=== PATIENT | male | born 1965 | race African-American/Black ===

== ENCOUNTER 2020-09-06 14:32 | Inpatient (IN) | payer MEDICARE, MEDICAID ==
[~2020-09-06] VITALS: Ht 172.7 cm; Wt 100.0 kg
--- NOTE | 2020-09-06 16:26 | Diagnostic Imaging Report ---
PROCEDURE: CT pelvis without contrast. TECHNIQUE: Multiple contiguous axial images were obtained through the pelvis without the use of intravenous contrast. Sagittal and coronal reformations were performed. Auto Exposure Controls were utilized during the CT exam to meet ALARA standards for radiation dose reduction. INDICATION: Sacral wound. Patient is nonverbal. CORRELATION STUDY: None FINDINGS: Soft tissue distortion and gas at the tip of the sacrum and coccyx. There is erosion of portions of the coccyx consistent with osteomyelitis. Diffuse soft tissue thickening is present. Definitive drainable abscess collection is not demonstrated. Mild stranding towards the level of the rectum. The remaining osseous structures are otherwise intact. Overhanging osteophytes at the right acetabulum. Femoral head acetabular relationships are maintained and the bony trabecular pattern is preserved. There is presence of a small right and to lesser degree left hip joint effusion. Urinary bladder is largely decompressed around a Degroot catheter. Small amount of gas is noted non-dependently. Visualized colon demonstrates moderate stool retention. IMPRESSION: Sacral decubitus ulcer with erosion of the coccyx compatible with underlying osteomyelitis. Dictated by: Dictated on workstation # [id number]
[2020-09-06 16:29] LABS: BILIRUBIN,URINE NEGATIVE (NEGATIVE); CLARITY,URINE CLOUDY; COLOR,URINE YELLOW; GLUCOSE, URINE (UA) NEGATIVE (NEGATIVE); KETONES,URINE NEGATIVE (NEGATIVE); LEUKOCYTE ESTERASE ,URINE 2+ (NEGATIVE); NITRITE,URINE NEGATIVE (NEGATIVE); PROTEIN,URINE TRACE (NEGATIVE)
[2020-09-06 16:38] LABS: BACTERIA,URINE NEGATIVE /HPF; RBC,URINE 0-2 /HPF; YEAST,URINE LARGE /HPF
--- NOTE | 2020-09-06 16:40 | Diagnostic Imaging Report ---
EXAM: Bilateral feet radiographs. EXAM DATE: 09/06/2020. COMPARISON: None. HISTORY: Bilateral feet wounds. TECHNIQUE: Two views of both feet. FINDINGS: There is no acute fracture, dislocation, or destructive osseous process. There are mild degenerative changes of the midfoot. Joint spaces are otherwise preserved. The soft tissues are normal. Small posterior calcaneal enthesophytes bilaterally. IMPRESSION: No acute osseous abnormality of the feet. No suspicious erosion to suggest osteomyelitis. Dictated by: Dictated on workstation # [id number]
--- NOTE | 2020-09-06 16:48 | ED General ---
General Chief Complaint: Skin/Wound Problems Stated Complaint: WOUND Nursing Triage Note: Pt brought to ER via [facility] from [facility] after telehealth with provider stating patient needed to go to ER for admission 6-8 weeks of antibiotics for a wound on his sacrum. Nursing Sepsis Screen: No Definite Risk Source of Information: Family, Assisted Records, Old Records Exam Limitations: No Limitations History of Present Illness Date Seen by Provider: Sep 06, 2020 Time Seen by Provider: 14:36 Initial Comments This 55-year-old gentleman presents to the emergency room via EMS from the [facility] after a telehealth visit with a wound care provider. He has a deep sacral wound with concern for possible osteomyelitis. 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 He is nonverbal. He does respond some to stimuli but does not meaningfully communicate. He has a tracheostomy and PEG tube. He also has necrotic decubitus ulcers on his heels. He had a stay at [place] before being admitted to the [facility]. The wound care provider felt he needed assessment in the emergency room with possible admission for IV antibiotics and surgery. Allergies and Home Medications Allergies Coded Allergies: No Known Drug Allergies (Unverified , 09/06/20) Home Medications Acetaminophen 325 Mg Tablet, 650 MG PEG TID, (Reported) Last Action: Continued Acetylcysteine 600 Mg Capsule, 1,200 MG PEG BID, (Reported) Last Action: Converted Amlodipine Besylate 10 Mg Tablet, 10 MG PEG DAILY, (Reported) HOLD IF SBP LESS THAN 100 Last Action: Continued Banana Flakes/Tos 1 Each Powd.pack, 1 EACH PEG TID, (Reported) Last Action: Converted Caffeine 200 Mg Tablet, 200 MG PEG BID, (Reported) Last Action: Converted Cholecalciferol (Vitamin D3) 1,250 Mcg Capsule, 1,250 MCG PEG FRI, (Reported) Last Action: Converted Cyanocobalamin (Vitamin B-12) 1,000 Mcg Tablet, 1,000 MCG PEG DAILY, (Reported) Last Action: Continued Dimethicone 118 Ml Cream.ml., 1 APPLIC TP BID, (Reported) APPLY TO BILATERAL GROIN Last Action: Converted Famotidine 20 Mg Tablet, 20 MG PEG BID, (Reported) Last Action: Continued Folic Acid 1 Mg Tablet, 4 MG PEG DAILY, (Reported) TAKES 1 (4MG) TABS Last Action: Continued Hydrocodone/Acetaminophen 1 Each Tablet, 2 TAB PEG DAILY, (Reported) GIVE 30MIN PRIOR TO DRESSING PAIN Last Action: Continued Insulin Lispro 100 Unit/1 Ml Insuln.pen, UNIT SQ QIDACHS, (Reported) 70-140=0 UNITS CALLS PHYSICIAN IF BS LESS THEN 70 141-180=2 UNITS 181-220=4 UNITS 221-260=6 UNITS 261-300=8 UNITS 301-340=10 UNITS 341-280=12 UNITS 281- 400=14 UNIT- CALL PHYSICAN IS BS GREATER THAN 400 Last Action: Held Ipratropium/Albuterol Sulfate 3 Ml Ampul.neb, 3 ML IH Q6H, (Reported) Last Action: Continued Lactobacillus Acidophilus 1 Each Capsule, 1 EACH PEG BID, (Reported) Last Action: Converted Lactose-Reduced Food/Fiber 1,000 Ml Liquid, 60 ML PEG BID, (Reported) 60ML/HR TWO TIMES A DAY START AT 0600. STOP FEEDING AT 2200 Last Action: Converted Metoprolol Tartrate 50 Mg Tablet, 50 MG PEG BID, (Reported) HOLD FOR SBP LESS THAN 100 Last Action: Continued Niacinamide 500 Mg Tablet, 1,500 MG PEG DAILY, (Reported) TAKES 3 (500MG) TABS Last Action: Converted [place]-3 Fatty Acids 1,000 Mg Capsule, 3,000 MG PEG DAILY, (Reported) TAKES 3 (1000MG) CAPS Last Action: Converted Thiamine HCl 100 Mg Tablet, 200 MG PEG BID, (Reported) TAKES 2 (100MG) TABS Last Action: Continued Ubidecarenone 200 Mg Capsule, 200 MG PEG DAILY, (Reported) Last Action: Converted Whey Protein Isolate 1 Each Powd.pack, 1 EACH PEG Q4H, (Reported) Last Action: Converted [Demeclocycline] 300 TAB, 300 MG PEG BID, (Reported) Last Action: Held Patient Home Medication List Home Medication List Reviewed: Yes Review of Systems Review of Systems Constitutional: no symptoms reported EENTM: see HPI Respiratory: see HPI Cardiovascular: no symptoms reported Gastrointestinal: see HPI Genitourinary: no symptoms reported Musculoskeletal: see HPI Skin: see HPI Psychiatric/Neurological: See HPI Hematologic/Lymphatic: No Symptoms Reported Immunological/Allergic: no symptoms reported Past Uxaoije-Ladalb-Zdvrdq Hx Past Med/Social Hx: Reviewed Nursing Past Med/Soc Hx Patient Social History Alcohol Use: Denies Use 2nd Hand Smoke Exposure: No Recent Infectious Disease Expo: No Recent Hopitalizations: Yes Immunizations Up To Date Tetanus Booster (TDap): Less than 5yrs PED Vaccines UTD: Yes Seasonal Allergies Seasonal Allergies: No Past Medical History Surgeries: Yes (PEG tube) Abdominal, Tracheostomy Respiratory: Yes (Chronic respiratory failure) Currently Using CPAP: No Currently Using BIPAP: No Cardiac: Yes Congenital Heart Disease, Hypertension Neurological: Yes (Dysphagia, aphasia) Seizure Disorder, Stroke Genitourinary: Yes UTI-Chronic Gastrointestinal: No Musculoskeletal: Yes Spasms, Contracture Endocrine: Yes Diabetes, Non-Insulin dep HEENT: Yes Chronic Eye Infection Cancer: No Psychosocial: No Integumentary: Yes Recent Skin Changes Blood Disorders: No Physical Exam Vital Signs Vital Signs - First Documented 09/06/20 09/06/20 16:00 16:05 Temp 36.3 Pulse 96 Resp 16 B/P (MAP) 113/86 (95) Pulse Ox 100 O2 Delivery Trach Collar O2 Flow Rate 2.00 Capillary Refill : Less Than 3 Seconds Height, Weight, BMI Height: '" Weight: lbs. oz. kg; 33.00 BMI Method: General Appearance: No Apparent Distress, WD/WN, Other (Minimally responsive) HEENT: Other (Mucous membranes moist. Purulent drainage from the right eye with a filmy appearance to the eye surface and slight injection of erythema.) Neck: Other (Tracheostomy in place) Respiratory: Lungs Clear, Normal Breath Sounds, No Accessory Muscle Use Cardiovascular: Regular Rate, Rhythm, No Edema, No Murmur Gastrointestinal: Normal Bowel Sounds, Non Tender, Soft, Other (Feeding tube in place) Extremity: Normal Inspection, No Pedal Edema Neurologic/Psychiatric: Other (Nearly complete quadriplegia. Responds primarily to pressure and other stimuli such as tracheostomy suctioning but tends not to respond to other stimuli) Skin: Warm/Dry, Other (Necrotic decubitus ulcers on both heels. Very deep sacral wound.) Focused Exam Lactate Level 09/06/20 17:42: Lactic Acid Level 1.64 Lactic Acid Level Laboratory Tests Test 09/06/20 17:42 Lactic Acid Level 1.64 MMOL/L (0.50-2.00) Progress/Results/Core Measures Suspected Sepsis Recent Fever Within 48 Hours: No Infection Criteria Present: None New/Unexplained Altered Menta: No Sepsis Screen: No Definite Risk SIRS Temperature: Pulse: 96 Respiratory Rate: 16 Blood Pressure 113 /86 Mean: 95 09/06/20 17:42: Lactic Acid Level 1.64 Laboratory Tests 09/06/20 16:55: INR Comment 1.1 Results/Orders Lab Results Laboratory Tests Test 09/06/20 16:22 09/06/20 16:55 09/06/20 17:42 Range/Units Urine Color YELLOW Urine Clarity CLOUDY Urine pH 5.0 5-9 Urine Specific [place] 1.020 1.016-1.022 Urine Protein TRACE H NEGATIVE Urine Glucose (UA) NEGATIVE NEGATIVE Urine Ketones NEGATIVE NEGATIVE Urine Nitrite NEGATIVE NEGATIVE Urine Bilirubin NEGATIVE NEGATIVE Urine Urobilinogen 0.2 < = 1.0 MG/DL Urine Leukocyte Esterase 2+ H NEGATIVE Urine RBC (Auto) 1+ H NEGATIVE Urine RBC 0-2 /HPF Urine WBC 10-25 H /HPF Urine Squamous Epithelial Cells NONE /HPF Urine Crystals NONE /LPF Urine Bacteria NEGATIVE /HPF Urine Casts NONE /LPF Urine Mucus NEGATIVE /LPF Urine Yeast LARGE H /HPF Urine Culture Indicated YES White Blood Count 15.8 H 4.3-11.0 10^3/uL Red Blood Count 3.91 L 4.30-5.52 10^6/uL Hemoglobin 11.9 L 13.3-17.7 g/dL Hematocrit 35 L 40-54 % Mean Corpuscular Volume 89 80-99 fL Mean Corpuscular Hemoglobin 30 25-34 pg Mean Corpuscular Hemoglobin Concent 34 32-36 g/dL Red Cell Distribution Width 13.5 10.0-14.5 % Platelet Count 431 H 130-400 10^3/uL Mean Platelet Volume 9.6 9.0-12.2 fL Immature Granulocyte % (Auto) 1 % Neutrophils (%) (Auto) 69 42-75 % Lymphocytes (%) (Auto) 18 12-44 % Monocytes (%) (Auto) 8 0-12 % Eosinophils (%) (Auto) 5 0-10 % Basophils (%) (Auto) 0 0-10 % Neutrophils # (Auto) 10.9 H 1.8-7.8 10^3/uL Lymphocytes # (Auto) 2.8 1.0-4.0 10^3/uL Monocytes # (Auto) 1.2 H 0.0-1.0 10^3/uL Eosinophils # (Auto) 0.7 H 0.0-0.3 10^3/uL Basophils # (Auto) 0.1 0.0-0.1 10^3/uL Immature Granulocyte # (Auto) 0.1 0.0-0.1 10^3/uL Neutrophils % (Manual) 70 % Lymphocytes % (Manual) 17 % Monocytes % (Manual) 5 % Eosinophils % (Manual) 7 % Basophils % (Manual) 1 % Band Neutrophils 0 % Blood Morphology Comment NORMAL Prothrombin Time 14.4 12.2-14.7 SEC INR Comment 1.1 0.8-1.4 Activated Partial Thromboplast Time 34 24-35 SEC Sodium Level 126 L 135-145 MMOL/L Potassium Level 4.9 3.6-5.0 MMOL/L Chloride Level 94 L 98-107 MMOL/L Carbon Dioxide Level 16 L 21-32 MMOL/L Anion Gap 16 H 5-14 MMOL/L Blood Urea Nitrogen 31 H 7-18 MG/DL Creatinine 0.77 0.60-1.30 MG/DL Estimat Glomerular Filtration Rate > 60 BUN/Creatinine Ratio 40 Glucose Level 152 H 70-105 MG/DL Calcium Level 10.9 H 8.5-10.1 MG/DL Corrected Calcium 11.3 H 8.5-10.1 MG/DL Total Bilirubin 0.6 0.1-1.0 MG/DL Aspartate Amino Transf (AST/SGOT) 26 5-34 U/L Alanine Aminotransferase (ALT/SGPT) 77 H 0-55 U/L Alkaline Phosphatase 186 H 40-136 U/L C-Reactive Protein High Sensitivity 13.20 H 0.00-0.50 MG/DL Total Protein 8.4 H 6.4-8.2 GM/DL Albumin 3.5 3.2-4.5 GM/DL Lactic Acid Level 1.64 0.50-2.00 MMOL/L Micro Results Microbiology 09/06/20 Blood Culture - Preliminary, Resulted No growth 09/06/20 Urine Culture - Final, Complete YEAST Klebsiella pneumoniae My Orders Orders - LEROY LOCK MD Cbc With Automated Diff (09/06/20 15:50) Comprehensive Metabolic Panel (09/06/20 15:50) Hs C Reactive Protein (09/06/20 15:50) Ua Culture If Indicated (09/06/20 15:50) Foot, Bilateral, 2 Views (09/06/20 15:50) Ct Pelvis Wo (09/06/20 15:50) Urine Culture (09/06/20 16:22) Manual Differential (09/06/20 16:55) Iv/Invasive Line Insertion .IV start (09/06/20 17:44) Ed Iv/Invasive Line Start (09/06/20 18:18) Piperacillin Sodium/Tazobactam (Zosyn Vi (09/06/20 18:30) Blood Culture (09/06/20 18:18) Sputum Culture (09/06/20 18:18) Protime With Inr (09/06/20 18:18) Partial Thromboplastin Time (09/06/20 18:18) Chest 1 View, Ap/Pa Only (09/06/20 18:18) Ed Iv/Invasive Line Start (09/06/20 18:18) Vital Signs Adult Sepsis Patie Q15M (09/06/20 18:18) Remove Rings In Anticipation O (09/06/20 18:18) Lactic Acid Analyzer (09/06/20 18:18) Erythromycin Ophth Oint (Erythromycin Op (09/06/20 22:00) Ed Iv/Invasive Line Start (09/06/20 18:36) Ns Iv 1000 Ml (Sodium Chloride 0.9%) (09/06/20 18:45) Vital Signs/I&O 09/06/20 09/06/20 16:00 16:05 Temp 36.3 Pulse 96 Resp 16 B/P (MAP) 113/86 (95) Pulse Ox 100 O2 Delivery Trach Collar Room Air O2 Flow Rate 2.00 Capillary Refill : Less Than 3 Seconds Blood Pressure Mean: 95 Progress Note : Time: 18:39 Progress Note Given patient's overall debility and the extensiveness of his decubitus wounds, I engaged in a very long and detailed conversation with his family present (brother and sister) regarding options. We discussed 3 levels of care including comfort care, antibiotic therapy without pursuit of surgical treatment, and aggressive care with pursuit of surgical treatment. I discussed this case multiple times with Dr. Moran as well. Patient's overall status makes his long- term prognosis poor. Family elected to initiate the evaluation process with imaging studies. CT of the pelvis revealed osteomyelitis of the coccyx. X-rays of the feet demonstrated no osteomyelitis. Septic work-up was then pursued. Antibiotic therapy is being initiated with Zosyn and vancomycin. IV hydration is being initiated with normal saline. Vascular access is quite difficult and he will likely need a more definitive line placed by Dr. Moran. I did clearly state to the patient's family that antibiotic therapy would not likely be curative and was only a temporizing measure. I additionally discussed the situation with the patient's mother by phone who is his medical power of [place] attorney. Her name is Truong Chester. She agrees with the children that antibiotic therapy without pursuit of surgery is most appropriate at this time. We also had a lengthy discussion about CODE STATUS. I described the risks and benefits of cardiac and pulmonary resuscitation. They would like to keep Cory a full CODE STATUS at this time. Patient did require some suction therapy from respiratory therapist. He is stable at this time. He will be admitted to the cardiac stepdown unit to Dr. Guzmán. Patient also appears to have a conjunctivitis of the right eye. Erythromycin ointment is being applied for initial therapy. Diagnostic Imaging Diagonstic Imaging: CT Plain Films/CT/US/NM/MRI: pelvis Comments CT pelvis viewed by me and report reviewed. See report below: NAME: CORY CHESTER MED REC#: [id number] PT STATUS: REG ER : 1965 PHYSICIAN: LEROY LOCK MD ADMIT DATE: 09/06/20/ER Draft Date of Exam:09/06/20 CT PELVIS WO PROCEDURE: CT pelvis without contrast. TECHNIQUE: Multiple contiguous axial images were obtained through the pelvis without the use of intravenous contrast. Sagittal and coronal reformations were performed. Auto Exposure Controls were utilized during the CT exam to meet ALARA standards for radiation dose reduction. INDICATION: Sacral wound. Patient is nonverbal. CORRELATION STUDY: None FINDINGS: Soft tissue distortion and gas at the tip of the sacrum and coccyx. There is erosion of portions of the coccyx consistent with osteomyelitis. Diffuse soft tissue thickening is present. Definitive drainable abscess collection is not demonstrated. Mild stranding towards the level of the rectum. The remaining osseous structures are otherwise intact. Overhanging osteophytes at the right acetabulum. Femoral head acetabular relationships are maintained and the bony trabecular pattern is preserved. There is presence of a small right and to lesser degree left hip joint effusion. Urinary bladder is largely decompressed around a Degroot catheter. Small amount of gas is noted non-dependently. Visualized colon demonstrates moderate stool retention. IMPRESSION: Sacral decubitus ulcer with erosion of the coccyx compatible with underlying osteomyelitis. Dictated on workstation # [id number] Dict: 09/06/20 1620 Trans: 09/06/20 1625 [facility] [id number] Interpreted by: AJAY SWENSON DO Diagonstic Imaging: Xray Comments X-rays of the bilateral feet viewed by me and report reviewed. See report below: NAME: CORY CHESTER [facility] REC#: [id number] PT STATUS: REG ER : 1965 PHYSICIAN: LEROY LOCK MD ADMIT DATE: 09/06/20/ER Draft Date of Exam:09/06/20 FOOT, BILATERAL, 2 VIEWS EXAM: Bilateral feet radiographs. EXAM DATE: 09/06/2020. COMPARISON: None. HISTORY: Bilateral feet wounds. TECHNIQUE: Two views of both feet. FINDINGS: There is no acute fracture, dislocation, or destructive osseous process. There are mild degenerative changes of the midfoot. Joint spaces are otherwise preserved. The soft tissues are normal. Small posterior calcaneal enthesophytes bilaterally. IMPRESSION: No acute osseous abnormality of the feet. No suspicious erosion to suggest osteomyelitis. Dictated on workstation # [id number] Dict: 09/06/20 1635 Trans: 09/06/20 1639 [facility] [id number] Interpreted by: DONNA HERNANDEZ DO Departure Communication (Admissions) Time/Spoke to Admitting Phy: 18:15 Dr. Guzmán Time/Spoke to Consulting Phy: 17:25 Dr. Moran Impression Primary Impression: Sepsis Qualified Codes: A41.9 - Sepsis, unspecified organism Additional Impressions: Osteomyelitis of coccyx Yeast UTI Conjunctivitis, right eye Qualified Codes: H10.31 - Unspecified acute conjunctivitis, right eye Hyponatremia Paralytic syndrome, post-stroke Decubitus ulcer, heel Qualified Codes: L89.609 - Pressure ulcer of unspecified heel, unspecified stage Disposition: ADMITTED INPATIENT Condition: Stable Admissions Decision to Admit Reason: Admit from ER (General) Decision to Admit/Date: Sep 06, 2020 Time/Decision to Admit Time: 18:05 Departure-Patient Inst. Referrals: ROSIE OAKLEY MD (PCP/Family) Primary Care Physician LEROY LOCK MD Sep 06, 2020 16:48
[2020-09-06 17:07] LABS: BASOPHILS # (AUTO) 0.1 10^3/uL (0.0-0.1); BASOPHILS % (AUTO) 0 % (0-10); EOSINOPHILS # (AUTO) 0.7 10^3/uL (0.0-0.3); EOSINOPHILS % (AUTO) 5 % (0-10); HEMATOCRIT 35 % (40-54); HEMOGLOBIN 11.9 g/dL (13.3-17.7); LYMPHOCYTES # (AUTO) 2.8 10^3/uL (1.0-4.0); LYMPHOCYTES % (AUTO) 18 % (12-44); MEAN CORPUSCULAR HEMOGLOBIN 30 pg (25-34); MEAN CORPUSCULAR HGB CONC 34 g/dL (32-36); MEAN CORPUSCULAR VOLUME 89 fL (80-99); MEAN PLATELET VOLUME 9.6 fL (9.0-12.2); MONOCYTES # (AUTO) 1.2 10^3/uL (0.0-1.0); MONOCYTES % (AUTO) 8 % (0-12); NEUTROPHILS # (AUTO) 10.9 10^3/uL (1.8-7.8); NEUTROPHILS % (AUTO) 69 % (42-75); PLATELET COUNT 431 10^3/uL (130-400); WHITE BLOOD COUNT 15.8 10^3/uL (4.3-11.0)
[2020-09-06 17:16] LABS: ALBUMIN 3.5 GM/DL (3.2-4.5); CHLORIDE 94 MMOL/L (98-107); POTASSIUM 4.9 MMOL/L (3.6-5.0); SODIUM 126 MMOL/L (135-145)
[2020-09-06 17:18] LABS: CALCIUM 10.9 MG/DL (8.5-10.1)
[2020-09-06 17:19] LABS: GLUCOSE 152 MG/DL (70-105); TOTAL PROTEIN 8.4 GM/DL (6.4-8.2)
[2020-09-06 17:20] LABS: CARBON DIOXIDE 16 MMOL/L (21-32)
[2020-09-06 17:21] LABS: BILIRUBIN,TOTAL 0.6 MG/DL (0.1-1.0)
[2020-09-06 17:22] LABS: ALKALINE PHOSPHATASE 186 U/L (40-136)
[2020-09-06 17:23] LABS: CREATININE SERUM 0.77 MG/DL (0.60-1.30); GFR ESTIMATED > 60
[2020-09-06 17:24] LABS: BUN/CREATININE RATIO 40
[2020-09-06 17:25] LABS: ALANINE AMINOTRANSFERASE 77 U/L (0-55)
[2020-09-06 17:42] LABS: BAND NEUTROPHILS 0 %; BASOPHILS % (MANUAL) 1 %; EOSINOPHILS % (MANUAL) 7 %; LYMPHOCYTES % (MANUAL) 17 %; MONOCYTES % (MANUAL) 5 %; NEUTROPHILS % (MANUAL) 70 %; RBC MORPH NORMAL
[2020-09-06] MEDS ORDERED: PIPERACILLIN SODIUM/TAZOBACTAM 4.5 GM in NS (IVPB) 100 ML IV ONE (18:30)
[2020-09-06 18:35] LABS: INR 1.1 (0.8-1.4); PROTHROMBIN TIME PATIENT 14.4 SEC (12.2-14.7)
[2020-09-06] MEDS ORDERED: NS IV 1000 ML 1,000 ML IV SCH (18:45)
--- NOTE | 2020-09-06 19:15 | Diagnostic Imaging Report ---
EXAMINATION: Chest 1 view. HISTORY: Sepsis. COMPARISON: None available. FINDINGS: Heart size and pulmonary vasculature are normal. There are low lung volumes, bilaterally. There are right basilar airspace opacities. No significant pleural fluid or pneumothorax is seen. The lung bases are not as well visualized secondary to patient positioning and low lung volumes. A tracheostomy is present. The osseous structures are intact. IMPRESSION: Low lung volumes with right basilar atelectasis or consolidation. Dictated by: Dictated on workstation # [id number]
--- NOTE | 2020-09-06 20:25 | CONSULTATION REPORT ---
DATE OF SERVICE: ATTENDING PRIMARY CARE PHYSICIAN: Dr. Timothy Acosta. ADMITTING PHYSICIAN: Dr. Guzmán. HISTORY OF PRESENT ILLNESS: The patient is a 55-year-old male who is a resident of [facility]. He suffered a massive cerebrovascular accident in June of this year, resulting in significant neurologic deficits in all four extremities and is nonverbal and only responds to painful stimuli. He also does have a tracheostomy and percutaneous gastrostomy tube. He was brought in due to sacral decubitus ulcers as well as ulcerations of bilateral heels. The patient is nonverbal; however, the family is present and reports that the patient is full code and wanted to proceed with further workup. It was explained to the family that if workup did identify osteomyelitis of the sacrum that the proper treatment would encompass resection of the bone as well as clearance of infection and possible flap closure. Due to the anatomy of the sacrum as well as the nerve endings, this would most likely be done by ortho spinal surgery as wekll as plastic surgery. The family is understanding of this; however, is adamant about admission and IV antibiotics even though we don't have those services offered at this institution. PAST MEDICAL HISTORY: CVA with dysphagia, aphasia, no functional mobility of all four extremities. Non-insulin dependent diabetes, chronic urinary tract infection, seizure disorder, COPD. ALLERGIES: No known drug allergies. MEDICATIONS: See medication reconciliation. SOCIAL HISTORY: Negative alcohol. Negative smoke. FAMILY HISTORY: Noncontributory. VITAL SIGNS: Temperature 36.3, blood pressure 113/86, pulse 96, respirations 16, pulse ox 100% on trach collar at O2 flow rate of 2 liters per minute. REVIEW OF SYSTEMS: The patient is an obese male who is nonverbal and does not move any extremities. He also has a gastrostomy tube for alimentation as well as a tracheostomy for supplemental oxygenation. He was found to have a sacral decubitus ulcer as well as bilateral heel ulcers. A CT scan was performed, which did show some lytic changes of the sacrum consistent with osteomyelitis. No known fever or chills as well as no known recent inadvertent weight loss. All other review of systems negative. PHYSICAL EXAMINATION: CHEST: Few scattered rales bilaterally. HEART: Regular, no murmurs. EXTREMITIES: +1/3 bilateral lower extremity edema, negative Homans sign. HEENT: No scleral icterus. NECK: No cervical lymphadenopathy. ABDOMEN: Soft, nontender, nondistended. SKIN: There is a full thickness stage IV decubitus ulcer overlying the sacrum as well as bilateral heel ulcers. LABORATORY DATA: WBC 15.8, hemoglobin 11.9, hematocrit 35, platelets 431. BUN 31, creatinine 0.77. ASSESSMENT AND PLAN: A 55-year-old male with significantly debilitating cerebrovascular accident with no functional capacity and dependent on tracheostomy as well as gastrostomy tube. The family wanted to pursue further workup and evaluation. It was explained that if they wanted to pursue surgery that we do not have the resources here and that he would need to be transferred likely to plastic surgery, spinal orthopedics or both. For now, the patient is going to be admitted and will be started on IV antibiotics as well as wound care with wet to dry dressings on a b.i.d. basis. Job ID: [id number] DocumentID: [id number] Dictated Date: 09/06/2020 20:00:05 Tobacco Cutter Date: 09/06/2020 20:24:34 Dictated By: CARMINE WHITE MD MTDD
[2020-09-06 20:26] VITALS: BP 95/65
[2020-09-06] MEDS ORDERED: VANCOMYCIN 2000 MG/NS 500 ML IVPB IV NR ×2 (20:30)
[2020-09-06] MEDS ORDERED: PIPERACILLIN/TAZO 4.5 GM/NS 100 ML IV NR ×2 (20:30)
[2020-09-06] MEDS ORDERED: FLUCONAZOLE 200 MG/100 ML 100 ML IV NR (20:30)
[2020-09-06] MEDS ORDERED: ONDANSETRON 4 MG/2 ML (SDV) Z0FRAN IV PRN (20:45)
[2020-09-06] MEDS ORDERED: VANCOMYCIN 1000 MG/VIAL ONE (21:47)
[2020-09-06] MEDS ORDERED: NS (IVPB) 100 ML ONE (21:47)
[2020-09-06] MEDS ORDERED: PIPERACILLIN/TAZO 4.5 GM VIAL (ZOSYN) IV ONE (21:47)
[2020-09-06] MEDS ORDERED: NS IV 500 ML 500 ML ONE (21:48)
[2020-09-06] MEDS ORDERED: ERYTHROMYCIN OPHTH OINT 1 GM (SINGLE USE) TUBE OP SCH (22:00)
[2020-09-06] MEDS: NS IV 1000 ML 1,000 ML IV SCH (22:06)
[2020-09-06] MEDS: fentaNYL INJ 100 MCG/2 ML AMP IV SCH (22:06)
[2020-09-06] MEDS ORDERED: RT-ALBUTEROL/IPRATROPIUM 3 ML (DUONEB) VIAL INH PRN (23:30)
[2020-09-06] MEDS: ERYTHROMYCIN OPHTH OINT 1 GM (SINGLE USE) TUBE OD SCH (23:50)
[2020-09-07] VITALS (7 sets, daily range): BP systolic 107–136; BP diastolic 71–94
[2020-09-07] MEDS: inSUlin ASPART (NovoLOG) 1 UNIT/0.01 ML (CHARGE PER UNIT) SC SCH ×5 (00:15→20:42)
[2020-09-07 01:55] LABS: BASOPHILS # (AUTO) 0.1 10^3/uL (0.0-0.1); BASOPHILS % (AUTO) 0 % (0-10); EOSINOPHILS # (AUTO) 0.5 10^3/uL (0.0-0.3); EOSINOPHILS % (AUTO) 3 % (0-10); HEMATOCRIT 30 % (40-54); HEMOGLOBIN 10.3 g/dL (13.3-17.7); LYMPHOCYTES # (AUTO) 1.9 10^3/uL (1.0-4.0); LYMPHOCYTES % (AUTO) 15 % (12-44); MEAN CORPUSCULAR HEMOGLOBIN 30 pg (25-34); MEAN CORPUSCULAR HGB CONC 34 g/dL (32-36); MEAN CORPUSCULAR VOLUME 88 fL (80-99); MEAN PLATELET VOLUME 9.7 fL (9.0-12.2); MONOCYTES % (AUTO) 7 % (0-12); NEUTROPHILS # (AUTO) 9.7 10^3/uL (1.8-7.8); NEUTROPHILS % (AUTO) 74 % (42-75); PLATELET COUNT 381 10^3/uL (130-400); WHITE BLOOD COUNT 13.2 10^3/uL (4.3-11.0)
[2020-09-07 02:11] LABS: CHLORIDE 101 MMOL/L (98-107); POTASSIUM 4.7 MMOL/L (3.6-5.0); SODIUM 130 MMOL/L (135-145)
[2020-09-07 02:12] LABS: CALCIUM 9.7 MG/DL (8.5-10.1)
[2020-09-07 02:13] LABS: GLUCOSE 161 MG/DL (70-105)
[2020-09-07 02:14] LABS: TOTAL PROTEIN 6.9 GM/DL (6.4-8.2)
[2020-09-07 02:15] LABS: CARBON DIOXIDE 15 MMOL/L (21-32)
[2020-09-07 02:16] LABS: BILIRUBIN,TOTAL 0.7 MG/DL (0.1-1.0)
[2020-09-07 02:17] LABS: ALKALINE PHOSPHATASE 149 U/L (40-136); CREATININE SERUM 0.75 MG/DL (0.60-1.30); GFR ESTIMATED > 60
[2020-09-07 02:18] LABS: BUN/CREATININE RATIO 33
[2020-09-07 02:20] LABS: ALANINE AMINOTRANSFERASE 57 U/L (0-55)
[2020-09-07] MEDS: RT-ALBUTEROL/IPRATROPIUM 3 ML (DUONEB) VIAL INH SCH ×6 (02:36→22:08)
[2020-09-07] MEDS ORDERED: PIPERACILLIN/TAZO 4.5 GM VIAL (ZOSYN) IV ONE (03:11)
[2020-09-07] MEDS: NS IV 1000 ML 1,000 ML IV SCH ×4 (04:00→18:15)
[2020-09-07] MEDS: PIPERACILLIN/TAZO 4.5 GM/NS 100 ML IV SCH ×6 (04:00→18:52)
[2020-09-07] MEDS: ERYTHROMYCIN OPHTH OINT 1 GM (SINGLE USE) TUBE OD SCH ×4 (05:14→21:00)
--- NOTE | 2020-09-07 08:16 | Diagnostic Imaging Report ---
INDICATION: Sepsis. Comparison made with prior examination from 09/06/2020. FINDINGS: The heart size is normal. There is some patchy bibasilar subsegmental atelectasis and/or pneumonitis. There is no pleural effusion or pneumothorax. The mediastinum is unremarkable. Tracheostomy tube remains in place. IMPRESSION: Patchy bibasilar subsegmental atelectasis and/or pneumonitis. Dictated by: Dictated on workstation # [id number]
[2020-09-07] MEDS: VANCOMYCIN 1500 MG/NS 500 ML IVPB IV SCH ×4 (08:45→20:59)
[2020-09-07] MEDS: fentaNYL INJ 100 MCG/2 ML AMP IV SCH ×2 (09:59→21:00)
--- NOTE | 2020-09-07 11:31 | History & Physical-Hospitalist ---
History of Present Illness HPI/Chief Complaint This 55-year-old gentleman presents to the emergency room via EMS from the [facility] after a telehealth visit with a wound care provider. He has a deep sacral wound with concern for possible osteomyelitis. 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 He is nonverbal. He does respond some to stimuli but does not meaningfully communicate. He has a tracheostomy and PEG tube. He also has necrotic decubitus ulcers on his heels. He had a stay at [facility] before being admitted to the [facility]. The wound care provider felt he needed assessment in the emergency room with possible admission for IV antibiotics and surgery. Upon my arrival family were not present and the patient noted to be in a persistent vegetative state does not orient to voice or follow commands. Does not appear to be in acute distress. Date Seen 09/07/20 Time Seen by a Provider: 07:45 Attending Physician Rex Naidu MD PCP Timothy Pate MD Referring Physician Date of Admission Sep 06, 2020 at 18:43 Home Medications & Allergies Home Medications Reviewed patient Home Medication Reconciliation performed by pharmacy medication reconciliations target aircraft technician and/or nursing. Patients Allergies have been reviewed. Allergies Allergies Coded Allergies No Known Drug Allergies (Unverified09/06/20) Immunizations Up To Date Hepatitis A: Yes Hepatitis B: Yes Review of Systems Constitutional: see HPI Physical Exam Physical Exam Vital Signs Vital Signs - First Documented 09/06/20 09/06/20 09/06/20 16:00 16:05 21:00 Temp 36.3 Pulse 96 Resp 16 B/P (MAP) 113/86 (95) Pulse Ox 100 O2 Delivery Trach Collar O2 Flow Rate 2.00 FiO2 4 Capillary Refill : Less Than 3 Seconds Height, Weight, BMI Height: '" Weight: lbs. oz. kg; 33.00 BMI Method: General Appearance: No Apparent Distress, Obese HEENT: Other (Pupils are equal and round) Respiratory: No Accessory Muscle Use, No Respiratory Distress, Other (Coarse breath sounds throughout) Cardiovascular: Regular Rate, Rhythm, No Edema, No Gallop, No JVD, No Murmur Gastrointestinal: Normal Bowel Sounds, No Organomegaly, No Pulsatile Mass, Non Tender, Soft, Other (Unremarkable PEG tube site no evidence for erythema or induration) Neurologic/Psychiatric: Other (Persistent vegetative state nonresponsive unable to follow commands does not orient to voice.) Results Results/Procedures Labs Laboratory Tests 09/06/20 16:55 09/07/20 01:34 Patient resulted labs reviewed. Assessment/Plan Admission Diagnosis 1. Osteomyelitis with secondary sepsis Not severe patient is extremely poor candidate for surgery and would expect wound recurrence even if they were able to close the defect with plastic surgery after the extensive sacral debridement that would be necessary. This was communicated to the patient's family by the emergency room physician and the surgeon last night however they still requested admission with IV antibiotics which we will continue and they are still insistent on full CODE STATUS. I have not yet had the opportunity to discuss the unfortunate circumstances for which antibiotic cure alone is highly unlikely. 2. Persistent vegetative state following a massive CVA in June of this year. Admission Status: Inpatient Order (span 2 midnights) Reason for Inpatient Admission: See Admission diagnosis REX NAIDU MD Sep 07, 2020 11:31
--- NOTE | 2020-09-07 11:58 | Progress Note ---
Subjective Date Seen by a Provider: Sep 07, 2020 Time Seen by a Provider: 11:00 Subjective/Events-last exam pt non-verbal. wound dressed dry Focused Exam Lactate Level 09/06/20 17:42: Lactic Acid Level 1.64 Objective Exam Vital Signs Date Time Temp Pulse Resp B/P (MAP) Pulse Ox O2 Delivery O2 Flow Rate FiO2 09/07/20 11:42 36.6 102 25 135/89 (104) 100 Trach Collar 4.00 09/07/20 10:50 100 Trach Collar 6.00 21 09/07/20 08:00 100 Trach Collar 21 09/07/20 07:26 36.2 98 24 130/76 (94) 100 Trach Collar 4.00 09/07/20 07:00 102 09/07/20 06:36 100 Trach Collar 6.00 21 09/07/20 04:01 36.0 101 23 108/73 (85) 100 Room Air 09/07/20 02:37 100 21 09/07/20 00:50 37.2 116 29 107/71 (83) 99 Room Air 09/07/20 00:37 124 09/06/20 23:12 37.0 96 95 4 09/06/20 21:00 95 Trach Collar 4 09/06/20 20:26 36.9 110 26 95/65 (75) 95 Trach Collar 4.00 09/06/20 19:52 96 20 118/68 99 Trach Collar 4.00 09/06/20 16:05 36.3 96 16 113/86 (95) Room Air 09/06/20 16:00 100 Trach Collar 2.00 I & O 09/07/20 07:00 Intake Total 0 ml Output Total 1125 ml Balance -1125 ml Capillary Refill : Less Than 3 Seconds General Appearance: No Apparent Distress Neck: Non Tender Respiratory: Decreased Breath Sounds Cardiovascular: Regular Rate, Rhythm Gastrointestinal: normal bowel sounds, non tender, soft Extremity: Other (no spontaeous movements) Skin: Normal Color Lymphatic: No Adenopathy Results Lab Laboratory Tests 09/06/20 16:22: Urine Color YELLOW, Urine Clarity CLOUDY, Urine pH 5.0, Urine Specific [place] 1.020, Urine Protein TRACEH, Urine Glucose (UA) NEGATIVE, Urine Ketones NEGATIVE, Urine Nitrite NEGATIVE, Urine Bilirubin NEGATIVE, Urine Urobilinogen 0.2, Urine Leukocyte Esterase 2+H, Urine RBC (Auto) 1+H, Urine RBC 0-2, Urine WBC 10-25H, Urine Squamous Epithelial Cells NONE, Urine Crystals NONE, Urine Bacteria NEGATIVE, Urine Casts NONE, Urine Mucus NEGATIVE, Urine Yeast LARGEH, Urine Culture Indicated YES 09/06/20 16:55: White Blood Count 15.8H, Red Blood Count 3.91L, Hemoglobin 11.9L, Hematocrit 35L , Mean Corpuscular Volume 89, Mean Corpuscular Hemoglobin 30, Mean Corpuscular Hemoglobin Concent 34, Red Cell Distribution Width 13.5, Platelet Count 431H, Mean Platelet Volume 9.6, Immature Granulocyte % (Auto) 1, Neutrophils (%) (Auto) 69, Lymphocytes (%) (Auto) 18, Monocytes (%) (Auto) 8, Eosinophils (%) (Auto) 5, Basophils (%) (Auto) 0, Neutrophils # (Auto) 10.9H, Lymphocytes # (Auto) 2.8, Monocytes # (Auto) 1.2H, Eosinophils # (Auto) 0.7H, Basophils # (Auto) 0.1, Immature Granulocyte # (Auto) 0.1, Neutrophils % (Manual) 70, Lymphocytes % (Manual) 17, Monocytes % (Manual) 5, Eosinophils % (Manual) 7, Basophils % (Manual) 1, Band Neutrophils 0, Blood Morphology Comment NORMAL, Prothrombin Time 14.4, INR Comment 1.1, Activated Partial Thromboplast Time 34, Sodium Level 126L, Potassium Level 4.9, Chloride Level 94L, Carbon Dioxide Level 16L, Anion Gap 16H, Blood Urea Nitrogen 31H, Creatinine 0.77, Estimat Glomerular Filtration Rate > 60, BUN/Creatinine Ratio 40, Glucose Level 152H, Calcium Level 10.9H, Corrected Calcium 11.3H, Total Bilirubin 0.6, Aspartate Amino Transf (AST/SGOT) 26, Alanine Aminotransferase (ALT/SGPT) 77H, Alkaline Phosphatase 186H, C-Reactive Protein High Sensitivity 13.20H, Total Protein 8.4H, Albumin 3.5 09/06/20 17:42: Lactic Acid Level 1.64 09/07/20 01:34: White Blood Count 13.2H, Red Blood Count 3.44L, Hemoglobin 10.3L, Hematocrit 30L , Mean Corpuscular Volume 88, Mean Corpuscular Hemoglobin 30, Mean Corpuscular Hemoglobin Concent 34, Red Cell Distribution Width 13.4, Platelet Count 381, Mean Platelet Volume 9.7, Immature Granulocyte % (Auto) 1, Neutrophils (%) (Auto) 74, Lymphocytes (%) (Auto) 15, Monocytes (%) (Auto) 7, Eosinophils (%) (Auto) 3, Basophils (%) (Auto) 0, Neutrophils # (Auto) 9.7H, Lymphocytes # (Auto) 1.9, Monocytes # (Auto) 1.0, Eosinophils # (Auto) 0.5H, Basophils # (Auto) 0.1, Immature Granulocyte # (Auto) 0.1, Sodium Level 130L, Potassium Level 4.7, Chloride Level 101, Carbon Dioxide Level 15L, Anion Gap 14, Blood Urea Nitrogen 25H, Creatinine 0.75, Estimat Glomerular Filtration Rate > 60, BUN/Creatinine Ratio 33, Glucose Level 161H, Calcium Level 9.7, Corrected Calcium 10.5H, Total Bilirubin 0.7, Aspartate Amino Transf (AST/SGOT) 19, Ala nine Aminotransferase (ALT/SGPT) 57H, Alkaline Phosphatase 149H, Total Protein 6.9, Albumin 3.0L 09/07/20 11:41: Glucometer 164H Microbiology 09/06/20 Blood Culture - Preliminary, Resulted 09/06/20 Urine Culture - Preliminary, Resulted YEAST Gram Negative Rell Assessment/Plan Assessment/Plan Assess & Plan/Chief Complaint sacral decubitus with osteomyelitis. wet to dry BID. IV abx. if family wants to pursue surgery would recommend tertiary center with plastic/ortho spine surgery. CARMINE WHITE MD Sep 07, 2020 11:58
[2020-09-07] MEDS ORDERED: AMLO-251 PEG (13:51)
[2020-09-07] MEDS ORDERED: BANA1PAC PEG (13:51)
[2020-09-07] MEDS ORDERED: ACET650O4 PEG (13:51)
[2020-09-07] MEDS ORDERED: ACET325T49 PEG (13:51)
[2020-09-07] MEDS ORDERED: ACET200V4 PEG (13:51)
[2020-09-07] MEDS ORDERED: [UNRECOGNIZED DRUG - CODE] PEG (14:11)
[2020-09-07] MEDS ORDERED: PROT1PAC2 PEG (14:11)
[2020-09-07] MEDS ORDERED: DEMECLOCYCLINE HCL PEG (14:12)
[2020-09-07] MEDS ORDERED: FOLI1TAB33 PEG (14:12)
[2020-09-07] MEDS ORDERED: FAMO20TA3 PEG (14:12)
[2020-09-07] MEDS ORDERED: CHOL500049 PEG (14:12)
[2020-09-07] MEDS ORDERED: OMEG1000 PEG (14:12)
[2020-09-07] MEDS ORDERED: DIME118C3 TP (14:12)
[2020-09-07] MEDS ORDERED: [UNRECOGNIZED DRUG - CODE] PEG (14:12)
[2020-09-07] MEDS ORDERED: ACHD5005 PEG (14:19)
[2020-09-07] MEDS ORDERED: IPRA3AMP31 IH (14:26)
[2020-09-07] MEDS ORDERED: [UNRECOGNIZED DRUG - CODE] PEG (14:26)
[2020-09-07] MEDS ORDERED: LACT1CAP8 PEG (14:51)
[2020-09-07] MEDS ORDERED: METO-451 PEG (14:51)
[2020-09-07] MEDS: FLUCONAZOLE 100 MG/50 ML 50 ML IV SCH (20:59)
[2020-09-08] VITALS (7 sets, daily range): BP systolic 130–141; BP diastolic 81–99
[2020-09-08] MEDS: NS IV 1000 ML 1,000 ML IV SCH ×4 (00:46→20:42)
[2020-09-08] MEDS: RT-ALBUTEROL/IPRATROPIUM 3 ML (DUONEB) VIAL INH SCH ×6 (02:12→22:18)
[2020-09-08] MEDS: PIPERACILLIN/TAZO 4.5 GM/NS 100 ML IV SCH ×6 (02:24→17:50)
[2020-09-08] MEDS: inSUlin ASPART (NovoLOG) 1 UNIT/0.01 ML (CHARGE PER UNIT) SC SCH ×4 (05:36→21:18)
[2020-09-08] MEDS: ERYTHROMYCIN OPHTH OINT 1 GM (SINGLE USE) TUBE OD SCH ×3 (05:36→20:42)
[2020-09-08] MEDS ORDERED: TROUGH ORDER-PHARMACY XX NR (07:00)
[2020-09-08] MEDS: fentaNYL INJ 100 MCG/2 ML AMP IV SCH ×2 (09:15→20:41)
[2020-09-08] MEDS: VANCOMYCIN 1250 MG/NS 250 ML IVPB IV SCH ×4 (09:33→20:41)
--- NOTE | 2020-09-08 09:55 | Progress Note - Hospitalist ---
Subjective HPI/CC On Admission Date Seen by Provider: Sep 08, 2020 Time Seen by Provider: 07:30 This 55-year-old gentleman [facility] a telehealth visit with a wound care provider. He has a deep sacral wound with concern for possible osteomyelitis. 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 He is nonverbal. He does respond some to stimuli but does not meaningfully communicate. He has a tracheostomy and PEG tube. He also has necrotic decubitus ulcers on his heels. He had a stay at [place] [facility] [facility] The wound care provider felt he needed assessment in the emergency room with possible admission for IV antibiotics and surgery. Upon my arrival family were not present and the patient noted to be in a persistent vegetative state does not orient to voice or follow commands. Does not appear to be in acute distress. Subjective/Events-last exam Status unchanged nonresponsive appears to be in no acute distress no reports of hypoxemia family have not been in to discuss care issues going forward. Focused Exam Lactate Level 09/06/20 17:42: Lactic Acid Level 1.64 Objective Exam Vital Signs Vital Signs Date Time Temp Pulse Resp B/P (MAP) Pulse Ox O2 Delivery O2 Flow Rate FiO2 09/08/20 07:28 36.8 105 26 134/90 (105) 97 Trach Collar 21.00 09/08/20 07:01 21 Capillary Refill : Less Than 3 Seconds General Appearance: No Apparent Distress Respiratory: No Accessory Muscle Use, No Respiratory Distress, Other (Coarse breath sounds bilaterally with good air movement no wheezing decreased breath sounds both bases unchanged.) Cardiovascular: Regular Rate, Rhythm, No Gallop, No JVD, No Murmur Gastrointestinal: Normal Bowel Sounds, No Organomegaly, No Pulsatile Mass, Soft Results/Procedures Lab Patient resulted labs reviewed. Assessment/Plan Assessment and Plan Assess & Plan/Chief Complaint 1. Osteomyelitis with secondary sepsis Not severe patient is extremely poor candidate for surgery and would expect wound recurrence even if they were able to close the defect with plastic surgery after the extensive sacral debridement that would be necessary. This was communicated to the patient's family by the emergency room physician and the surgeon last night however they still requested admission with IV antibiotics which we will continue and they are still insistent on full CODE STATUS. I have not yet had the opportunity to discuss Mr. Lewis's unfortunate circumstances for which antibiotic cure alone is highly unlikely. Sepsis has resolved and the patient has likely received maximum hospital benefit would consider discharge on Augmentin for indefinite use unless previous wound cultures have suggested the possibility of a better option. 2. Persistent vegetative state following a massive CVA in June of this year. POLA NAIDU MD Sep 08, 2020 09:55
--- NOTE | 2020-09-08 10:44 | Progress Note ---
Subjective Date Seen by a Provider: Sep 08, 2020 Time Seen by a Provider: 10:00 Subjective/Events-last exam patient stable. no change in clinical status, VSS, afebrile. Focused Exam Lactate Level 09/06/20 17:42: Lactic Acid Level 1.64 Objective Exam Vital Signs Date Time Temp Pulse Resp B/P (MAP) Pulse Ox O2 Delivery O2 Flow Rate FiO2 09/08/20 10:37 100 Trach Collar 6.00 21 09/08/20 07:28 36.8 105 26 134/90 (105) 97 Trach Collar 21.00 09/08/20 07:01 100 Trach Collar 6.00 21 09/08/20 07:00 101 09/08/20 04:30 36.4 102 20 136/91 (106) 97 Trach Collar 21.00 09/08/20 02:12 100 Trach Collar 6.00 21 09/08/20 01:00 102 09/08/20 00:00 99 17 130/99 (109) 100 Trach Collar 21.00 09/07/20 23:11 36.5 Trach Collar 21.00 09/07/20 23:00 100 22 125/90 (102) 100 Trach Collar 21.00 09/07/20 22:08 100 Trach Collar 6.00 21 09/07/20 21:38 99 Trach Collar 21 09/07/20 20:24 36.3 97 25 123/80 (94) 100 Trach Collar 09/07/20 19:00 100 09/07/20 18:16 99 Trach Collar 6.00 21 09/07/20 16:25 36.8 98 26 136/94 (108) 99 Trach Collar 4.00 09/07/20 14:24 100 Trach Collar 6.00 21 09/07/20 12:36 102 09/07/20 11:42 36.6 102 25 135/89 (104) 100 Trach Collar 4.00 09/07/20 10:50 100 Trach Collar 6.00 21 I & O 09/08/20 07:00 Intake Total 3670 ml Output Total 1850 ml Balance 1820 ml Capillary Refill : Less Than 3 Seconds General Appearance: No Apparent Distress HEENT: PERRL/EOMI Neck: Full Range of Motion Respiratory: Chest Non Tender Cardiovascular: Regular Rate, Rhythm Gastrointestinal: normal bowel sounds Extremity: Normal Capillary Refill Skin: Normal Color Lymphatic: No Adenopathy Results Lab Laboratory Tests 09/07/20 11:41: Glucometer 164H 09/07/20 16:28: Glucometer 128H 09/07/20 20:39: Glucometer 121H 09/08/20 05:35: Glucometer 154H 09/08/20 07:25: Vancomycin Level Trough 21.5H Microbiology 09/06/20 Blood Culture - Preliminary, Resulted No growth 09/06/20 Urine Culture - Preliminary, Resulted YEAST Probable Klebsiella/Enterobact Assessment/Plan Assessment/Plan Assess & Plan/Chief Complaint sacral decubitus with osteomyelitis. wet to dry BID. IV abx. if family wants to pursue surgery would recommend tertiary center with plastic/ortho spine surgery however prognosis poor due to immobility CARMINE WHITE MD Sep 08, 2020 10:44
[2020-09-08] MEDS: FLUCONAZOLE 100 MG/50 ML 50 ML IV SCH (20:41)
[2020-09-09] MEDS: PIPERACILLIN/TAZO 4.5 GM/NS 100 ML IV SCH ×6 (01:25→17:46)
[2020-09-09] MEDS: NS IV 1000 ML 1,000 ML IV SCH (01:25)
[2020-09-09] MEDS: RT-ALBUTEROL/IPRATROPIUM 3 ML (DUONEB) VIAL INH SCH ×6 (02:52→22:26)
[2020-09-09 03:43] VITALS: BP 138/85
[2020-09-09] MEDS: inSUlin ASPART (NovoLOG) 1 UNIT/0.01 ML (CHARGE PER UNIT) SC SCH ×6 (05:07→21:08)
[2020-09-09] MEDS: ERYTHROMYCIN OPHTH OINT 1 GM (SINGLE USE) TUBE OD SCH ×3 (05:08→21:09)
[2020-09-09 06:48] LABS: BASOPHILS % (AUTO) 1 % (0-10); EOSINOPHILS # (AUTO) 0.4 10^3/uL (0.0-0.3); EOSINOPHILS % (AUTO) 5 % (0-10); HEMATOCRIT 26 % (40-54); HEMOGLOBIN 8.8 g/dL (13.3-17.7); LYMPHOCYTES # (AUTO) 1.2 10^3/uL (1.0-4.0); LYMPHOCYTES % (AUTO) 15 % (12-44); MEAN CORPUSCULAR HEMOGLOBIN 31 pg (25-34); MEAN CORPUSCULAR HGB CONC 33 g/dL (32-36); MEAN CORPUSCULAR VOLUME 92 fL (80-99); MEAN PLATELET VOLUME 9.1 fL (9.0-12.2); MONOCYTES # (AUTO) 0.6 10^3/uL (0.0-1.0); MONOCYTES % (AUTO) 7 % (0-12); NEUTROPHILS # (AUTO) 6.1 10^3/uL (1.8-7.8); NEUTROPHILS % (AUTO) 72 % (42-75); PLATELET COUNT 266 10^3/uL (130-400); WHITE BLOOD COUNT 8.4 10^3/uL (4.3-11.0)
[2020-09-09 06:58] LABS: ALBUMIN 2.6 GM/DL (3.2-4.5)
[2020-09-09 06:59] LABS: CHLORIDE 115 MMOL/L (98-107); POTASSIUM 3.4 MMOL/L (3.6-5.0); SODIUM 141 MMOL/L (135-145)
[2020-09-09 07:00] LABS: CALCIUM 8.7 MG/DL (8.5-10.1)
[2020-09-09 07:01] LABS: GLUCOSE 122 MG/DL (70-105); TOTAL PROTEIN 5.9 GM/DL (6.4-8.2)
[2020-09-09 07:02] LABS: CARBON DIOXIDE 15 MMOL/L (21-32)
[2020-09-09 07:03] LABS: BILIRUBIN,TOTAL 0.6 MG/DL (0.1-1.0)
[2020-09-09 07:04] LABS: ALKALINE PHOSPHATASE 96 U/L (40-136); CREATININE SERUM 0.74 MG/DL (0.60-1.30); GFR ESTIMATED > 60
[2020-09-09 07:06] LABS: BUN/CREATININE RATIO 8
[2020-09-09 07:07] LABS: ALANINE AMINOTRANSFERASE 33 U/L (0-55)
[2020-09-09 08:04] VITALS: BP 168/98
[2020-09-09] MEDS ORDERED: NIAC500T24 PEG (09:05)
[2020-09-09] MEDS ORDERED: CYAN-41 PEG (09:05)
[2020-09-09] MEDS ORDERED: ACET600C5 PEG (09:05)
[2020-09-09] MEDS ORDERED: THIA100T66 PEG (09:05)
[2020-09-09] MEDS ORDERED: INSU100I23 SQ (09:05)
[2020-09-09] MEDS ORDERED: DEMECLOCYCLINE PEG (09:05)
[2020-09-09] MEDS ORDERED: ACET325T49 PEG (09:05)
[2020-09-09] MEDS: VANCOMYCIN 1250 MG/NS 250 ML IVPB IV SCH ×4 (09:34→21:09)
[2020-09-09] MEDS: fentaNYL INJ 100 MCG/2 ML AMP IV SCH ×2 (09:34→21:07)
[2020-09-09] MEDS ORDERED: SCOPOLAMINE 1.5 MG (TRANSDERM-SCOP) PATCH TD NR (10:29)
[2020-09-09] MEDS ORDERED: RT-ALBUTEROL/IPRATROPIUM 3 ML (DUONEB) VIAL IH SCH (11:15)
[2020-09-09] MEDS ORDERED: NON-FORMULARY MEDICATION 1 EA EA (Cholecalciferol (Vitamin D3) (Vitamin D3) 1,250 MCG) PEG SCH (11:15)
--- NOTE | 2020-09-09 11:23 | Progress Note - Hospitalist ---
MARIAH BANKS MED STUDENT 09/09/20 1123: Subjective HPI/CC On Admission Date Seen by Provider: Sep 09, 2020 Time Seen by Provider: 08:00 This 55-year-old gentleman presents to the emergency room via [facility] the [facility] after a telehealth visit with a wound care provider. He has a deep sacral wound with concern for possible osteomyelitis. 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 He is nonverbal. He does respond some to stimuli but does not meaningfully communic ate. He has a tracheostomy and PEG tube. He also has necrotic decubitus ulcers on his heels. He had a stay at [facility] before being admitted to the [facility]. The wound care provider felt he needed assessment in the emergency room with possible admission for IV antibiotics and surgery. Upon my arrival family were not present and the patient noted to be in a persistent vegetative state does not orient to voice or follow commands. Does not appear to be in acute distress. Subjective/Events-last exam Pt sleeping. Pt stable. No change in medical status. Review of Systems ROS unobtainable due to tracheostomy and quadriplegia Focused Exam Lactate Level 09/06/20 17:42: Lactic Acid Level 1.64 Objective Exam Vital Signs Vital Signs Date Time Temp Pulse Resp B/P (MAP) Pulse Ox O2 Delivery O2 Flow Rate FiO2 09/09/20 11:17 99 Trach Collar 6.00 21 09/09/20 08:04 36.0 103 24 168/98 (121) Capillary Refill : Less Than 3 Seconds General Appearance: No Apparent Distress, Chronically ill Respiratory: Crackles, Decreased Breath Sounds, Other (tracheostomy ) Cardiovascular: Regular Rate, Rhythm, Normal Peripheral Pulses Gastrointestinal: Soft, Other (PEG tube ) Rectal: Deferred Extremity: Normal Capillary Refill, Other (decubitus ulcer over coccyx and b/l heels covered by dressings. ) Neurologic/Psychiatric: Other (quadriplegic) Results/Procedures Lab Laboratory Tests 09/09/20 06:39 Patient resulted labs reviewed. Assessment/Plan Assessment and Plan Assess & Plan/Chief Complaint Osteomyelitis Confirmed on 09/[address] IV zosyn, fluconazole, and vanc. start midline. Surgery following. Pt very poor surgical candidate, continue conservative management. b/l decubitus calcaneal ulcers neg for osteomyelitis on 09/06 xray. Wound care chronic UTI Urine culture grew yeast and klebsiella ABs and anti-fungal. Non-gap metabolic acidosis - 2/2 IV NaCl Conjunctivitis erythromycin ointment NIDDM SSI quadriplegic 2/2 massive CVA HTN restart home medications. Tube feeding. CHRISTY FRANKLIN DO 09/10/20 0527: Subjective Subjective/Events-last exam Chart reviewed Pt not responsive which is his baseline Catastrophic stroke in June caused longterm placement and contracture and now a decubitus ulcer Pt is paraplegic from the stroke Trach in place and peg tube in place Midline will be placed for IV antibiotics Dr. Moran consulted Wound care consulted WBC is now normal from 15,000 to 8.4 Bicarbonate is 15 Objective Exam General Appearance: Chronically ill, Other (sleeping) Respiratory: Decreased Breath Sounds Assessment/Plan Assessment and Plan Assess & Plan/Chief Complaint Continue supportive care IV abx Midline Home meds Trach and PEG care Diagnosis/Problems Diagnosis/Problems (1) Sepsis Status: Acute Qualifiers: Qualified Codes: A41.9 - Sepsis, unspecified organism (2) Decubitus ulcer, heel Status: Acute Qualifiers: Qualified Codes: L89.609 - Pressure ulcer of unspecified heel, unspecified stage (3) Hyponatremia Status: Acute (4) Paralytic syndrome, post-stroke Status: Acute Supervisory-Addendum Brief Verification & Attestation Participated in pt care: history, MDM, physical Personally performed: exam, history, MDM, supervision of care Care discussed with: Medical Student Procedures: n/a Results interpretation: Verified all documentation Verification and Attestation of Medical Student E/M Service A medical student performed and documented this service in my presence. I reviewed and verified all information documented by the medical student and made modifications to such information, when appropriate. I personally performed the physical exam and medical decision making. Christy Franklin, Sep 10, 2020,05:25 MARIAH BANKS MED STUDENT Sep 09, 2020 11:23 CHRISTY FRANKLIN DO Sep 10, 2020 05:27
[2020-09-09 11:56] VITALS: BP 139/91
[2020-09-09] MEDS: ACETAMINOPHEN 325 MG TABLET PEG SCH ×2 (12:24→21:07)
[2020-09-09] MEDS: WHEY PROTEIN ISOLATE PEG SCH ×4 (12:56→22:21)
[2020-09-09] MEDS: [UNRECOGNIZED DRUG - OTHER] PEG SCH ×2 (12:56→21:10)
[2020-09-09 15:44] VITALS: BP 142/81
[2020-09-09 15:49] VITALS: BP 142/81
--- NOTE | 2020-09-09 17:17 | Progress Note ---
Subjective Date Seen by a Provider: Sep 09, 2020 Time Seen by a Provider: 17:00 Subjective/Events-last exam patient stable. no change in clinical status. wet to dry dressing change BID. Focused Exam Lactate Level 09/06/20 17:42: Lactic Acid Level 1.64 Objective Exam Vital Signs Date Time Temp Pulse Resp B/P (MAP) Pulse Ox O2 Delivery O2 Flow Rate FiO2 09/09/20 15:49 36.7 96 94 21 09/09/20 15:44 36.7 96 24 142/81 (101) 94 Trach Collar 21.00 09/09/20 15:03 97 Trach Collar 6.00 21 09/09/20 13:00 93 09/09/20 11:56 36.4 98 22 139/91 (107) 94 Trach Collar 21.00 09/09/20 11:17 99 Trach Collar 6.00 21 09/09/20 08:41 95 Trach Collar 21 09/09/20 08:04 36.0 103 24 168/98 (121) 94 Trach Collar 21.00 09/09/20 07:38 98 Trach Collar 6.00 21 09/09/20 07:00 95 09/09/20 03:43 36.4 100 22 138/85 (102) 96 Trach Collar 21.00 09/09/20 02:53 98 Trach Collar 6.00 09/09/20 00:22 95 09/08/20 23:12 36.4 98 20 140/89 (106) 99 Trach Collar 21.00 09/08/20 22:18 100 Trach Collar 6.00 21 09/08/20 21:18 100 Trach Collar 21 09/08/20 19:30 36.0 102 32 138/81 (100) 99 Trach Collar 21.00 09/08/20 19:00 100 Trach Collar 6.00 21 09/08/20 19:00 99 I & O 09/09/20 07:00 Intake Total 2170 ml Output Total 1425 ml Balance 745 ml Capillary Refill : Less Than 3 Seconds General Appearance: No Apparent Distress Neck: Full Range of Motion Respiratory: Chest Non Tender, Decreased Breath Sounds Cardiovascular: Regular Rate, Rhythm Gastrointestinal: normal bowel sounds, non tender, soft Extremity: Normal Capillary Refill Skin: Normal Color Lymphatic: No Adenopathy Results Lab Laboratory Tests 09/08/20 20:44: Glucometer 128H 09/09/20 05:07: Glucometer 108 09/09/20 06:39: White Blood Count 8.4, Red Blood Count 2.88L, Hemoglobin 8.8L, Hematocrit 26L, Mean Corpuscular Volume 92, Mean Corpuscular Hemoglobin 31, Mean Corpuscular Hemoglobin Concent 33, Red Cell Distribution Width 14.0, Platelet Count 266, Mean Platelet Volume 9.1, Immature Granulocyte % (Auto) 1, Neutrophils (%) (Auto) 72, Lymphocytes (%) (Auto) 15, Monocytes (%) (Auto) 7, Eosinophils (%) (Auto) 5, Basophils (%) (Auto) 1, Neutrophils # (Auto) 6.1, Lymphocytes # (Auto) 1.2, Monocytes # (Auto) 0.6, Eosinophils # (Auto) 0.4H, Basophils # (Auto) 0.0, Immature Granulocyte # (Auto) 0.0, Sodium Level 141, Potassium Level 3.4L, Chloride Level 115H, Carbon Dioxide Level 15L, Anion Gap 11, Blood Urea Nitrogen 6L, Creatinine 0.74, Estimat Glomerular Filtration Rate > 60, BUN/Creatinine Ratio 8, Glucose Level 122H, Calcium Level 8.7, Corrected Calcium 9.8, Total Bilirubin 0.6, Aspartate Amino Transf (AST/SGOT) 22, Alanine Aminotransferase (ALT/SGPT) 33, Alkaline Phosphatase 96, Total Protein 5.9L, Albumin 2.6L 09/09/20 11:05: Glucometer 109 09/09/20 15:33: Glucometer 120H Microbiology 09/06/20 Blood Culture - Preliminary, Resulted No growth 09/06/20 Urine Culture - Final, Complete YEAST Klebsiella pneumoniae Assessment/Plan Assessment/Plan Assess & Plan/Chief Complaint sacral decubitus with osteomyelitis. wet to dry BID. IV abx. if family wants to pursue surgery would recommend tertiary center with plastic/ortho spine surgery however prognosis poor due to immobility CARMINE WHITE MD Sep 09, 2020 17:17
[2020-09-09 20:16] VITALS: BP 128/85
[2020-09-09] MEDS: FLUCONAZOLE 100 MG/50 ML 50 ML IV SCH (21:07)
[2020-09-09] MEDS: THIAMINE 100 MG (VITAMIN B-1) TAB PEG SCH (21:08)
[2020-09-09] MEDS: FAMOTIDINE 20 MG (PEPCID) TABLET PEG SCH (21:08)
[2020-09-09] MEDS: meTOprolol TARTRATE 50 MG (LOPRESSOR) TAB PEG SCH (21:08)
[2020-09-09] MEDS: DIMETHICONE TP SCH (21:09)
[2020-09-09] MEDS: ACETYLCYSTEINE 1200 MG PEG SCH (21:10)
[2020-09-09] MEDS: NON-FORMULARY MEDICATION 1 EA EA (Lactobacillus Acidophilus (Acidophilus) 1 EACH) PEG SCH (21:10)
[2020-09-09] MEDS: CAFFEINE 200 MG PEG SCH (21:10)
[2020-09-10] VITALS (7 sets, daily range): BP systolic 110–153; BP diastolic 64–95
[2020-09-10] MEDS: PIPERACILLIN/TAZO 4.5 GM/NS 100 ML IV SCH ×6 (01:56→17:53)
[2020-09-10] MEDS: WHEY PROTEIN ISOLATE PEG SCH ×6 (02:02→23:55)
[2020-09-10] MEDS: RT-ALBUTEROL/IPRATROPIUM 3 ML (DUONEB) VIAL INH SCH ×6 (02:50→20:58)
[2020-09-10] MEDS: ERYTHROMYCIN OPHTH OINT 1 GM (SINGLE USE) TUBE OD SCH ×3 (05:41→21:16)
[2020-09-10 06:23] LABS: BASOPHILS % (AUTO) 0 % (0-10); EOSINOPHILS # (AUTO) 0.5 10^3/uL (0.0-0.3); EOSINOPHILS % (AUTO) 5 % (0-10); HEMATOCRIT 27 % (40-54); LYMPHOCYTES # (AUTO) 1.2 10^3/uL (1.0-4.0); LYMPHOCYTES % (AUTO) 12 % (12-44); MEAN CORPUSCULAR HEMOGLOBIN 30 pg (25-34); MEAN CORPUSCULAR HGB CONC 34 g/dL (32-36); MEAN CORPUSCULAR VOLUME 91 fL (80-99); MEAN PLATELET VOLUME 9.4 fL (9.0-12.2); MONOCYTES # (AUTO) 0.8 10^3/uL (0.0-1.0); MONOCYTES % (AUTO) 8 % (0-12); NEUTROPHILS # (AUTO) 7.9 10^3/uL (1.8-7.8); NEUTROPHILS % (AUTO) 75 % (42-75); PLATELET COUNT 293 10^3/uL (130-400); WHITE BLOOD COUNT 10.5 10^3/uL (4.3-11.0)
[2020-09-10 06:36] LABS: ALBUMIN 2.6 GM/DL (3.2-4.5); CHLORIDE 116 MMOL/L (98-107); POTASSIUM 3.5 MMOL/L (3.6-5.0); SODIUM 144 MMOL/L (135-145)
[2020-09-10 06:37] LABS: CALCIUM 8.9 MG/DL (8.5-10.1)
[2020-09-10 06:38] LABS: GLUCOSE 106 MG/DL (70-105); TOTAL PROTEIN 5.9 GM/DL (6.4-8.2)
[2020-09-10 06:39] LABS: CARBON DIOXIDE 15 MMOL/L (21-32)
[2020-09-10] MEDS: inSUlin ASPART (NovoLOG) 1 UNIT/0.01 ML (CHARGE PER UNIT) SC SCH ×8 (06:39→21:21)
[2020-09-10 06:40] LABS: BILIRUBIN,TOTAL 0.6 MG/DL (0.1-1.0)
[2020-09-10 06:42] LABS: ALKALINE PHOSPHATASE 88 U/L (40-136); CREATININE SERUM 1.11 MG/DL (0.60-1.30); GFR ESTIMATED > 60
[2020-09-10 06:43] LABS: BUN/CREATININE RATIO 5
[2020-09-10 06:45] LABS: ALANINE AMINOTRANSFERASE 30 U/L (0-55)
[2020-09-10] MEDS: CYANOCOBALAMIN 1,000 MCG (VITAMIN B-12) TABLET PEG SCH (08:10)
[2020-09-10] MEDS: fentaNYL INJ 100 MCG/2 ML AMP IV SCH ×2 (08:10→20:33)
[2020-09-10] MEDS: meTOprolol TARTRATE 50 MG (LOPRESSOR) TAB PEG SCH ×2 (08:11→20:34)
[2020-09-10] MEDS: FAMOTIDINE 20 MG (PEPCID) TABLET PEG SCH ×2 (08:11→20:33)
[2020-09-10] MEDS: FOLIC ACID 1 MG TAB PEG SCH (08:11)
[2020-09-10] MEDS: HYDROcodone/APAP 5 MG/325 MG (LORTAB) TAB PEG SCH (08:11)
[2020-09-10] MEDS: amLODIPine 10 MG (NORVASC) TAB PEG SCH (08:11)
[2020-09-10] MEDS: THIAMINE 100 MG (VITAMIN B-1) TAB PEG SCH ×2 (08:12→20:33)
[2020-09-10] MEDS: ACETYLCYSTEINE 1200 MG PEG SCH ×2 (08:14→20:36)
[2020-09-10] MEDS: [UNRECOGNIZED DRUG - OTHER] PEG SCH ×3 (08:14→20:36)
[2020-09-10] MEDS: NIACINAMIDE PEG SCH (08:15)
[2020-09-10] MEDS: CAFFEINE 200 MG PEG SCH ×2 (08:15→20:36)
[2020-09-10] MEDS: NON-FORMULARY MEDICATION 1 EA EA (Lactobacillus Acidophilus (Acidophilus) 1 EACH) PEG SCH (08:15)
[2020-09-10] MEDS: OMEGA PEG SCH (08:16)
[2020-09-10] MEDS: FATTY ACIDS PEG SCH (08:16)
[2020-09-10] MEDS: UBIDECARENONE 200 MG PEG SCH (08:16)
[2020-09-10] MEDS: DIMETHICONE TP SCH ×2 (08:17→20:37)
[2020-09-10] MEDS: ACETAMINOPHEN 325 MG TABLET PEG SCH ×3 (08:17→20:33)
[2020-09-10] MEDS: VANCOMYCIN 1250 MG/NS 250 ML IVPB IV SCH ×4 (10:44→21:15)
--- NOTE | 2020-09-10 12:00 | Progress Note - Hospitalist ---
MARIAH BANKS MED STUDENT 09/10/20 1200: Subjective HPI/CC On Admission Date Seen by Provider: Sep 10, 2020 Time Seen by Provider: 08:15 This 55-year-old gentleman presents to the emergency room [facility] after a telehealth visit with a wound care provider. He has a deep sacral wound with concern for possible osteomyelitis. 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 He is nonverbal. He does respond some to stimuli but does not meaningfully communic ate. He has a tracheostomy and PEG tube. He also has necrotic decubitus ulcers on his heels. He had a stay at [place] [facility]. The wound care provider felt he needed assessment in the emergency room with possible admission for IV antibiotics and surgery. Upon my arrival family were not present and the patient noted to be in a persistent vegetative state does not orient to voice or follow commands. Does not appear to be in acute distress. Subjective/Events-last exam vital signs stable today. Status unchanged from yesterday. Review of Systems ROS unobtainable due to tracheostomy and quadriplegia Objective Exam Vital Signs Vital Signs Date Time Temp Pulse Resp B/P (MAP) Pulse Ox O2 Delivery O2 Flow Rate FiO2 09/10/20 10:16 96 Trach Collar 09/10/20 10:00 85 28 110/64 (78) 09/10/20 08:50 21 09/10/20 08:20 37.1 09/10/20 07:00 6.00 Capillary Refill : Less Than 3 Seconds General Appearance: No Apparent Distress, Chronically ill Respiratory: No Respiratory Distress, Crackles, Other (tracheostomy ) Cardiovascular: Regular Rate, Rhythm, Normal Peripheral Pulses Gastrointestinal: Soft, Other (colostomy ) Neurologic/Psychiatric: Motor Weakness, Sensory Deficit, Other (quadrapeligic ) Results/Procedures Lab Laboratory Tests 09/10/20 05:34 Patient resulted labs reviewed. Assessment/Plan Assessment and Plan Assess & Plan/Chief Complaint Osteomyelitis - 2/2 grade 4 sacral decubitus ulcer Confirmed on 09/[address] IV zosyn, fluconazole, and vanc. Surgery following. Pt very poor surgical candidate, continue conservative management. pts mother is POA - will be in later today to discuss care going further per ss note. b/l decubitus calcaneal ulcers neg for osteomyelitis on 09/06 xray. Wound care chronic UTI Urine culture grew yeast and klebsiella. ABs and anti-fungal. MARCIAL - creatinine up to 1.11 from 0.75 basline yesterday. Likely 2/2 vanc nephrotoxicity. Non-gap metabolic acidosis - 2/2 IV NaCl Conjunctivitis erythromycin ointment NIDDM SSI 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 Tube feeding. CHRISTY FRANKLIN DO 09/11/20 0621: Subjective Subjective/Events-last exam No major changes Creatinine stable at 1.1 CBC normal Midline maintained DPOA will be in this afternoon to discuss goals of care Decubitus ulcer evaluated, it is stage 4 and on his coccyx Objective Exam General Appearance: Chronically ill, Other (near comatose) Respiratory: Decreased Breath Sounds Assessment/Plan Assessment and Plan Assess & Plan/Chief Complaint IV abx long term acute care registered nurse care expectations? Supervisory-Addendum Brief Verification & Attestation Participated in pt care: history, MDM, physical Personally performed: exam, history, MDM, supervision of care Care discussed with: Medical Student Procedures: n/a Results interpretation: Verified all documentation Verification and Attestation of Medical Student E/M Service A medical student performed and documented this service in my presence. I reviewed and verified all information documented by the medical student and made modifications to such information, when appropriate. I personally performed the physical exam and medical decision making. Christy Franklin, Sep 11, 2020,06:19 MARIAH BANKS MED STUDENT Sep 10, 2020 12:00 CHRISTY FRANKLIN DO Sep 11, 2020 06:21
[2020-09-10] MEDS: FLUCONAZOLE 100 MG/50 ML 50 ML IV SCH (20:17)
[2020-09-10] MEDS: LACTOBACILLUS ACIDOPHILUS (PROBIOTIC) CAPSULE PEG SCH (20:34)
[2020-09-11] VITALS: BP 123/77
[2020-09-11] MEDS: RT-ALBUTEROL/IPRATROPIUM 3 ML (DUONEB) VIAL INH SCH ×6 (02:30→21:25)
[2020-09-11] MEDS: WHEY PROTEIN ISOLATE PEG SCH ×6 (03:36→22:47)
[2020-09-11 04:00] VITALS: BP 143/95
[2020-09-11] MEDS: inSUlin ASPART (NovoLOG) 1 UNIT/0.01 ML (CHARGE PER UNIT) SC SCH ×6 (05:16→20:33)
[2020-09-11] MEDS: ERYTHROMYCIN OPHTH OINT 1 GM (SINGLE USE) TUBE OD SCH ×2 (05:41→13:15)
[2020-09-11 05:42] LABS: BASOPHILS % (AUTO) 0 % (0-10); EOSINOPHILS # (AUTO) 0.9 10^3/uL (0.0-0.3); EOSINOPHILS % (AUTO) 7 % (0-10); HEMATOCRIT 29 % (40-54); HEMOGLOBIN 9.3 g/dL (13.3-17.7); LYMPHOCYTES # (AUTO) 1.4 10^3/uL (1.0-4.0); LYMPHOCYTES % (AUTO) 11 % (12-44); MEAN CORPUSCULAR HEMOGLOBIN 30 pg (25-34); MEAN CORPUSCULAR HGB CONC 32 g/dL (32-36); MEAN CORPUSCULAR VOLUME 93 fL (80-99); MEAN PLATELET VOLUME 9.2 fL (9.0-12.2); MONOCYTES # (AUTO) 0.7 10^3/uL (0.0-1.0); MONOCYTES % (AUTO) 5 % (0-12); NEUTROPHILS % (AUTO) 75 % (42-75); PLATELET COUNT 296 10^3/uL (130-400)
[2020-09-11 05:52] LABS: ALBUMIN 2.5 GM/DL (3.2-4.5); POTASSIUM 3.6 MMOL/L (3.6-5.0)
[2020-09-11 05:53] LABS: CALCIUM 8.6 MG/DL (8.5-10.1)
[2020-09-11 05:55] LABS: TOTAL PROTEIN 5.9 GM/DL (6.4-8.2)
[2020-09-11 05:57] LABS: BILIRUBIN,TOTAL 0.4 MG/DL (0.1-1.0)
[2020-09-11 05:58] LABS: CREATININE SERUM 2.39 MG/DL (0.60-1.30)
[2020-09-11] MEDS: NIACINAMIDE PEG SCH (07:10)
[2020-09-11] MEDS: [UNRECOGNIZED DRUG - OTHER] PEG SCH ×3 (07:10→20:34)
[2020-09-11] MEDS: CAFFEINE 200 MG PEG SCH ×2 (07:10→20:35)
[2020-09-11] MEDS: ACETYLCYSTEINE 1200 MG PEG SCH ×2 (07:10→20:34)
[2020-09-11] MEDS: OMEGA PEG SCH (07:11)
[2020-09-11] MEDS: FATTY ACIDS PEG SCH (07:11)
[2020-09-11] MEDS: UBIDECARENONE 200 MG PEG SCH (07:11)
[2020-09-11] MEDS: DIMETHICONE TP SCH ×2 (07:13→20:35)
[2020-09-11 07:15] VITALS: BP 123/80
[2020-09-11] MEDS: THIAMINE 100 MG (VITAMIN B-1) TAB PEG SCH ×2 (07:31→20:33)
[2020-09-11] MEDS: fentaNYL INJ 100 MCG/2 ML AMP IV SCH ×2 (07:31→20:34)
[2020-09-11] MEDS: FOLIC ACID 1 MG TAB PEG SCH (07:31)
[2020-09-11] MEDS: HYDROcodone/APAP 5 MG/325 MG (LORTAB) TAB PEG SCH (07:32)
[2020-09-11] MEDS: CYANOCOBALAMIN 1,000 MCG (VITAMIN B-12) TABLET PEG SCH (07:32)
[2020-09-11] MEDS: FAMOTIDINE 20 MG (PEPCID) TABLET PEG SCH (07:32)
[2020-09-11] MEDS: meTOprolol TARTRATE 50 MG (LOPRESSOR) TAB PEG SCH ×2 (07:32→20:33)
[2020-09-11] MEDS: LACTOBACILLUS ACIDOPHILUS (PROBIOTIC) CAPSULE PEG SCH ×2 (07:32→20:33)
[2020-09-11] MEDS: amLODIPine 10 MG (NORVASC) TAB PEG SCH (07:33)
[2020-09-11] MEDS: ACETAMINOPHEN 325 MG TABLET PEG SCH ×3 (07:33→20:32)
[2020-09-11] MEDS ORDERED: TROUGH ORDER-PHARMACY XX ONE (09:00)
[2020-09-11 11:15] VITALS: BP 108/83
--- NOTE | 2020-09-11 11:18 | Progress Note - Hospitalist ---
MARIAH BANKS MED STUDENT 09/11/20 1118: Subjective HPI/CC On Admission Date Seen by Provider: Sep 11, 2020 Time Seen by Provider: 08:50 This 55-year-old gentleman presents to the emergency room via EMS from the [facility] after a telehealth visit with a wound care provider. He has a deep sacral wound with concern for possible osteomyelitis. 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 He is nonverbal. He does respond some to stimuli but does not meaningfully communic ate. He has a tracheostomy and PEG tube. He also has necrotic decubitus ulcers on his heels. He had a stay at [place] before being admitted to the [facility]. The wound care provider felt he needed assessment in the emergency room with possible admission for IV antibiotics and surgery. Upon my arrival family were not present and the patient noted to be in a persistent vegetative state does not orient to voice or follow commands. Does not appear to be in acute distress. Subjective/Events-last exam vital signs stable today. Pt status stable. Pt creatinine up today to 2.4 from 1.1. Vanc trough 48.3 today. Pt to be transfered to gen/surg floor. Review of Systems ROS unobtainable due to tracheostomy and quadriplegia Objective Exam Vital Signs Vital Signs Date Time Temp Pulse Resp B/P (MAP) Pulse Ox O2 Delivery O2 Flow Rate FiO2 09/11/20 10:54 96 Room Air 6.00 09/11/20 09:08 21 09/11/20 07:15 35.9 86 30 123/80 (94) Capillary Refill : Less Than 3 Seconds General Appearance: No Apparent Distress, Chronically ill Neck: Normal Inspection Respiratory: No Accessory Muscle Use, No Respiratory Distress, Crackles Cardiovascular: Regular Rate, Rhythm, Normal Peripheral Pulses Gastrointestinal: Soft, Other (colostomy ) Neurologic/Psychiatric: No Alert, No Oriented x3; Motor Weakness, Sensory Deficit (quadrapelegic ), Other Results/Procedures Lab Laboratory Tests 09/11/20 05:30 Patient resulted labs reviewed. Assessment/Plan Assessment and Plan Assess & Plan/Chief Complaint Osteomyelitis - 2/2 grade 4 sacral decubitus ulcer Confirmed on 09/[address] Continue IV zosyn, and fluconazole. Hold vanc. Surgery following. Pt very poor surgical candidate, continue conservative management. per (09/10/20) ss note: family wants to continue full code status and treat to get back into [facility]. transfer pt to gen/surg 4th floor. ATN - likely due to vanc nephrotoxicity repeat vanc trough 48.3 today. creatinine up to 2.39 from 1.1. BUN/cr ratio of 5. Hold vanc. b/l decubitus calcaneal ulcers neg for osteomyelitis on 09/06 xray. Wound care metabolic acidosis - 2/2 IV NaCl Conjunctivitis erythromycin ointment NIDDM SSI chronic UTI 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 Tube feeding. CHRISTY FRANKLIN DO 09/12/20 0530: Subjective Subjective/Events-last exam Pt doing about the same Transferring to floor IV antibiotics maintained Mother assessed everything yesterday and the plan is to continue the current level of care, although he very much needs end of life care Pt does not appear to have any pain at this current time Objective Exam General Appearance: No Apparent Distress, Chronically ill Respiratory: Lungs Clear, Decreased Breath Sounds Cardiovascular: Regular Rate, Rhythm Neurologic/Psychiatric: Other (near comatose) Assessment/Plan Assessment and Plan Assess & Plan/Chief Complaint Ostemyelitis treatment Transfer to 4th floor Supervisory-Addendum Brief Verification & Attestation Participated in pt care: history, MDM, physical Personally performed: exam, history, MDM, supervision of care Care discussed with: Medical Student Procedures: n/a Results interpretation: Verified all documentation Verification and Attestation of Medical Student E/M Service A medical student performed and documented this service in my presence. I reviewed and verified all information documented by the medical student and made modifications to such information, when appropriate. I personally performed the physical exam and medical decision making. Christy Franklin, Sep 12, 2020,05:29 MARIAH BANKS MED STUDENT Sep 11, 2020 11:18 CHRISTY FRANKLIN DO Sep 12, 2020 05:30
[2020-09-11] MEDS: PIPERACILLIN/TAZO 4.5 GM/NS 100 ML IV SCH ×4 (13:15→22:43)
--- NOTE | 2020-09-11 13:26 | Physical Therapy Progress Note ---
Therapy Progress Note Order for PT eval received. Patient has severe contractures, is dependent for mobility, non-communicative, and cannot participate in physical therapy. Nurse and PT agree that patient would receive no benefit from physical therapy. ZOLTAN KENNEDY PT Sep 11, 2020 13:26
--- NOTE | 2020-09-11 14:24 | Occ Therapy Progress Note ---
Therapy Progress Note OT order received, chart reviewed. Consulted with PT regarding information gathered from nursing. Pt. currently in vegetative state from previous CVA. Pt. from NH with sacral wound and possible osteomyelitis. Pt. currently has PEG tube for nutrition. Multiple contractures noted, as well as poor ability to participate. No OT warranted at this time as no skilled need can be provided, that can't be provided by 24 hour nursing care. Thank you for this referral. [id number] VALERIANO SNYDER OT Sep 11, 2020 14:24
[2020-09-11 16:00] VITALS: BP 120/70
[2020-09-11] MEDS: FLUCONAZOLE 100 MG/50 ML 50 ML IV SCH (21:45)
[2020-09-11 23:24] VITALS: BP 132/79
[2020-09-12] VITALS (16 sets, daily range): BP systolic 103–168; BP diastolic 60–91
[2020-09-12] MEDS: RT-ALBUTEROL/IPRATROPIUM 3 ML (DUONEB) VIAL INH SCH ×6 (02:11→21:41)
[2020-09-12] MEDS: WHEY PROTEIN ISOLATE PEG SCH (02:36)
[2020-09-12 06:04] LABS: BASOPHILS % (AUTO) 0 % (0-10); EOSINOPHILS # (AUTO) 0.7 10^3/uL (0.0-0.3); EOSINOPHILS % (AUTO) 5 % (0-10); HEMATOCRIT 32 % (40-54); HEMOGLOBIN 10.5 g/dL (13.3-17.7); LYMPHOCYTES # (AUTO) 1.7 10^3/uL (1.0-4.0); LYMPHOCYTES % (AUTO) 12 % (12-44); MEAN CORPUSCULAR HEMOGLOBIN 30 pg (25-34); MEAN CORPUSCULAR HGB CONC 33 g/dL (32-36); MEAN CORPUSCULAR VOLUME 91 fL (80-99); MEAN PLATELET VOLUME 9.3 fL (9.0-12.2); MONOCYTES # (AUTO) 0.6 10^3/uL (0.0-1.0); MONOCYTES % (AUTO) 4 % (0-12); NEUTROPHILS # (AUTO) 11.2 10^3/uL (1.8-7.8); NEUTROPHILS % (AUTO) 78 % (42-75); PLATELET COUNT 341 10^3/uL (130-400); WHITE BLOOD COUNT 14.4 10^3/uL (4.3-11.0)
[2020-09-12] MEDS: inSUlin ASPART (NovoLOG) 1 UNIT/0.01 ML (CHARGE PER UNIT) SC SCH ×4 (06:04→21:33)
[2020-09-12] MEDS: PIPERACILLIN/TAZO 4.5 GM/NS 100 ML IV SCH ×6 (06:04→23:17)
[2020-09-12 06:19] LABS: ALBUMIN 2.7 GM/DL (3.2-4.5); POTASSIUM 4.1 MMOL/L (3.6-5.0)
[2020-09-12 06:20] LABS: CALCIUM 8.9 MG/DL (8.5-10.1)
[2020-09-12 06:21] LABS: TOTAL PROTEIN 6.3 GM/DL (6.4-8.2)
[2020-09-12 06:22] LABS: EOSINOPHILS % (MANUAL) 9 %; LYMPHOCYTES % (MANUAL) 9 %; MONOCYTES % (MANUAL) 1 %; NEUTROPHILS % (MANUAL) 81 %
[2020-09-12 06:23] LABS: BILIRUBIN,TOTAL 0.4 MG/DL (0.1-1.0); RBC MORPH NORMAL
[2020-09-12] MEDS: fentaNYL INJ 100 MCG/2 ML AMP IV SCH ×2 (09:36→20:14)
[2020-09-12] MEDS: ACETAMINOPHEN 325 MG TABLET PEG SCH ×3 (09:38→20:13)
[2020-09-12] MEDS: FOLIC ACID 1 MG TAB PEG SCH (09:38)
[2020-09-12] MEDS: LACTOBACILLUS ACIDOPHILUS (PROBIOTIC) CAPSULE PEG SCH ×2 (09:38→20:13)
[2020-09-12] MEDS: THIAMINE 100 MG (VITAMIN B-1) TAB PEG SCH ×2 (09:38→20:14)
[2020-09-12] MEDS: FAMOTIDINE 20 MG (PEPCID) TABLET PEG SCH (09:39)
[2020-09-12] MEDS: HYDROcodone/APAP 5 MG/325 MG (LORTAB) TAB PEG SCH (09:39)
[2020-09-12] MEDS: amLODIPine 10 MG (NORVASC) TAB PEG SCH (09:39)
[2020-09-12] MEDS: meTOprolol TARTRATE 50 MG (LOPRESSOR) TAB PEG SCH ×2 (09:39→20:14)
[2020-09-12 10:14] LABS: ABG BASE EXCESS -11.7 MMOL/L (-2.5-2.5); ABG OXYGEN SATURATION 95 % (94-100); ABG PCO2 24 MMHG (35-45); ABG PH 7.35 (7.37-7.43); ABG PO2 73 MMHG (79-93); ABG TCO2 13.6 MMOL/L (21.0-31.0)
[2020-09-12 10:19] LABS: ALLENS TEST POSITIVE; INSPIRED O2 21%; PATIENT TEMP 37.1; VENTILATOR NO
[2020-09-12] MEDS: CYANOCOBALAMIN 1,000 MCG (VITAMIN B-12) TABLET PEG SCH (11:18)
[2020-09-12] MEDS ORDERED: LACTATED RINGERS 1,000 ML IV SCH (11:45)
--- NOTE | 2020-09-12 11:54 | Diagnostic Imaging Report ---
Indication: Shortness of breath Portable chest 11:49 AM Patient has a tracheostomy tube. Heart size and pulmonary vascularity are normal. Lungs are clear. There are no effusions or pneumothoraces. IMPRESSION: No acute abnormalities in the chest Dictated by: Dictated on workstation # [id number]
[2020-09-12 12:16] LABS: BILIRUBIN,URINE NEGATIVE (NEGATIVE); CLARITY,URINE TURBID; COLOR,URINE YELLOW; GLUCOSE, URINE (UA) NEGATIVE (NEGATIVE); KETONES,URINE NEGATIVE (NEGATIVE); LEUKOCYTE ESTERASE ,URINE 2+ (NEGATIVE); NITRITE,URINE NEGATIVE (NEGATIVE); PH,URINE 5.5 (5-9); PROTEIN,URINE 1+ (NEGATIVE)
[2020-09-12 12:31] LABS: WBC,URINE >100 /HPF
[2020-09-12 12:32] LABS: AMORPHOUS SEDIMENT,UR FEW AMOR URATES /LPF; BACTERIA,URINE FEW /HPF; SQUAMOUS EPITHELIAL CELL,UR RARE /HPF; YEAST,URINE FEW /HPF
[2020-09-12] MEDS: LACTATED RINGERS 1,000 ML IV SCH ×4 (13:50→18:19)
[2020-09-12] MEDS: morphine INJ 10 MG/ML 1ML (SYR OR VIAL) IVP PRN (14:53)
--- NOTE | 2020-09-12 15:09 | Progress Note - Hospitalist ---
MARIAH BANKS MED STUDENT 09/12/20 1509: Subjective HPI/CC On Admission Date Seen by Provider: Sep 12, 2020 Time Seen by Provider: 09:50 This 55-year-old gentleman presents to the emergency room [facility] after a telehealth visit with a wound care provider. He has a deep sacral wound with concern for possible osteomyelitis. 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 He is nonverbal. He does respond some to stimuli but does not meaningfully communic ate. He has a tracheostomy and PEG tube. He also has necrotic decubitus ulcers on his heels. He had a stay at [place] before being [facility]. The wound care provider felt he needed assessment in the emergency room with possible admission for IV antibiotics and surgery. Upon my arrival family were not present and the patient noted to be in a persistent vegetative state does not orient to voice or follow commands. Does not appear to be in acute distress. Subjective/Events-last exam Pts respiratory status declined today during visit. Per nurse - pts RR is 55 and O2 sat is 85 on 6LPM. Respiratory decompensation was reported to Dr. Dougherty - pt moved to ICU and pulmonology consulted. Pt creatinine 3.00 today from 2.39 on repeat CMP today. Pts WBC climbing today - 14.4 from 12.0. Review of Systems General: Chills ROS unobtainable due to tracheostomy and quadriplegia Focused Exam Lactate Level 09/12/20 12:00: Lactic Acid Level 2.96*H 09/12/20 13:58: Lactic Acid Level 1.65 Lactic Acid Level Laboratory Tests Test 09/12/20 12:00 09/12/20 13:58 Lactic Acid Level 2.96 MMOL/L (0.50-2.00) *H 1.65 MMOL/L (0.50-2.00) Objective Exam Vital Signs Vital Signs Date Time Temp Pulse Resp B/P (MAP) Pulse Ox O2 Delivery O2 Flow Rate FiO2 09/12/20 14:20 100 Trach Collar 6.00 30 09/12/20 14:00 85 31 134/83 (100) 09/12/20 07:59 37.7 Capillary Refill : Less Than 3 Seconds General Appearance: No Apparent Distress, Chronically ill Neck: Normal Inspection Respiratory: Crackles, Decreased Breath Sounds, Respiratory Distress Cardiovascular: Normal Peripheral Pulses, Tachycardia Gastrointestinal: Soft, Other (colostomy ) Rectal: Deferred Neurologic/Psychiatric: Motor Weakness, Sensory Deficit Results/Procedures Lab Laboratory Tests 09/12/20 05:37 Patient resulted labs reviewed. Assessment/Plan Assessment and Plan Assess & Plan/Chief Complaint Respiratory Insufficency acute onset tachypnea, tachycardia, and O2 de-sat this morning. Possibly due to sepsis or PE. CXR today neg for acute abnormality lactic acidosis (3.0) Patient moved to ICU pulmonology consulted blood and urine cultures Osteomyelitis - 2/2 grade 4 sacral decubitus ulcer Confirmed on 09/[address] Continue IV zosyn Surgery following. Pt very poor surgical candidate, continue conservative management. ATN u/a shows granular casts. vanc nephrotoxicity likely main contributor. repeat vanc trough 48.3 yesterday. creatinine 3.00 today. b/l decubitus calcaneal ulcers neg for osteomyelitis on 09/06 xray. Wound care anion gap metabolic acidosis multifactorial - 2/2 lactic acidosis today and IV NS. NIDDM chronic UTI 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 Tube feeding. CHRISTY DOUGHERTY DO 09/13/20 0544: Subjective Subjective/Events-last exam Pt became tachypneic and tachycardiac at 55 and 127 respectively ABG showed acidosis of 7.3 Will transfer to the ICU, I did update Dr. Ivan Very difficult situation considering such severe poor prognosis Review of Systems Pulmonary: Dyspnea Objective Exam General Appearance: No Apparent Distress, WD/WN, Chronically ill Respiratory: Accessory Muscle Use, Crackles, Respiratory Distress Cardiovascular: Tachycardia Assessment/Plan Assessment and Plan Assess & Plan/Chief Complaint ICU transfer Monitor closely IV abx Supervisory-Addendum Brief Verification & Attestation Participated in pt care: history, MDM, physical Personally performed: exam, history, MDM, supervision of care Care discussed with: Medical Student Procedures: n/a Results interpretation: Verified all documentation Verification and Attestation of Medical Student E/M Service A medical student performed and documented this service in my presence. I reviewed and verified all information documented by the medical student and made modifications to such information, when appropriate. I personally performed the physical exam and medical decision making. Christy Dougherty, Sep 13, 2020,05:43 MARIAH BANKS MED STUDENT Sep 12, 2020 15:09 CHRISTY DOUGHERTY DO Sep 13, 2020 05:44
[2020-09-12] MEDS: FLUCONAZOLE 100 MG/50 ML 50 ML IV SCH (20:12)
[2020-09-13] VITALS (30 sets, daily range): BP systolic 91–141; BP diastolic 42–85
[2020-09-13] MEDS: RT-ALBUTEROL/IPRATROPIUM 3 ML (DUONEB) VIAL INH SCH ×6 (01:46→22:09)
[2020-09-13] MEDS: morphine INJ 10 MG/ML 1ML (SYR OR VIAL) IVP PRN (03:45)
[2020-09-13] MEDS: LACTATED RINGERS 1,000 ML IV SCH ×4 (03:46→17:47)
--- NOTE | 2020-09-13 04:14 | Pulmonary Consultation ---
History of Present Illness History of Present Illness Date Seen by Provider: Sep 13, 2020 Time Seen by Provider: 04:08 Date of Admission History of Present Illness 55yo presented to ED from [facility] after a telehealth visit with a wound care provider. He has a deep sacral wound with concern for possible osteomyelitis. 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 He is nonverbal. He does respond some to stimuli but does not meaningfully communicate. He has a tracheostomy and PEG tube. He also has necrotic decubitus ulcers on his heels. [facility] a stay at [place] [facility] The wound care provider felt he needed assessment in the emergency room with possible admission for IV antibiotics and surgery. Allergies and Home Medications Allergies Coded Allergies: No Known Drug Allergies (Unverified , 09/06/20) Home Medications Acetaminophen 325 Mg Tablet, 650 MG PEG TID, (Reported) Acetylcysteine 600 Mg Capsule, 1,200 MG PEG BID, (Reported) Amlodipine Besylate 10 Mg Tablet, 10 MG PEG DAILY, (Reported) HOLD IF SBP LESS THAN 100 Banana Flakes/Tos 1 Each Powd.pack, 1 EACH PEG TID, (Reported) Caffeine 200 Mg Tablet, 200 MG PEG BID, (Reported) Cholecalciferol (Vitamin D3) 1,250 Mcg Capsule, 1,250 MCG PEG FRI, (Reported) Cyanocobalamin (Vitamin B-12) 1,000 Mcg Tablet, 1,000 MCG PEG DAILY, (Reported) Dimethicone 118 Ml Cream.ml., 1 APPLIC TP BID, (Reported) APPLY TO BILATERAL GROIN Famotidine 20 Mg Tablet, 20 MG PEG BID, (Reported) Folic Acid 1 Mg Tablet, 4 MG PEG DAILY, (Reported) TAKES 1 (4MG) TABS Hydrocodone/Acetaminophen 1 Each Tablet, 2 TAB PEG DAILY, (Reported) GIVE 30MIN PRIOR TO DRESSING PAIN Insulin Lispro 100 Unit/1 Ml Insuln.pen, UNIT SQ QIDACHS, (Reported) 70-140=0 UNITS CALLS PHYSICIAN IF BS LESS THEN 70 141-180=2 UNITS 181-220=4 UNITS 221-260=6 UNITS 261-300=8 UNITS 301-340=10 UNITS 341-280=12 UNITS 281- 400=14 UNIT- CALL PHYSICAN IS BS GREATER THAN 400 Ipratropium/Albuterol Sulfate 3 Ml Ampul.neb, 3 ML IH Q6H, (Reported) Lactobacillus Acidophilus 1 Each Capsule, 1 EACH PEG BID, (Reported) Lactose-Reduced Food/Fiber 1,000 Ml Liquid, 60 ML PEG BID, (Reported) 60ML/HR TWO TIMES A DAY START AT 0600. STOP FEEDING AT 2200 Metoprolol Tartrate 50 Mg Tablet, 50 MG PEG BID, (Reported) HOLD FOR SBP LESS THAN 100 Niacinamide 500 Mg Tablet, 1,500 MG PEG DAILY, (Reported) TAKES 3 (500MG) TABS [place]-3 Fatty Acids 1,000 Mg Capsule, 3,000 MG PEG DAILY, (Reported) TAKES 3 (1000MG) CAPS Thiamine HCl 100 Mg Tablet, 200 MG PEG BID, (Reported) TAKES 2 (100MG) TABS Ubidecarenone 200 Mg Capsule, 200 MG PEG DAILY, (Reported) Whey Protein Isolate 1 Each Powd.pack, 1 EACH PEG Q4H, (Reported) [Demeclocycline] 300 TAB, 300 MG PEG BID, (Reported) Past Gdaohru-Rjnzvk-Oqhdkj Hx Past Med/Social Hx: Reviewed Nursing Past Med/Soc Hx Patient Social History Alcohol Use: Denies Use 2nd Hand Smoke Exposure: No Recent Infectious Disease Expo: No Recent Hopitalizations: Yes Immunizations Up To Date Tetanus Booster (TDap): Less than 5yrs PED Vaccines UTD: Yes Seasonal Allergies Seasonal Allergies: No Past Medical History Surgeries: Yes (PEG tube) Abdominal, Tracheostomy Respiratory: Yes (Chronic respiratory failure) Currently Using CPAP: No Currently Using BIPAP: No Cardiac: Yes Congenital Heart Disease, Hypertension Neurological: Yes (Dysphagia, aphasia) Seizure Disorder, Stroke Genitourinary: Yes UTI-Chronic Gastrointestinal: No Musculoskeletal: Yes Spasms, Contracture Endocrine: Yes Diabetes, Non-Insulin dep HEENT: Yes Chronic Eye Infection Cancer: No Psychosocial: No Integumentary: Yes Recent Skin Changes Blood Disorders: No Review of Systems Time Seen by Provider: 04:16 Sepsis Event Evaluation Height, Weight, BMI Height: '" Weight: lbs. oz. kg; 33.00 BMI Method: Exam Exam Vital Signs Date Time Temp Pulse Resp B/P (MAP) Pulse Ox O2 Delivery O2 Flow Rate FiO2 09/13/20 02:00 99 32 109/66 (80) 98 Trach Collar 6.00 30.00 09/13/20 01:47 96 Trach Collar 6.00 28 4/23/21 01:00 97 35 101/58 (72) 96 Trach Collar 6.00 30.00 09/13/20 01:00 100 09/13/20 00:00 83 35 136/82 (100) 97 Trach Collar 6.00 30.00 09/12/20 23:59 99 Trach Collar 30 09/12/20 23:00 80 32 121/73 (89) 99 Trach Collar 6.00 30.00 09/12/20 22:00 88 31 130/83 (99) 99 Trach Collar 6.00 30.00 09/12/20 21:42 99 Trach Collar 6.00 30 09/12/20 21:00 91 32 134/83 (100) 99 Trach Collar 6.00 30.00 09/12/20 20:00 96 32 167/85 (112) 96 Trach Collar 6.00 30.00 09/12/20 20:00 99 Trach Collar 30 09/12/20 19:55 35.6 09/12/20 19:00 102 33 168/90 (116) 96 Trach Collar 6.00 30.00 09/12/20 19:00 100 09/12/20 18:25 98 Trach Collar 6.00 30 09/12/20 18:00 99 31 148/91 (110) 99 Trach Collar 6.00 30.00 09/12/20 17:00 98 34 153/89 (110) 99 Trach Collar 6.00 30.00 09/12/20 16:37 99 Trach Collar 30 09/12/20 16:00 98 37 136/85 (102) 99 Trach Collar 6.00 30.00 09/12/20 15:00 105 38 103/65 (78) 100 Trach Collar 6.00 30.00 09/12/20 14:20 100 Trach Collar 6.00 30 09/12/20 14:00 85 31 134/83 (100) 100 Trach Collar 6.00 30.00 09/12/20 13:00 84 30 128/78 (95) 99 Trach Collar 6.00 30.00 09/12/20 12:59 85 09/12/20 12:00 98 Trach Collar 30 09/12/20 12:00 92 37 106/71 (83) 99 Trach Collar 6.00 30.00 09/12/20 11:11 98 09/12/20 11:00 100 50 142/85 (104) 85 Trach Collar 6.00 30.00 09/12/20 09:40 95 Trach Collar 6.00 21 09/12/20 09:36 127 129/89 (102) 95 Trach Collar 6.00 09/12/20 08:00 97 Trach Collar 21 09/12/20 07:59 37.7 105 24 126/60 (82) 94 Trach Collar 6.00 09/12/20 06:38 92 Trach Collar 6.00 09/12/20 04:27 35.8 94 24 142/84 (103) 95 Trach Collar 6.00 I & O 09/13/20 07:00 Intake Total 2470 ml Output Total 725 ml Balance 1745 ml Height & Weight Height: '" Weight: lbs. oz. kg; 33.00 BMI Method: General Appearance: Chronically ill, Moderate Distress HEENT: Other (Mucous membranes moist. Purulent drainage from the right eye with a filmy appearance to the eye surface and slight injection of erythema.) Neck: Normal Inspection Respiratory: Crackles, Decreased Breath Sounds, Respiratory Distress Cardiovascular: Normal Peripheral Pulses, Tachycardia Capillary Refill: Less Than 3 Seconds Gastrointestinal: normal bowel sounds, non tender, soft Extremity: Normal Inspection, No Pedal Edema Neurologic/Psychiatric: Motor Weakness, Sensory Deficit Skin: Warm/Dry, Other (Necrotic decubitus ulcers on both heels. Very deep sac ral wound.) Lymphatic: No Adenopathy Results Lab Laboratory Tests 09/11/20 05:30 09/12/20 05:37 Assessment/Plan Assessment/Plan Chronic respiratory failure with chronic tracheostomy -Pt has increased WOB -Check ABG -Give 2 amps of Bicarb -Frequent suctioning -Admitted 09/06 -Currently requiring 2 liters of oxygen -Labs pending -Repeat ABG Sepsis -Continue zosyn and change vanco to zyvox -Aviles cultures pending Metabolic lactic acidosis - improving -IVF -Monitor Osteomyelitis - 2/2 grade 4 sacral decubitus ulcer Continue IV zosyn surgery following ATN Change Vanco to Zyvox Labs pending -May need to transfer for nephrology b/l decubitus calcaneal ulcers neg for osteomyelitis on 09/06 xray. Wound care anion gap metabolic acidosis multifactorial - 2/2 lactic acidosis today and IV NS. NIDDM chronic UTI 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 Tube feeding. UPDATE: Pt continued to have worsening respiratory distress with accessory muscle use. Pt also became bradycardic with respiratory distress. Crash cart brought to bedside. Pt placed on ventilator. tracheostomy tube changed to cuffed tube. Tube was changed without difficulty. Pt has bilateral BS equally. Pt is getting return tidal volumes on ventilator. CXR and ABG are pending. I called and updated family on pt's current condition and answered all questions to the best of my ability. TREY FIELDS DO Sep 13, 2020 04:14
[2020-09-13 04:54] LABS: BASOPHILS % (AUTO) 0 % (0-10); EOSINOPHILS % (AUTO) 5 % (0-10); HEMATOCRIT 30 % (40-54); HEMOGLOBIN 9.6 g/dL (13.3-17.7); LYMPHOCYTES # (AUTO) 2.3 10^3/uL (1.0-4.0); LYMPHOCYTES % (AUTO) 11 % (12-44); MEAN CORPUSCULAR HEMOGLOBIN 30 pg (25-34); MEAN CORPUSCULAR HGB CONC 32 g/dL (32-36); MEAN CORPUSCULAR VOLUME 94 fL (80-99); MEAN PLATELET VOLUME 9.3 fL (9.0-12.2); MONOCYTES # (AUTO) 0.8 10^3/uL (0.0-1.0); MONOCYTES % (AUTO) 4 % (0-12); NEUTROPHILS # (AUTO) 17.1 10^3/uL (1.8-7.8); NEUTROPHILS % (AUTO) 80 % (42-75); PLATELET COUNT 314 10^3/uL (130-400); WHITE BLOOD COUNT 21.4 10^3/uL (4.3-11.0)
[2020-09-13 04:58] LABS: POTASSIUM 4.1 MMOL/L (3.6-5.0)
[2020-09-13 04:59] LABS: CALCIUM 8.7 MG/DL (8.5-10.1)
[2020-09-13 05:03] LABS: PHOSPHORUS 5.5 MG/DL (2.3-4.7)
[2020-09-13 05:04] LABS: CREATININE SERUM 3.33 MG/DL (0.60-1.30)
[2020-09-13 05:06] LABS: MAGNESIUM 1.5 MG/DL (1.6-2.4)
[2020-09-13] MEDS: POTASSIUM CL 10MEQ/50ML IVPB 50 ML IV SCH (05:12)
[2020-09-13] MEDS: MAGNESIUM 1 GM/100 ML IVPB 100 ML IV SCH ×3 (05:13→09:20)
[2020-09-13] MEDS: inSUlin ASPART (NovoLOG) 1 UNIT/0.01 ML (CHARGE PER UNIT) SC SCH ×3 (05:13→17:42)
[2020-09-13] MEDS: KCL 20 MEQ TAB (K-DUR) PO SCH (05:13)
[2020-09-13] MEDS ORDERED: HYDROmorphone 2 MG/ML VIAL (DILAUDID) ONE (05:22)
[2020-09-13] MEDS ORDERED: HYDROmorphone 2 MG/ML VIAL (DILAUDID) IV ONE (05:30)
[2020-09-13] MEDS ORDERED: SODIUM BICARB 8.4% 50 MEQ/50 ML VIAL ONE (05:35)
[2020-09-13] MEDS ORDERED: SODIUM BICARB 8.4% 50 MEQ/50 ML VIAL IV ONE (05:45)
[2020-09-13] MEDS ORDERED: fentaNYL DRIP PRE-MIX 250 ML IV ONE (06:00)
[2020-09-13] MEDS ORDERED: LACTATED RINGERS 1,000 ML IV SCH (06:00)
[2020-09-13] MEDS ORDERED: PROPOFOL DRIP (ICU) 100 ML IV ONE (06:00)
[2020-09-13] MEDS: PIPERACILLIN/TAZO 4.5 GM/NS 100 ML IV SCH ×6 (06:05→22:30)
--- NOTE | 2020-09-13 06:27 | Diagnostic Imaging Report ---
INDICATION: Respiratory distress. Portable chest 3:34 AM FINDINGS: Patient has tracheostomy tube. Heart size and pulmonary vascularity are normal. There are no infiltrates, effusions or pneumothoraces. IMPRESSION: No acute abnormalities in the chest. No change compared to previous day. Dictated by: Dictated on workstation # [id number]
[2020-09-13] MEDS ORDERED: NS IV 1000 ML 1,000 ML ONE (06:37)
[2020-09-13] MEDS ORDERED: NS IV 1000 ML 1,000 ML IV SCH (06:45)
[2020-09-13] MEDS: PROPOFOL DRIP (ICU) 100 ML IV SCH ×3 (06:50→17:14)
[2020-09-13] MEDS: fentaNYL DRIP PRE-MIX 250 ML IV SCH ×2 (06:51→23:58)
--- NOTE | 2020-09-13 06:51 | Diagnostic Imaging Report ---
CHEST 1 VIEW, AP/PA ONLY Indication: Exchange of tracheostomy, intubation Comparison: 09/13/2020 at 3:34 AM Findings: The new tracheostomy tube has tip 7 cm above the benoit. Lungs are clear. Posterior lower lobes are poorly visualized by portable radiography. No pleural effusion or pneumothorax. Normal cardiomediastinal silhouette. Impression: 1. The new tracheostomy tube has tip 7 cm above the benoit. 2. No complication appreciated by radiography. Dictated by: Dictated on workstation # [id number]
[2020-09-13 07:26] LABS: ABG BASE EXCESS -7.7 MMOL/L (-2.5-2.5); ABG OXYGEN SATURATION 57 % (94-100); ABG PCO2 41 MMHG (35-45); ABG TCO2 19.4 MMOL/L (21.0-31.0)
[2020-09-13 07:29] LABS: ABG PH 7.26 (7.37-7.43); ABG PO2 36 MMHG (79-93); ALLENS TEST POSITIVE
[2020-09-13 07:30] LABS: INSPIRED O2 50%; PATIENT TEMP 97.9; VENTILATOR YES
[2020-09-13] MEDS ORDERED: SODIUM BICARB 8.4% 50 MEQ/50 ML (ABBOTT) SYR IV ONE (08:00)
[2020-09-13] MEDS: FOLIC ACID 1 MG TAB PEG SCH (09:20)
[2020-09-13] MEDS: HYDROcodone/APAP 5 MG/325 MG (LORTAB) TAB PEG SCH (09:20)
[2020-09-13] MEDS: LACTOBACILLUS ACIDOPHILUS (PROBIOTIC) CAPSULE PEG SCH ×2 (09:20→19:41)
[2020-09-13] MEDS: FAMOTIDINE 20 MG (PEPCID) TABLET PEG SCH (09:21)
[2020-09-13] MEDS: THIAMINE 100 MG (VITAMIN B-1) TAB PEG SCH ×2 (09:21→19:41)
[2020-09-13] MEDS: CYANOCOBALAMIN 1,000 MCG (VITAMIN B-12) TABLET PEG SCH (09:21)
[2020-09-13] MEDS: LINEZOLID IVPB 300 ML IV SCH ×2 (09:21→19:51)
[2020-09-13] MEDS: amLODIPine 10 MG (NORVASC) TAB PEG SCH (09:22)
[2020-09-13] MEDS: meTOprolol TARTRATE 50 MG (LOPRESSOR) TAB PEG SCH ×2 (09:22→19:41)
[2020-09-13] MEDS: fentaNYL INJ 100 MCG/2 ML AMP IV SCH ×2 (09:23→19:42)
[2020-09-13] MEDS: ACETAMINOPHEN 325 MG TABLET PEG SCH ×3 (09:23→19:41)
[2020-09-13 09:56] LABS: ABG BASE EXCESS -5.5 MMOL/L (-2.5-2.5); ABG OXYGEN SATURATION 99 % (94-100); ABG PCO2 35 MMHG (35-45); ABG PH 7.35 (7.37-7.43); ABG PO2 139 MMHG (79-93); ABG TCO2 20.2 MMOL/L (21.0-31.0)
[2020-09-13 09:57] LABS: ALLENS TEST YES-POS; INSPIRED O2 50%; PATIENT TEMP 36.6; VENTILATOR YES
--- NOTE | 2020-09-13 12:51 | Progress Note - Hospitalist ---
MARIAH BANKS MED STUDENT 09/13/20 1251: Subjective HPI/CC On Admission Date Seen by Provider: Sep 13, 2020 Time Seen by Provider: 10:20 This 55-year-old gentleman presents to the emergency room via EMS from the half-way after a telehealth visit with a wound care provider. He has a deep sacral wound with concern for possible osteomyelitis. 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 He is nonverbal. He does respond some to stimuli but does not meaningfully communic ate. He has a tracheostomy and PEG tube. He also has necrotic decubitus ulcers on his heels. He had a stay at [facility] before being admitted to the half-way. The wound care provider felt he needed assessment in the emergency room with possible admission for IV antibiotics and surgery. Upon my arrival family were not present and the patient noted to be in a persistent vegetative state does not orient to voice or follow commands. Does not appear to be in acute distress. Subjective/Events-last exam pt VS and resp status decompensated this morning, placed on vent. Resp status stable during visit later this morning. Family in room with patient to discuss care moving forward. After discussion about pts status, family want to continue current level of care. SS consulted for request to transfer pt to [facility]. Review of Systems ROS unobtainable due to tracheostomy and quadriplegia Focused Exam Lactate Level 09/12/20 12:00: Lactic Acid Level 2.96*H 09/12/20 13:58: Lactic Acid Level 1.65 Objective Exam Vital Signs Vital Signs Date Time Temp Pulse Resp B/P (MAP) Pulse Ox O2 Delivery O2 Flow Rate FiO2 09/13/20 12:43 104 09/13/20 12:00 25 133/79 (97) 100 Mechanical Ventilator 50.00 09/13/20 11:38 36.9 09/13/20 09:48 40 Capillary Refill : Less Than 3 Seconds General Appearance: WD/WN, Chronically ill Respiratory: Crackles, Decreased Breath Sounds, Other (on ventilator ) Cardiovascular: Regular Rate, Rhythm, Normal Peripheral Pulses Gastrointestinal: Soft Rectal: Deferred Neurologic/Psychiatric: Aphasia, Motor Weakness, Sensory Deficit, Other (quadrapelegic ) Results/Procedures Lab Laboratory Tests 09/13/20 04:10 Patient resulted labs reviewed. Assessment/Plan Assessment and Plan Assess & Plan/Chief Complaint acute on chronic respiratory failure possibly exacerbated by sepsis. pt placed on ventilator this morning. Current vent setting while in room: RR26, Vt 400, PEEP 5, 50%O2. Repeat CXR today was without acute changes - tracheostomy tube above ben[place]. Repeat ABGs Surgery consulted for central line placement. Dr. Franklin discussed patients care moving forward with family. Family wants to continue current level of care. SS consulted for patient transfer to [facility]. Sepsis WBC up to 21.4 today from 14.4 yesterday. lactic acidosis resolved yesterday. horvath cultures pending. IV linezolid, zosyn and fluconazole. Osteomyelitis - 2/2 grade 4 sacral decubitus ulcer Confirmed on 09/[address] Continue IV ABs Surgery following. Pt very poor surgical candidate. ATN u/a showed granular casts. vanc nephrotoxicity likely main contributor. Linezolid added to replace vanc. creatinine 3.33 today from 3.00 b/l decubitus calcaneal ulcers neg for osteomyelitis on 09/06 xray. Wound care non-compensated anion gap metabolic acidosis multifactorial - 2/2 IV NS, hypernatremia, and elevated lactic acid levels. IV NaBicarb. NIDDM chronic UTI 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 Tube feeding. CHRISTY FRANKLIN DO 09/14/20 0712: Subjective Subjective/Events-last exam In-depth conversation with mother, sister, and brother in counseling room Updated on prognosis JACINTA Leong with me After conversation they decided to stay the course even though prognosis is poor Futility noted Objective Exam General Appearance: No Apparent Distress, Chronically ill, Other (on vent) Respiratory: Decreased Breath Sounds Cardiovascular: Regular Rate, Rhythm Assessment/Plan Assessment and Plan Assess & Plan/Chief Complaint Prognosis poor Updated family in face to face meeting Futility assessed Supervisory-Addendum Brief Verification & Attestation Participated in pt care: history, MDM, physical Personally performed: exam, history, MDM, supervision of care Care discussed with: Medical Student Procedures: n/a Results interpretation: Verified all documentation Verification and Attestation of Medical Student E/M Service A medical student performed and documented this service in my presence. I reviewed and verified all information documented by the medical student and made modifications to such information, when appropriate. I personally performed the physical exam and medical decision making. Christy Franklin, Sep 14, 2020,07:10 MARIAH BANKS MED STUDENT Sep 13, 2020 12:51 CHRISTY FRANKLIN DO Sep 14, 2020 07:12
--- NOTE | 2020-09-13 13:56 | Diagnostic Imaging Report ---
INDICATION: Central venous catheter assessment Portable AP view of the chest is obtained. Comparison is made study of earlier in the day. There has been placement of right subclavian central venous catheter which crosses the midline to the left likely within left brachiocephalic vein. There may be mild increase in right basilar atelectasis and/or pneumonitis. No pneumothorax is seen. Tracheostomy tube is in place with tip at the level of thoracic inlet. IMPRESSION: Right subclavian catheter crosses the midline with tip appearing to reside in the proximal left brachiocephalic vein. Dictated by: Dictated on workstation # [id number]
[2020-09-13] MEDS: HYDROcodone/APAP 5 MG/325 MG (LORTAB) TAB PO PRN ×2 (14:19→17:31)
--- NOTE | 2020-09-13 17:34 | OPERATIVE REPORT ---
DATE OF SERVICE: 09/13/2020 PREPROCEDURE DIAGNOSES: Sacral decubitus ulcer, osteomyelitis and septic shock. POSTPROCEDURE DIAGNOSES: Sacral decubitus ulcer, osteomyelitis and septic shock. PROCEDURE: Placement of right subclavian central venous catheter. SURGEON: Carmine White MD ANESTHESIA: Local. ESTIMATED BLOOD LOSS: Minimal. DISPOSITION: The patient tolerated the procedure well. INDICATIONS: The patient is a 55-year-old male who suffered a massive stroke causing quadriplegia as well as loss of speech and majority of cognitive ability. He was seen by wound nursing at his extended care facility. The recommendation was to proceed with conservative management. The family wanted to proceed with further testing and eventually CT scan was performed, which did show osteomyelitis. They wanted to proceed with IV antibiotics. Since that time, he has worsened and has become hypotensive, likely secondary to septic shock. DESCRIPTION OF PROCEDURE: The chest and neck were prepped and draped in standard surgical fashion. A 1% lidocaine was used to anesthetize the right subclavian region. The right subclavian vein was then cannulated with drawing of venous blood. The guidewire was then inserted without any resistance. The cannulating needle removed and a skin incision made using 11 blade. A tract was then created using a venous dilator and through this opening, a triple lumen central venous catheter was placed over the guidewire using the Seldinger technique. Guidewire was removed and all three ports jamal venous blood and saline pushed in without any resistance. The catheter was then sutured to the skin using 3-0 nylon interrupted sutures. Skin was then cleaned and covered with Op-Site. The patient tolerated the procedure well. We will get post-procedure chest x-ray. Job ID: [id number] DocumentID: [id number] Dictated Date: 09/13/2020 13:34:39 Staff Nuclear Weapons Officer Date: 09/13/2020 17:33:21 Dictated By: CARMINE WHITE MD
[2020-09-13] MEDS: FLUCONAZOLE 100 MG/50 ML 50 ML IV SCH (19:52)
[2020-09-14] VITALS (28 sets, daily range): BP systolic 91–147; BP diastolic 53–81
[2020-09-14] MEDS: LACTATED RINGERS 1,000 ML IV SCH ×4 (00:37→20:56)
[2020-09-14] MEDS: inSUlin ASPART (NovoLOG) 1 UNIT/0.01 ML (CHARGE PER UNIT) SC SCH ×5 (00:38→23:57)
[2020-09-14] MEDS: RT-ALBUTEROL/IPRATROPIUM 3 ML (DUONEB) VIAL INH SCH ×6 (02:07→22:06)
[2020-09-14] MEDS: PROPOFOL DRIP (ICU) 100 ML IV SCH ×4 (03:27→23:57)
[2020-09-14 04:07] LABS: ABG BASE EXCESS -5.1 MMOL/L (-2.5-2.5); ABG OXYGEN SATURATION 97 % (94-100); ABG PCO2 34 MMHG (35-45); ABG PH 7.37 (7.37-7.43); ABG PO2 86 MMHG (79-93); ABG TCO2 20.3 MMOL/L (21.0-31.0); ALLENS TEST YES-POS; INSPIRED O2 28%; PATIENT TEMP 37.1; VENTILATOR YES
[2020-09-14 04:08] LABS: BASOPHILS % (AUTO) 0 % (0-10); EOSINOPHILS # (AUTO) 0.7 10^3/uL (0.0-0.3); EOSINOPHILS % (AUTO) 6 % (0-10); HEMATOCRIT 26 % (40-54); HEMOGLOBIN 8.6 g/dL (13.3-17.7); LYMPHOCYTES # (AUTO) 2.4 10^3/uL (1.0-4.0); LYMPHOCYTES % (AUTO) 21 % (12-44); MEAN CORPUSCULAR HEMOGLOBIN 30 pg (25-34); MEAN CORPUSCULAR HGB CONC 33 g/dL (32-36); MEAN CORPUSCULAR VOLUME 92 fL (80-99); MEAN PLATELET VOLUME 9.1 fL (9.0-12.2); MONOCYTES # (AUTO) 0.5 10^3/uL (0.0-1.0); MONOCYTES % (AUTO) 5 % (0-12); NEUTROPHILS # (AUTO) 7.8 10^3/uL (1.8-7.8); NEUTROPHILS % (AUTO) 68 % (42-75); PLATELET COUNT 234 10^3/uL (130-400); WHITE BLOOD COUNT 11.4 10^3/uL (4.3-11.0)
[2020-09-14 04:25] LABS: CALCIUM 7.8 MG/DL (8.5-10.1); CREATININE SERUM 3.01 MG/DL (0.60-1.30); MAGNESIUM 1.5 MG/DL (1.6-2.4); PHOSPHORUS 4.9 MG/DL (2.3-4.7); POTASSIUM 3.3 MMOL/L (3.6-5.0)
[2020-09-14] MEDS: MAGNESIUM 1 GM/100 ML IVPB 100 ML IV SCH ×3 (04:27→05:34)
[2020-09-14] MEDS: KCL 20 MEQ TAB (K-DUR) PO SCH (04:27)
[2020-09-14] MEDS: POTASSIUM CL 10MEQ/50ML IVPB 50 ML IV SCH ×5 (04:27→07:39)
[2020-09-14] MEDS: PIPERACILLIN/TAZO 4.5 GM/NS 100 ML IV SCH ×6 (05:35→21:00)
[2020-09-14] MEDS: meTOprolol TARTRATE 50 MG (LOPRESSOR) TAB PEG SCH ×2 (07:18→21:00)
[2020-09-14] MEDS: amLODIPine 10 MG (NORVASC) TAB PEG SCH (07:18)
--- NOTE | 2020-09-14 07:52 | Diagnostic Imaging Report ---
EXAMINATION: Chest 1 view HISTORY: Respiratory distress COMPARISON: 09/13/2020 FINDINGS: Tracheostomy device is present. Lung volumes are small. There is a small left pleural effusion versus atelectasis. No pneumothorax. Heart size is normal. IMPRESSION: 1. Small volumes with small left pleural effusion versus atelectasis. Dictated by: Dictated on workstation # [id number]
[2020-09-14] MEDS: HYDROcodone/APAP 5 MG/325 MG (LORTAB) TAB PEG SCH (08:35)
[2020-09-14] MEDS: fentaNYL INJ 100 MCG/2 ML AMP IV SCH ×2 (08:35→20:43)
[2020-09-14] MEDS: LACTOBACILLUS ACIDOPHILUS (PROBIOTIC) CAPSULE PEG SCH ×2 (09:05→20:54)
[2020-09-14] MEDS: LINEZOLID IVPB 300 ML IV SCH ×2 (09:05→20:56)
[2020-09-14] MEDS: THIAMINE 100 MG (VITAMIN B-1) TAB PEG SCH ×2 (09:05→21:00)
[2020-09-14] MEDS: FAMOTIDINE 20 MG (PEPCID) TABLET PEG SCH (09:06)
[2020-09-14] MEDS: FOLIC ACID 1 MG TAB PEG SCH (09:06)
[2020-09-14] MEDS: ACETAMINOPHEN 325 MG TABLET PEG SCH ×3 (09:06→21:00)
[2020-09-14] MEDS: CYANOCOBALAMIN 1,000 MCG (VITAMIN B-12) TABLET PEG SCH (09:06)
[2020-09-14] MEDS: fentaNYL DRIP PRE-MIX 250 ML IV SCH ×2 (10:23→20:55)
--- NOTE | 2020-09-14 11:42 | Progress Note - Hospitalist ---
Subjective HPI/CC On Admission Date Seen by Provider: Sep 14, 2020 Time Seen by Provider: 11:30 This 55-year-old gentleman presents to the emergency room via EMS from [facility] after a telehealth visit with a wound care provider. He has a deep sacral wound with concern for possible osteomyelitis. 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 He is nonverbal. He does respond some to stimuli but does not meaningfully communicate. He has a tracheostomy and PEG tube. He also has necrotic decubitus ulcers on his heels. He had a stay at [facility] before being admitted to the [facility]. The wound care provider felt he needed assessment in the emergency room with possible admission for IV antibiotics and surgery. Upon my arrival family were not present and the patient noted to be in a persistent vegetative state does not orient to voice or follow commands. Does not appear to be in acute distress. Subjective/Events-last exam Patient about the same Positioning patient causes bradycardia No pain reported Rash noted so will start Kenalog cream BID after cleansing Creat 3.0 Checked meds and labs Family not interested in [facility] since he has been there before Ethics consult likely will be needed for this case Focused Exam Lactate Level 09/12/20 12:00: Lactic Acid Level 2.96*H 09/12/20 13:58: Lactic Acid Level 1.65 Objective Exam Vital Signs Vital Signs Date Time Temp Pulse Resp B/P (MAP) Pulse Ox O2 Delivery O2 Flow Rate FiO2 09/14/20 19:00 37.1 101 25 104/65 (78) 95 Mechanical Ventilator 28.00 09/14/20 18:28 21 Capillary Refill : Less Than 3 Seconds General Appearance: No Apparent Distress, Chronically ill, Other (comatose) Respiratory: Lungs Clear Cardiovascular: Regular Rate, Rhythm Results/Procedures Lab Laboratory Tests 09/14/20 03:55 Patient resulted labs reviewed. Assessment/Plan Assessment and Plan Assess & Plan/Chief Complaint Assessment: VDRF Catastrophic CVA 07/14 Contractures Decubitus ulcer stage IV with osteomyelitis Prognosis poor Updated family in face to face meeting yesterday but no changes requested per family Futility assessed Diagnosis/Problems Diagnosis/Problems (1) Sepsis Status: Acute Qualifiers: Sepsis type: sepsis due to unspecified organism Sepsis acute organ dysfunction status: unspecified Qualified Codes: A41.9 - Sepsis, unspecified organism (2) Decubitus ulcer, heel Status: Acute Qualifiers: Pressure injury stage: unspecified pressure injury stage Laterality: unspecified laterality Qualified Codes: L89.609 - Pressure ulcer of unspecified heel, unspecified stage (3) Hyponatremia Status: Acute (4) Paralytic syndrome, post-stroke Status: Acute MARI FRANKLIN DO Sep 14, 2020 11:42
[2020-09-14] MEDS: FLUCONAZOLE 100 MG/50 ML 50 ML IV SCH (20:56)
[2020-09-15] VITALS (29 sets, daily range): BP systolic 91–120; BP diastolic 57–95
[2020-09-15] MEDS: LACTATED RINGERS 1,000 ML IV SCH ×4 (02:30→21:07)
[2020-09-15] MEDS: RT-ALBUTEROL/IPRATROPIUM 3 ML (DUONEB) VIAL INH SCH ×6 (02:32→21:51)
[2020-09-15 03:19] LABS: BASOPHILS % (AUTO) 0 % (0-10); EOSINOPHILS # (AUTO) 0.6 10^3/uL (0.0-0.3); EOSINOPHILS % (AUTO) 6 % (0-10); HEMATOCRIT 24 % (40-54); HEMOGLOBIN 7.6 g/dL (13.3-17.7); LYMPHOCYTES # (AUTO) 1.7 10^3/uL (1.0-4.0); LYMPHOCYTES % (AUTO) 15 % (12-44); MEAN CORPUSCULAR HEMOGLOBIN 30 pg (25-34); MEAN CORPUSCULAR HGB CONC 32 g/dL (32-36); MEAN CORPUSCULAR VOLUME 94 fL (80-99); MEAN PLATELET VOLUME 9.2 fL (9.0-12.2); MONOCYTES # (AUTO) 0.5 10^3/uL (0.0-1.0); MONOCYTES % (AUTO) 5 % (0-12); NEUTROPHILS # (AUTO) 8.3 10^3/uL (1.8-7.8); NEUTROPHILS % (AUTO) 74 % (42-75); PLATELET COUNT 222 10^3/uL (130-400); WHITE BLOOD COUNT 11.2 10^3/uL (4.3-11.0)
[2020-09-15 03:48] LABS: CREATININE SERUM 2.71 MG/DL (0.60-1.30); MAGNESIUM 1.7 MG/DL (1.6-2.4); PHOSPHORUS 3.4 MG/DL (2.3-4.7); POTASSIUM 4.2 MMOL/L (3.6-5.0)
[2020-09-15] MEDS: inSUlin ASPART (NovoLOG) 1 UNIT/0.01 ML (CHARGE PER UNIT) SC SCH ×3 (04:27→17:55)
[2020-09-15] MEDS: KCL 20 MEQ TAB (K-DUR) PO SCH (04:27)
[2020-09-15] MEDS: POTASSIUM CL 10MEQ/50ML IVPB 50 ML IV SCH (04:27)
[2020-09-15] MEDS: MAGNESIUM 1 GM/100 ML IVPB 100 ML IV SCH ×3 (04:30→08:50)
[2020-09-15] MEDS: PIPERACILLIN/TAZO 4.5 GM/NS 100 ML IV SCH ×6 (05:18→21:07)
[2020-09-15] MEDS: PROPOFOL DRIP (ICU) 100 ML IV SCH ×3 (05:18→18:18)
--- NOTE | 2020-09-15 07:00 | Progress Note - Hospitalist ---
Subjective HPI/CC On Admission Date Seen by Provider: Sep 15, 2020 Time Seen by Provider: 11:00 This 55-year-old gentleman [facility] a telehealth visit with a wound care provider. He has a deep sacral wound with concern for possible osteomyelitis. 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 He is nonverbal. He does respond some to stimuli but does not meaningfully communicate. He has a tracheostomy and PEG tube. He also has necrotic decubitus ulcers on his heels. He had a stay at [place] [facility] The wound care provider felt he needed assessment in the emergency room with possible admission for IV antibiotics and surgery. Upon my arrival family were not present and the patient noted to be in a persistent vegetative state does not orient to voice or follow commands. Does not appear to be in acute distress. Subjective/Events-last exam Patient remains stable Trach with vent maintained Patient near comatose as baseline Abx maintained Prognosis poor No family at bedside Focused Exam Lactate Level Objective Exam Vital Signs Vital Signs Date Time Temp Pulse Resp B/P (MAP) Pulse Ox O2 Delivery O2 Flow Rate FiO2 09/16/20 04:00 96 Mechanical Ventilator 35 09/16/20 03:50 36.2 09/16/20 03:45 30.00 09/16/20 03:16 86 26 09/16/20 02:00 114/78 (90) Capillary Refill : Less Than 3 Seconds General Appearance: No Apparent Distress, Chronically ill, Other (sedated) Respiratory: Decreased Breath Sounds Cardiovascular: Regular Rate, Rhythm Results/Procedures Lab Laboratory Tests 09/16/20 02:31 Patient resulted labs reviewed. Assessment/Plan Assessment and Plan Assess & Plan/Chief Complaint Assessment: VDRF Catastrophic CVA 07/14 Contractures Decubitus ulcer stage IV with osteomyelitis Prognosis poor Updated family in face to face meeting yesterday but no changes requested per family Futility assessed 09/15/20: Vent Abx Needs ethics committee evaluation Diagnosis/Problems Diagnosis/Problems (1) Sepsis Status: Acute Qualifiers: Sepsis type: sepsis due to unspecified organism Sepsis acute organ dysfunction status: unspecified Qualified Codes: A41.9 - Sepsis, unspecified organism (2) Decubitus ulcer, heel Status: Acute Qualifiers: Pressure injury stage: unspecified pressure injury stage Laterality: unspecified laterality Qualified Codes: L89.609 - Pressure ulcer of unspecified heel, unspecified stage (3) Hyponatremia Status: Acute (4) Paralytic syndrome, post-stroke Status: Acute MARI FRANKLIN DO Sep 15, 2020 07:00
[2020-09-15] MEDS: amLODIPine 10 MG (NORVASC) TAB PEG SCH (08:06)
[2020-09-15] MEDS: ACETAMINOPHEN 325 MG TABLET PEG SCH ×3 (08:06→21:07)
[2020-09-15] MEDS: FOLIC ACID 1 MG TAB PEG SCH (08:06)
[2020-09-15] MEDS: LACTOBACILLUS ACIDOPHILUS (PROBIOTIC) CAPSULE PEG SCH ×2 (08:06→21:06)
[2020-09-15] MEDS: meTOprolol TARTRATE 50 MG (LOPRESSOR) TAB PEG SCH ×2 (08:06→21:07)
[2020-09-15] MEDS: THIAMINE 100 MG (VITAMIN B-1) TAB PEG SCH ×2 (08:06→21:06)
[2020-09-15] MEDS: CYANOCOBALAMIN 1,000 MCG (VITAMIN B-12) TABLET PEG SCH (08:06)
[2020-09-15] MEDS: FAMOTIDINE 20 MG (PEPCID) TABLET PEG SCH (08:06)
[2020-09-15] MEDS: fentaNYL INJ 100 MCG/2 ML AMP IV SCH ×2 (08:07→21:08)
[2020-09-15] MEDS: LINEZOLID IVPB 300 ML IV SCH ×2 (08:07→21:08)
[2020-09-15] MEDS: HYDROcodone/APAP 5 MG/325 MG (LORTAB) TAB PEG SCH (08:08)
--- NOTE | 2020-09-15 08:32 | Diagnostic Imaging Report ---
INDICATION: Respiratory distress COMPARISON: 09/14/2020 TECHNIQUE: Single radiograph of the chest dated 09/15/2020 FINDINGS: Tracheostomy appliance is again identified with the distal tip overlying the tracheal air column, similar to the prior examination. Right subclavian central venous catheter is again identified with the distal tip crossing midline to extend into the left upper chest, likely within the left brachiocephalic vein. This is unchanged since the prior examination. The cardiac silhouette appears stable. Low lung volumes. The left lung base appears slightly better aerated than the prior examination with minimal persisting opacity. No pneumothorax. No acute osseous abnormality. IMPRESSION: Improved though minimal persisting left basilar pleural fluid versus atelectasis. Right subclavian central venous catheter is again identified and stable, projecting overlying the brachiocephalic vein. Significantly low lung volumes. Dictated by: Dictated on workstation # [id number]
[2020-09-15] MEDS: fentaNYL DRIP PRE-MIX 250 ML IV SCH ×2 (09:48→21:08)
[2020-09-15] MEDS: FLUCONAZOLE 100 MG/50 ML 50 ML IV SCH (21:07)
[2020-09-16] VITALS (30 sets, daily range): BP systolic 99–129; BP diastolic 51–86
[2020-09-16] MEDS: inSUlin ASPART (NovoLOG) 1 UNIT/0.01 ML (CHARGE PER UNIT) SC SCH ×5 (00:53→23:59)
[2020-09-16 02:50] LABS: BASOPHILS % (AUTO) 0 % (0-10); EOSINOPHILS # (AUTO) 0.6 10^3/uL (0.0-0.3); EOSINOPHILS % (AUTO) 7 % (0-10); HEMATOCRIT 25 % (40-54); HEMOGLOBIN 7.8 g/dL (13.3-17.7); LYMPHOCYTES # (AUTO) 1.5 10^3/uL (1.0-4.0); LYMPHOCYTES % (AUTO) 17 % (12-44); MEAN CORPUSCULAR HEMOGLOBIN 30 pg (25-34); MEAN CORPUSCULAR HGB CONC 32 g/dL (32-36); MEAN CORPUSCULAR VOLUME 95 fL (80-99); MEAN PLATELET VOLUME 9.6 fL (9.0-12.2); MONOCYTES # (AUTO) 0.4 10^3/uL (0.0-1.0); MONOCYTES % (AUTO) 5 % (0-12); NEUTROPHILS # (AUTO) 6.2 10^3/uL (1.8-7.8); NEUTROPHILS % (AUTO) 71 % (42-75); PLATELET COUNT 211 10^3/uL (130-400); WHITE BLOOD COUNT 8.8 10^3/uL (4.3-11.0)
[2020-09-16 03:09] LABS: CALCIUM 8.1 MG/DL (8.5-10.1); CREATININE SERUM 2.52 MG/DL (0.60-1.30); PHOSPHORUS 3.3 MG/DL (2.3-4.7); POTASSIUM 4.8 MMOL/L (3.6-5.0)
[2020-09-16] MEDS: RT-ALBUTEROL/IPRATROPIUM 3 ML (DUONEB) VIAL INH SCH ×6 (03:14→22:07)
[2020-09-16] MEDS: MAGNESIUM 1 GM/100 ML IVPB 100 ML IV SCH (03:57)
[2020-09-16] MEDS: POTASSIUM CL 10MEQ/50ML IVPB 50 ML IV SCH (03:57)
[2020-09-16] MEDS: KCL 20 MEQ TAB (K-DUR) PO SCH (05:02)
[2020-09-16] MEDS: PIPERACILLIN/TAZO 4.5 GM/NS 100 ML IV SCH ×6 (05:05→20:29)
[2020-09-16] MEDS: LACTATED RINGERS 1,000 ML IV SCH ×2 (05:24→20:28)
--- NOTE | 2020-09-16 05:39 | Pulmonary Progress Note ---
Subjective Time Seen by a Provider: 05:33 Subjective/Events-last exam Pt is sedated on vent. Sepsis Event Evaluation Height, Weight, BMI Height: '" Weight: lbs. oz. kg; 33.00 BMI Method: Exam Exam Vital Signs Date Time Temp Pulse Resp B/P (MAP) Pulse Ox O2 Delivery O2 Flow Rate FiO2 09/16/20 04:00 96 Mechanical Ventilator 35 09/16/20 03:50 36.2 09/16/20 03:45 Mechanical Ventilator 30.00 09/16/20 03:16 86 26 97 35 09/16/20 02:00 89 20 114/78 (90) 95 Mechanical Ventilator 35.00 09/16/20 01:00 85 25 115/83 (94) 96 Mechanical Ventilator 35.00 09/16/20 01:00 85 09/16/20 00:00 87 25 113/77 (89) 90 Mechanical Ventilator 35.00 09/15/20 23:59 96 Mechanical Ventilator 35 09/15/20 23:50 35.9 09/15/20 23:00 88 25 102/71 (81) 92 Mechanical Ventilator 35.00 09/15/20 22:00 78 25 110/63 (79) 96 Mechanical Ventilator 35.00 09/15/20 21:51 78 26 94 40 09/15/20 21:00 93 25 105/64 (78) 96 Mechanical Ventilator 35.00 09/15/20 20:35 96 Mechanical Ventilator 35 09/15/20 20:00 96 26 99/59 (72) 96 Mechanical Ventilator 35.00 09/15/20 19:00 95 25 108/65 (79) 96 Mechanical Ventilator 35.00 09/15/20 19:00 95 09/15/20 19:00 36.3 09/15/20 18:29 92 26 95 40 09/15/20 18:18 96 108/66 09/15/20 18:00 88 25 100/65 (77) 99 Mechanical Ventilator 35.00 09/15/20 17:00 86 25 103/64 (77) 98 Mechanical Ventilator 35.00 09/15/20 16:17 36.8 09/15/20 16:15 98 Mechanical Ventilator 50 09/15/20 16:00 87 26 100/65 (77) 98 Mechanical Ventilator 35.00 09/15/20 15:45 Mechanical Ventilator 35.00 09/15/20 15:00 87 25 97/62 (74) 99 Mechanical Ventilator 45.00 09/15/20 14:09 86 26 98 40 09/15/20 14:00 87 26 102/64 (77) 99 Mechanical Ventilator 45.00 09/15/20 13:00 85 19 92/58 (69) 96 Mechanical Ventilator 45.00 09/15/20 12:59 Mechanical Ventilator 45.00 09/15/20 12:59 84 101/65 09/15/20 12:57 36.7 09/15/20 12:30 86 09/15/20 12:00 86 26 91/62 (72) 96 Mechanical Ventilator 50.00 09/15/20 11:54 Mechanical Ventilator 50.00 09/15/20 11:53 98 Mechanical Ventilator 50 09/15/20 11:50 Mechanical Ventilator 60.00 09/15/20 11:24 50.00 09/15/20 11:00 89 29 109/63 (78) 93 Mechanical Ventilator 30.00 09/15/20 10:00 86 25 98/69 (79) 94 Mechanical Ventilator 30.00 09/15/20 09:39 84 34 94 40 09/15/20 09:00 84 26 102/65 (77) 96 Mechanical Ventilator 30.00 09/15/20 08:00 101 25 111/66 (81) 95 Mechanical Ventilator 30.00 09/15/20 08:00 36.9 09/15/20 07:52 96 Mechanical Ventilator 30 09/15/20 07:00 104 09/15/20 07:00 103 24 107/65 (79) 95 Mechanical Ventilator 30.00 09/15/20 06:46 102 26 95 30 09/15/20 06:00 102 28 95/57 (70) 95 Mechanical Ventilator 30.00 I & O 09/16/20 07:00 Intake Total 6605 ml Output Total 3255 ml Balance 3350 ml Height & Weight Height: '" Weight: lbs. oz. kg; 33.00 BMI Method: General Appearance: No Apparent Distress, Chronically ill, Other (sedated) HEENT: Other (Mucous membranes moist. Purulent drainage from the right eye with a filmy appearance to the eye surface and slight injection of erythema.) Neck: Normal Inspection Respiratory: Decreased Breath Sounds Cardiovascular: Regular Rate, Rhythm Capillary Refill: Less Than 3 Seconds Gastrointestinal: normal bowel sounds, non tender, soft Extremity: Normal Inspection, No Pedal Edema Neurologic/Psychiatric: Aphasia, Motor Weakness, Sensory Deficit, Other (quadrapelegic ) Skin: Warm/Dry, Other (Necrotic decubitus ulcers on both heels. Very deep sacral wound.) Lymphatic: No Adenopathy Results Lab Laboratory Tests 09/15/20 03:11 09/16/20 02:31 Assessment/Plan Assessment/Plan Chronic respiratory failure with chronic tracheostomy -Pt is still currently on Ventilator -Vent 400, 26, 5, 30% -Propofol 10 and Fentanyl 100 --- D/C sedation -Admitted 09/06 -Currently requiring 2 liters of oxygen -Labs pending -Repeat ABG Anemia - Continue to monitor - occult stool negative Sepsis -Continue zosyn and zyvox and diflucan -Aviles cultures pending Metabolic lactic acidosis - improving -IVF -Monitor Osteomyelitis - 2/2 grade 4 sacral decubitus ulcer Continue IV zosyn surgery following ATN Change Vanco to Zyvox Labs pending -May need to transfer for nephrology b/l decubitus calcaneal ulcers neg for osteomyelitis on 09/06 xray. Wound care anion gap metabolic acidosis multifactorial - 2/2 lactic acidosis today and IV NS. NIDDM chronic UTI 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 Tube feeding. TREY FIELDS DO Sep 16, 2020 05:39
[2020-09-16] MEDS: HYDROcodone/APAP 5 MG/325 MG (LORTAB) TAB PEG SCH (05:59)
--- NOTE | 2020-09-16 08:04 | Diagnostic Imaging Report ---
HISTORY: Respiratory distress, follow-up COMPARISON: 09/15/2020 TECHNIQUE: Frontal view of the chest FINDINGS: Lung volumes are low. The tracheostomy appears stable. There are airspace opacities in the lung bases and the perihilar region bilaterally. There are small bilateral pleural effusions. The right central line tip projects over the mid SVC. No pneumothorax is seen. The cardiac silhouette is normal in size. IMPRESSION: 1. Low lung volumes with bilateral airspace opacities, may represent atelectasis or infiltrate. 2. Small bilateral pleural effusions. Dictated by: Dictated on workstation # [id number]
[2020-09-16] MEDS: FOLIC ACID 1 MG TAB PEG SCH (08:48)
[2020-09-16] MEDS: LACTOBACILLUS ACIDOPHILUS (PROBIOTIC) CAPSULE PEG SCH ×2 (08:49→20:27)
[2020-09-16] MEDS: ACETAMINOPHEN 325 MG TABLET PEG SCH ×3 (08:49→20:26)
[2020-09-16] MEDS: LINEZOLID IVPB 300 ML IV SCH ×2 (08:49→20:27)
[2020-09-16] MEDS: meTOprolol TARTRATE 50 MG (LOPRESSOR) TAB PEG SCH ×2 (08:49→20:26)
[2020-09-16] MEDS: CYANOCOBALAMIN 1,000 MCG (VITAMIN B-12) TABLET PEG SCH (08:49)
[2020-09-16] MEDS: THIAMINE 100 MG (VITAMIN B-1) TAB PEG SCH ×2 (08:49→20:26)
[2020-09-16] MEDS: FAMOTIDINE 20 MG (PEPCID) TABLET PEG SCH (08:49)
[2020-09-16] MEDS: fentaNYL INJ 100 MCG/2 ML AMP IV SCH ×2 (09:44→20:26)
[2020-09-16] MEDS: morphine INJ 10 MG/ML 1ML (SYR OR VIAL) IVP PRN ×2 (10:06→22:14)
[2020-09-16] MEDS: amLODIPine 10 MG (NORVASC) TAB PEG SCH (10:11)
--- NOTE | 2020-09-16 13:14 | Progress Note ---
Subjective Subjective/Events-last exam On mechanical ventilator, no meaningful responses noted, off sedation, but did receive fentanyl this morning for dressing change. Objective Exam Last Set of Vital Signs Vital Signs Date Time Temp Pulse Resp B/P (MAP) Pulse Ox O2 Delivery O2 Flow Rate FiO2 09/16/20 12:00 85 25 107/74 (85) 97 Mechanical Ventilator 30.00 09/16/20 12:00 36.4 09/16/20 11:43 97 Capillary Refill : Less Than 3 Seconds I&O Intake and Output 09/16/20 00:00 Intake Total 7080 ml Output Total 2705 ml Balance 4375 ml Intake Oral 0 ml IV Total 5630 ml Tube Feeding 1050 ml Other 400 ml Output Urine Total 2025 ml Stool Total 680 ml General: Other (opens eyes occasionally but not in response to name or touch) Lungs: Other (ronchi) Heart: Regular Rate Abdomen: Normal Bowel Sounds, Soft Extremities: Other (trace edema in all extremities) Neuro: Other (no clear response to voice or touch) Results/Procedures Lab Laboratory Tests 09/15/20 17:54: Glucometer 102 09/15/20 23:52: Glucometer 85 09/16/20 02:31: White Blood Count 8.8, Red Blood Count 2.62L, Hemoglobin 7.8L, Hematocrit 25L, Mean Corpuscular Volume 95, Mean Corpuscular Hemoglobin 30, Mean Corpuscular Hemoglobin Concent 32, Red Cell Distribution Width 15.4H, Platelet Count 211, Mean Platelet Volume 9.6, Immature Granulocyte % (Auto) 1, Neutrophils (%) (Auto) 71, Lymphocytes (%) (Auto) 17, Monocytes (%) (Auto) 5, Eosinophils (%) (Auto) 7, Basophils (%) (Auto) 0, Neutrophils # (Auto) 6.2, Lymphocytes # (Auto) 1.5, Monocytes # (Auto) 0.4, Eosinophils # (Auto) 0.6H, Basophils # (Auto) 0.0, Immature Granulocyte # (Auto) 0.1, Sodium Level 147H, Potassium Level 4.8, Chloride Level 117H, Carbon Dioxide Level 20L, Anion Gap 10, Blood Urea Nitrogen 19H, Creatinine 2.52H, Estimat Glomerular Filtration Rate 32, BUN/Creatinine Ratio 8, Glucose Level 105, Calcium Level 8.1L, Phosphorus Level 3.3, Magnesium Level 2.0 09/16/20 11:42: Glucometer 114H Microbiology 09/13/20 Gram Stain - Final, Resulted 09/13/20 Sputum Culture - Preliminary, Resulted Acinetobacter baumannii/c. com Usual upper respiratory fredis 09/12/20 Blood Culture - Preliminary, Resulted No growth 09/12/20 Urine Culture - Final, Complete YEAST Assessment/Plan Assessment/Plan (1) Sepsis Status: Acute Assessment & Plan: Secondary to cellulitis/osteomyelitis/UTI. Urine culture with klebsiella and yeast- on fluconazole and zosyn, sputum culture with acinetobacter. On linezolid. Qualifiers: Qualified Codes: A41.9 - Sepsis, unspecified organism (2) Osteomyelitis of coccyx Status: Acute Assessment & Plan: Severe with wound overlying and friable bone. Not treatable with surgery. On linezolid and zosyn. (3) Hyponatremia Status: Resolved (4) Paralytic syndrome, post-stroke Status: Chronic Assessment & Plan: No meaningful use of any extremities since stroke in Jun. (5) Acute kidney injury Status: Acute Assessment & Plan: Trending better, but still significant (6) Hypernatremia Status: Acute Assessment & Plan: Free water per G tube ordered per Dr. Ivan. (7) Yeast UTI Status: Acute Assessment & Plan: On fluconazole. (8) Respiratory failure Status: Acute Assessment & Plan: Acute on chronic, has tracheostomy at baseline, but now requiring ventilation, on 30% FiO2 today. Appreciate Pulmonology recommendations. Qualifiers: Qualified Codes: J96.21 - Acute and chronic respiratory failure with hypoxia (9) Seizure as late effect of cerebrovascular accident (CVA) Status: Acute Assessment & Plan: Keppra started, improved. (10) Tracheostomy in place Status: Chronic (11) Gastrostomy tube in place Status: Chronic (12) DVT prophylaxis Status: Acute Assessment & Plan: SCDs, Hemoglobin trending down, 7.8 today. No pharmacologic prophylaxis. (13) Goals of care, counseling/discussion Status: Acute Assessment & Plan: With marked underlying morbidity and severe wound that cannot be treated with surgery, prognosis for healing is poor. Will try to set up family meeting to discuss further. PROMISE BEGUM MD Sep 16, 2020 13:14
[2020-09-16] MEDS: FLUCONAZOLE 100 MG/50 ML 50 ML IV SCH (20:27)
[2020-09-17] VITALS (31 sets, daily range): BP systolic 109–137; BP diastolic 67–97
[2020-09-17] MEDS: RT-ALBUTEROL/IPRATROPIUM 3 ML (DUONEB) VIAL INH SCH ×6 (02:11→22:06)
[2020-09-17] MEDS: HYDROcodone/APAP 5 MG/325 MG (LORTAB) TAB PO PRN (02:48)
[2020-09-17 03:01] LABS: BASOPHILS % (AUTO) 0 % (0-10); EOSINOPHILS # (AUTO) 0.6 10^3/uL (0.0-0.3); EOSINOPHILS % (AUTO) 6 % (0-10); HEMATOCRIT 24 % (40-54); HEMOGLOBIN 7.6 g/dL (13.3-17.7); LYMPHOCYTES # (AUTO) 1.8 10^3/uL (1.0-4.0); LYMPHOCYTES % (AUTO) 17 % (12-44); MEAN CORPUSCULAR HEMOGLOBIN 30 pg (25-34); MEAN CORPUSCULAR HGB CONC 32 g/dL (32-36); MEAN CORPUSCULAR VOLUME 95 fL (80-99); MEAN PLATELET VOLUME 9.6 fL (9.0-12.2); MONOCYTES # (AUTO) 0.5 10^3/uL (0.0-1.0); MONOCYTES % (AUTO) 5 % (0-12); NEUTROPHILS # (AUTO) 7.3 10^3/uL (1.8-7.8); NEUTROPHILS % (AUTO) 71 % (42-75); PLATELET COUNT 236 10^3/uL (130-400); WHITE BLOOD COUNT 10.3 10^3/uL (4.3-11.0)
[2020-09-17 03:20] LABS: CALCIUM 8.2 MG/DL (8.5-10.1); CREATININE SERUM 2.56 MG/DL (0.60-1.30); MAGNESIUM 1.8 MG/DL (1.6-2.4); PHOSPHORUS 3.3 MG/DL (2.3-4.7); POTASSIUM 4.6 MMOL/L (3.6-5.0)
--- NOTE | 2020-09-17 04:34 | Pulmonary Progress Note ---
Subjective Time Seen by a Provider: 04:32 Subjective/Events-last exam Pt is off sedation currently and tolerating. Sepsis Event Evaluation Height, Weight, BMI Height: '" Weight: lbs. oz. kg; 33.00 BMI Method: Exam Exam Vital Signs Date Time Temp Pulse Resp B/P (MAP) Pulse Ox O2 Delivery O2 Flow Rate FiO2 09/17/20 04:00 98 26 122/79 (93) 97 Mechanical Ventilator 35.00 09/17/20 03:00 96 29 123/78 (93) 97 Mechanical Ventilator 35.00 09/17/20 02:11 97 26 94 35 09/17/20 02:00 92 27 113/69 (84) 98 Mechanical Ventilator 35.00 09/17/20 01:00 90 09/17/20 01:00 90 26 116/70 (85) 97 Mechanical Ventilator 35.00 09/17/20 00:00 90 31 119/72 (88) 97 Mechanical Ventilator 35.00 09/17/20 00:00 36.6 Mechanical Ventilator 35.00 09/16/20 23:59 96 Mechanical Ventilator 26 09/16/20 23:05 36.4 Mechanical Ventilator 35.00 09/16/20 23:00 96 26 109/67 (81) 100 Mechanical Ventilator 60.00 09/16/20 22:07 97 30 95 60 09/16/20 22:00 96 22 126/84 (98) 93 Mechanical Ventilator 30.00 09/16/20 21:00 101 28 129/86 (100) 92 Mechanical Ventilator 30.00 09/16/20 20:00 101 27 128/82 (97) 92 Mechanical Ventilator 30.00 09/16/20 20:00 96 Mechanical Ventilator 26 09/16/20 19:37 36.6 09/16/20 19:00 101 28 126/83 (97) 93 Mechanical Ventilator 30.00 09/16/20 19:00 101 09/16/20 18:06 101 24 93 35 09/16/20 18:00 101 20 123/83 (96) 92 Mechanical Ventilator 30.00 09/16/20 17:00 101 26 112/80 (91) 88 Mechanical Ventilator 30.00 09/16/20 16:34 36.9 09/16/20 16:00 95 25 100/63 (75) 95 Mechanical Ventilator 30.00 09/16/20 15:00 95 25 99/62 (74) 94 Mechanical Ventilator 30.00 09/16/20 14:25 89 28 97 30 09/16/20 14:00 87 26 106/66 (79) 97 Mechanical Ventilator 30.00 09/16/20 13:00 86 25 106/70 (82) 98 Mechanical Ventilator 30.00 09/16/20 12:41 86 09/16/20 12:00 85 25 107/74 (85) 97 Mechanical Ventilator 30.00 09/16/20 12:00 36.4 09/16/20 11:43 95 Mechanical Ventilator 97 09/16/20 11:00 85 22 110/72 (85) 97 Mechanical Ventilator 30.00 09/16/20 10:36 80 26 100 100 09/16/20 10:00 83 25 117/71 (86) 97 Mechanical Ventilator 30.00 09/16/20 09:00 89 26 108/68 (81) 96 Mechanical Ventilator 30.00 09/16/20 08:30 95 Mechanical Ventilator 30 09/16/20 08:00 91 26 106/71 (83) 97 Mechanical Ventilator 30.00 09/16/20 07:32 36.5 09/16/20 07:00 92 23 102/69 (80) 96 Mechanical Ventilator 30.00 09/16/20 06:39 86 09/16/20 06:35 86 26 100 30 09/16/20 06:00 86 25 109/70 (83) 98 Mechanical Ventilator 30.00 09/16/20 05:00 87 26 110/70 (83) 100 Mechanical Ventilator 30.00 I & O 09/17/20 07:00 Intake Total 2430 ml Output Total 4160 ml Balance -1730 ml Height & Weight Height: '" Weight: lbs. oz. kg; 33.00 BMI Method: General Appearance: No Apparent Distress, Chronically ill, Other (sedated) HEENT: Other (Mucous membranes moist. Purulent drainage from the right eye with a filmy appearance to the eye surface and slight injection of erythema.) Neck: Normal Inspection Respiratory: Decreased Breath Sounds Cardiovascular: Regular Rate, Rhythm Capillary Refill: Less Than 3 Seconds Gastrointestinal: normal bowel sounds, non tender, soft Extremity: Normal Inspection, No Pedal Edema Neurologic/Psychiatric: Aphasia, Motor Weakness, Sensory Deficit, Other (quadrapelegic ) Skin: Warm/Dry, Other (Necrotic decubitus ulcers on both heels. Very deep sacral wound.) Lymphatic: No Adenopathy Results Lab Laboratory Tests 09/16/20 02:31 09/17/20 02:50 Assessment/Plan Assessment/Plan Chronic respiratory failure with chronic tracheostomy -Pt is still currently on Ventilator -Vent 400, 26, 5, 30% -Change PS 10/5 and repeat ABG in 1hr. -Pt is off sedation -Admitted 09/06 -Currently requiring 2 liters of oxygen -Labs pending -Repeat ABG Anemia - Continue to monitor - occult stool negative Sepsis -Continue zosyn and zyvox and diflucan -Aviles cultures pending Metabolic lactic acidosis - improving -IVF -Monitor Osteomyelitis - 2/2 grade 4 sacral decubitus ulcer Continue IV zosyn surgery following ATN Zyvox Labs pending -May need to transfer for nephrology b/l decubitus calcaneal ulcers Wound care NIDDM chronic UTI 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 Tube feeding. TREY FIELDS DO Sep 17, 2020 04:34
[2020-09-17] MEDS: PIPERACILLIN/TAZO 4.5 GM/NS 100 ML IV SCH ×2 (05:04)
[2020-09-17] MEDS: POTASSIUM CL 10MEQ/50ML IVPB 50 ML IV SCH (06:03)
[2020-09-17] MEDS: KCL 20 MEQ TAB (K-DUR) PO SCH (06:03)
[2020-09-17] MEDS: MAGNESIUM 1 GM/100 ML IVPB 100 ML IV SCH (06:03)
[2020-09-17] MEDS: inSUlin ASPART (NovoLOG) 1 UNIT/0.01 ML (CHARGE PER UNIT) SC SCH ×4 (06:03→23:17)
[2020-09-17 06:29] LABS: ABG BASE EXCESS -1.2 MMOL/L (-2.5-2.5); ABG OXYGEN SATURATION 97 % (94-100); ABG PCO2 34 MMHG (35-45); ABG PH 7.43 (7.37-7.43); ABG PO2 76 MMHG (79-93); ABG TCO2 23.6 MMOL/L (21.0-31.0)
[2020-09-17 06:30] LABS: ALLENS TEST YES-POS; INSPIRED O2 30%; PATIENT TEMP 98.5; VENTILATOR YES
--- NOTE | 2020-09-17 08:07 | Diagnostic Imaging Report ---
Clinical indications: Patient with respiratory distress. Patient with chronic wounds. Exam: Portable chest x-ray upright view. Comparisons: Chest x-ray dated 09/16/2020. Findings: Tracheostomy tube again seen. Right sided central line again seen in stable position. There is stable appearance of the lung cisneros with bilateral lung mild airspace and groundglass opacities which may represent atelectasis or infiltrates. There is no pleural effusion or pneumothorax. Pulmonary vasculature and cardiac silhouette is stable. IMPRESSION: Stable chest x-ray exam with mild airspace opacities which may represent atelectasis and/or infiltrate. Dictated by: Dictated on workstation # [id number]
[2020-09-17] MEDS: amLODIPine 10 MG (NORVASC) TAB PEG SCH (08:10)
[2020-09-17] MEDS: THIAMINE 100 MG (VITAMIN B-1) TAB PEG SCH ×2 (08:10→20:33)
[2020-09-17] MEDS: ACETAMINOPHEN 325 MG TABLET PEG SCH ×3 (08:10→20:33)
[2020-09-17] MEDS: LACTOBACILLUS ACIDOPHILUS (PROBIOTIC) CAPSULE PEG SCH ×2 (08:10→20:33)
[2020-09-17] MEDS: FOLIC ACID 1 MG TAB PEG SCH (08:10)
[2020-09-17] MEDS: FAMOTIDINE 20 MG (PEPCID) TABLET PEG SCH (08:10)
[2020-09-17] MEDS: CYANOCOBALAMIN 1,000 MCG (VITAMIN B-12) TABLET PEG SCH (08:10)
[2020-09-17] MEDS: meTOprolol TARTRATE 50 MG (LOPRESSOR) TAB PEG SCH ×2 (08:10→20:33)
[2020-09-17] MEDS: HYDROcodone/APAP 5 MG/325 MG (LORTAB) TAB PEG SCH (08:11)
[2020-09-17] MEDS: LINEZOLID IVPB 300 ML IV SCH (08:12)
[2020-09-17] MEDS: MEROPENEM 2,000 MG in NS (IVPB) 100 ML IV SCH ×2 (09:26→20:32)
[2020-09-17] MEDS: morphine INJ 10 MG/ML 1ML (SYR OR VIAL) IVP PRN ×2 (09:26→20:32)
[2020-09-17] MEDS: DOXYCYCLINE INJECTION 100 MG in NS (IVPB) 100 ML IV SCH ×2 (09:26→20:39)
--- NOTE | 2020-09-17 18:10 | Progress Note ---
Subjective Subjective/Events-last exam Afebrile, able to be weaned to pressure support on ventilator this morning. Objective Exam Last Set of Vital Signs Vital Signs Date Time Temp Pulse Resp B/P (MAP) Pulse Ox O2 Delivery O2 Flow Rate FiO2 09/17/20 16:00 92 28 125/84 (98) 92 Mechanical Ventilator 35.00 09/17/20 16:00 30 09/17/20 15:43 36.1 Capillary Refill : Less Than 3 Seconds I&O Intake and Output 09/17/20 00:00 Intake Total 3980 ml Output Total 5285 ml Balance -1305 ml Intake Oral 0 ml IV Total 1555 ml Tube Feeding 1225 ml Other 1200 ml Output Urine Total 4325 ml Stool Total 960 ml # Bowel Movements 2 General: Other (no response to voice or touch, no eye opening) Lungs: Other (ronchi) Heart: Regular Rate Abdomen: Normal Bowel Sounds, Soft Extremities: Other (bilateral hand pitting edema, no leg edema) Results/Procedures Lab Laboratory Tests 09/16/20 23:49: Glucometer 103 09/17/20 02:50: White Blood Count 10.3, Red Blood Count 2.50L, Hemoglobin 7.6L, Hematocrit 24L, Mean Corpuscular Volume 95, Mean Corpuscular Hemoglobin 30, Mean Corpuscular Hemoglobin Concent 32, Red Cell Distribution Width 15.1H, Platelet Count 236, Mean Platelet Volume 9.6, Immature Granulocyte % (Auto) 0, Neutrophils (%) (Auto) 71, Lymphocytes (%) (Auto) 17, Monocytes (%) (Auto) 5, Eosinophils (%) (Auto) 6, Basophils (%) (Auto) 0, Neutrophils # (Auto) 7.3, Lymphocytes # (Auto) 1.8, Monocytes # (Auto) 0.5, Eosinophils # (Auto) 0.6H, Basophils # (Auto) 0.0, Immature Granulocyte # (Auto) 0.0, Sodium Level 146H, Potassium Level 4.6, Chloride Level 114H, Carbon Dioxide Level 21, Anion Gap 11, Blood Urea Nitrogen 20H, Creatinine 2.56H, Estimat Glomerular Filtration Rate 32, BUN/Creatinine Ratio 8, Glucose Level 98, Calcium Level 8.2L, Phosphorus Level 3.3, Magnesium Level 1.8, Triglycerides Level 53 09/17/20 06:20: Blood Gas Puncture Site LR, Blood Gas Patient Temperature 98.5, Arterial Blood pH 7.43, Arterial Blood Partial Pressure CO2 34L, Arterial Blood Partial Pressure O2 76L, Arterial Blood HCO3 23, Arterial Blood Total CO2 23.6, Arterial Blood Oxygen Saturation 97, Arterial Blood Base Excess -1.2, Ruddy Test YES-POS, Blood Gas Ventilator Setting YES, Blood Gas Inspired Oxygen 30% 09/17/20 11:05: Glucometer 93 09/17/20 17:30: Glucometer 86 Microbiology 09/13/20 Gram Stain - Final, Complete 09/13/20 Sputum Culture - Final, Complete Acinetobacter baumannii/c. com Usual upper respiratory fredis 09/12/20 Blood Culture - Final, Complete No growth 09/12/20 Urine Culture - Final, Complete YEAST Assessment/Plan Assessment/Plan (1) Sepsis Status: Acute Assessment & Plan: Secondary to cellulitis/osteomyelitis/UTI. Urine culture with klebsiella and yeast- on fluconazole and zosyn, sputum culture with acinetobacter. On linezolid. 09/17 acinetobater is resistant, antibiotics changed to doxycycline and meropenem Qualifiers: Qualified Codes: A41.9 - Sepsis, unspecified organism (2) Osteomyelitis of coccyx Status: Acute Assessment & Plan: Severe with wound overlying and friable bone. Not treatable with surgery. On linezolid and zosyn. 09/17 changed to doxycycline and meropenem as noted above (3) Hyponatremia Status: Resolved (4) Paralytic syndrome, post-stroke Status: Chronic Assessment & Plan: No meaningful use of any extremities since stroke in Jun. (5) Acute kidney injury Status: Acute Assessment & Plan: Trending better, but still significant (6) Hypernatremia Status: Acute Assessment & Plan: Free water per G tube ordered per Dr. vIan. 09/17 slight improvement, may need increased free water, will monitor tomorrow's lab (7) Yeast UTI Status: Acute Assessment & Plan: On fluconazole. (8) Respiratory failure Status: Acute Assessment & Plan: Acute on chronic, has tracheostomy at baseline, but now requiring ventilation, on 30% FiO2 today. Appreciate Pulmonology recommendations. 09/17 changed to pressure support and anticipating changing to blow by oxygen soon. Qualifiers: Qualified Codes: J96.21 - Acute and chronic respiratory failure with hypoxia (9) Seizure as late effect of cerebrovascular accident (CVA) Status: Acute Assessment & Plan: Keppra started, improved. (10) Tracheostomy in place Status: Chronic (11) Gastrostomy tube in place Status: Chronic (12) DVT prophylaxis Status: Acute Assessment & Plan: SCDs, Hemoglobin trending down, 7.6 today. No pharmacologic prophylaxis. (13) Goals of care, counseling/discussion Status: Acute Assessment & Plan: With marked underlying morbidity and severe wound that can not be treated with surgery, prognosis for healing is poor. Will try to set up family meeting to discuss further. 09/17 family meeting this morning, discussed all the above issues. 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 For now, will continue with current treatments. PROMISE BEGUM MD Sep 17, 2020 18:10
[2020-09-17] MEDS: FLUCONAZOLE 100 MG/50 ML 50 ML IV SCH (20:38)
[2020-09-17] MEDS: LACTATED RINGERS 1,000 ML IV SCH (20:39)
[2020-09-18] VITALS (30 sets, daily range): BP systolic 117–147; BP diastolic 8–107
[2020-09-18] MEDS: RT-ALBUTEROL/IPRATROPIUM 3 ML (DUONEB) VIAL INH SCH ×6 (02:37→21:40)
[2020-09-18 03:24] LABS: BASOPHILS % (AUTO) 0 % (0-10); EOSINOPHILS # (AUTO) 0.8 10^3/uL (0.0-0.3); EOSINOPHILS % (AUTO) 7 % (0-10); HEMATOCRIT 27 % (40-54); HEMOGLOBIN 8.4 g/dL (13.3-17.7); LYMPHOCYTES # (AUTO) 2.1 10^3/uL (1.0-4.0); LYMPHOCYTES % (AUTO) 19 % (12-44); MEAN CORPUSCULAR HEMOGLOBIN 30 pg (25-34); MEAN CORPUSCULAR HGB CONC 32 g/dL (32-36); MEAN CORPUSCULAR VOLUME 95 fL (80-99); MONOCYTES # (AUTO) 0.7 10^3/uL (0.0-1.0); MONOCYTES % (AUTO) 6 % (0-12); NEUTROPHILS # (AUTO) 7.6 10^3/uL (1.8-7.8); NEUTROPHILS % (AUTO) 68 % (42-75); PLATELET COUNT 324 10^3/uL (130-400); WHITE BLOOD COUNT 11.2 10^3/uL (4.3-11.0)
[2020-09-18 03:55] LABS: CALCIUM 8.3 MG/DL (8.5-10.1); CREATININE SERUM 2.48 MG/DL (0.60-1.30); MAGNESIUM 1.8 MG/DL (1.6-2.4); PHOSPHORUS 3.6 MG/DL (2.3-4.7); POTASSIUM 4.4 MMOL/L (3.6-5.0)
[2020-09-18] MEDS: KCL 20 MEQ TAB (K-DUR) PO SCH (06:08)
[2020-09-18] MEDS: POTASSIUM CL 10MEQ/50ML IVPB 50 ML IV SCH (06:08)
[2020-09-18] MEDS: MAGNESIUM 1 GM/100 ML IVPB 100 ML IV SCH (06:08)
[2020-09-18] MEDS: inSUlin ASPART (NovoLOG) 1 UNIT/0.01 ML (CHARGE PER UNIT) SC SCH ×3 (06:09→18:52)
--- NOTE | 2020-09-18 07:15 | Diagnostic Imaging Report ---
INDICATION: Respiratory distress Portable chest shows normal heart size and vascularity. There is basilar atelectasis. The upper lungs are clear. There is no effusion or pneumothorax. Tracheostomy tube and central catheter remain in place. These findings are similar to the 09/17/2020 study. IMPRESSION: Stable chest. Dictated by: Dictated on workstation # [id number]
[2020-09-18] MEDS: MEROPENEM 2,000 MG in NS (IVPB) 100 ML IV SCH ×2 (08:26→20:58)
[2020-09-18] MEDS: HYDROcodone/APAP 5 MG/325 MG (LORTAB) TAB PEG SCH ×3 (08:26→20:58)
[2020-09-18] MEDS: ACETAMINOPHEN 325 MG TABLET PEG SCH (08:26)
[2020-09-18] MEDS: CYANOCOBALAMIN 1,000 MCG (VITAMIN B-12) TABLET PEG SCH (08:26)
[2020-09-18] MEDS: DOXYCYCLINE INJECTION 100 MG in NS (IVPB) 100 ML IV SCH ×2 (08:26→20:57)
[2020-09-18] MEDS: FOLIC ACID 1 MG TAB PEG SCH (08:27)
[2020-09-18] MEDS: meTOprolol TARTRATE 50 MG (LOPRESSOR) TAB PEG SCH ×2 (08:27→20:58)
[2020-09-18] MEDS: FAMOTIDINE 20 MG (PEPCID) TABLET PEG SCH (08:27)
[2020-09-18] MEDS: amLODIPine 10 MG (NORVASC) TAB PEG SCH (08:27)
[2020-09-18] MEDS: THIAMINE 100 MG (VITAMIN B-1) TAB PEG SCH ×2 (08:27→20:58)
[2020-09-18] MEDS: LACTOBACILLUS ACIDOPHILUS (PROBIOTIC) CAPSULE PEG SCH ×2 (08:27→20:58)
[2020-09-18] MEDS: morphine INJ 10 MG/ML 1ML (SYR OR VIAL) IVP PRN (10:39)
[2020-09-18] MEDS: ENOXAPARIN 40 MG/0.4 ML (LOVENOX) SYR SQ SCH (10:51)
[2020-09-18] MEDS: SCOPOLAMINE 1.5 MG (TRANSDERM-SCOP) PATCH TD SCH (10:54)
--- NOTE | 2020-09-18 11:57 | Progress Note ---
Subjective Subjective/Events-last exam Afebrile, nursing note that he seems to have a lot of pain with any movement and has a lot of oral secretions that he is having difficulty with. Required some increase in FiO2 overnight but able to wean back down this morning. Objective Exam Last Set of Vital Signs Vital Signs Date Time Temp Pulse Resp B/P (MAP) Pulse Ox O2 Delivery O2 Flow Rate FiO2 09/18/20 11:50 36.8 09/18/20 11:00 100 26 124/85 (98) 97 Mechanical Ventilator 35.00 09/18/20 09:55 35 Capillary Refill : Less Than 3 Seconds I&O Intake and Output 09/18/20 00:00 Intake Total 1855 ml Output Total 4200 ml Balance -2345 ml Intake Oral 0 ml IV Total 355 ml Tube Feeding 700 ml Other 800 ml Output Urine Total 4200 ml General: Other (does not respond to voice or touch) Lungs: Other (ronchi) Heart: Regular Rate Extremities: Other (1+ pitting edema in hands and legs) Results/Procedures Lab Laboratory Tests 09/17/20 17:30: Glucometer 86 09/18/20 02:50: White Blood Count 11.2H, Red Blood Count 2.79L, Hemoglobin 8.4L, Hematocrit 27L, Mean Corpuscular Volume 95, Mean Corpuscular Hemoglobin 30, Mean Corpuscular Hemoglobin Concent 32, Red Cell Distribution Width 15.4H, Platelet Count 324, Mean Platelet Volume 10.0, Immature Granulocyte % (Auto) 1, Neutrophils (%) (Auto) 68, Lymphocytes (%) (Auto) 19, Monocytes (%) (Auto) 6, Eosinophils (%) (Auto) 7, Basophils (%) (Auto) 0, Neutrophils # (Auto) 7.6, Lymphocytes # (Auto) 2.1, Monocytes # (Auto) 0.7, Eosinophils # (Auto) 0.8H, Basophils # (Auto) 0.0, Immature Granulocyte # (Auto) 0.1, Sodium Level 147H, Potassium Level 4.4, Chloride Level 114H, Carbon Dioxide Level 22, Anion Gap 11, Blood Urea Nitrogen 19H, Creatinine 2.48H, Estimat Glomerular Filtration Rate 33, BUN/Creatinine Ratio 8, Glucose Level 102, Calcium Level 8.3L, Phosphorus Level 3.6, Magnesium Level 1.8 Microbiology 09/13/20 Gram Stain - Final, Complete 4/23/21 Sputum Culture - Final, Complete Acinetobacter baumannii/c. com Usual upper respiratory fredis 09/12/20 Blood Culture - Final, Complete No growth 09/12/20 Urine Culture - Final, Complete YEAST Assessment/Plan Assessment/Plan (1) Sepsis Status: Acute Assessment & Plan: Secondary to cellulitis/osteomyelitis/UTI. Urine culture with klebsiella and yeast- on fluconazole and zosyn, sputum culture with acinetobacter. On linezolid. 09/17 acinetobater is resistant, antibiotics changed to doxycycline and meropenem Qualifiers: Qualified Codes: A41.9 - Sepsis, unspecified organism (2) Osteomyelitis of coccyx Status: Acute Assessment & Plan: Severe with wound overlying and friable bone. Not treatable with surgery. On linezolid and zosyn. 09/17 changed to doxycycline and meropenem as noted above (3) Hyponatremia Status: Resolved (4) Paralytic syndrome, post-stroke Status: Chronic Assessment & Plan: No meaningful use of any extremities since stroke in Jun. (5) Acute kidney injury Status: Acute Assessment & Plan: Trending better, but still significant (6) Hypernatremia Status: Acute Assessment & Plan: Free water per G tube ordered per Dr. Ivan. 09/17 slight improvement, may need increased free water, will monitor tomorrow's lab 09/18 worsened again, will increase free water to 250 ml q4 (7) Yeast UTI Status: Acute Assessment & Plan: On fluconazole. (8) Respiratory failure Status: Acute Assessment & Plan: Acute on chronic, has tracheostomy at baseline, but now requiring ventilation, on 30% FiO2 today. Appreciate Pulmonology recommendations. 09/17 changed to pressure support and anticipating changing to blow by oxygen soon. 09/18 remains stable on pressure support only Qualifiers: Qualified Codes: J96.21 - Acute and chronic respiratory failure with hypoxia (9) Seizure as late effect of cerebrovascular accident (CVA) Status: Acute Assessment & Plan: Keppra started, improved. (10) Tracheostomy in place Status: Chronic (11) Gastrostomy tube in place Status: Chronic (12) DVT prophylaxis Status: Acute Assessment & Plan: SCDs, Hemoglobin trending down, 7.6 today. No pharmacologic prophylaxis. (13) Goals of care, counseling/discussion Status: Acute Assessment & Plan: With marked underlying morbidity and severe wound that cannot be treated with surgery, prognosis for healing is poor. Will try to set up family meeting to discuss further. 09/17 family meeting this morning, discussed all the above issues. 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 For now, will continue with current treatments. 09/18 updated sister via telephone, she stated they are continuing to discuss and believe they will have some further decisions soon, continuing current management for now. PROMISE BEGUM MD Sep 18, 2020 11:57
[2020-09-18] MEDS: FLUCONAZOLE 100 MG/50 ML 50 ML IV SCH (20:57)
[2020-09-19] VITALS (28 sets, daily range): BP systolic 121–152; BP diastolic 75–107
[2020-09-19] MEDS: inSUlin ASPART (NovoLOG) 1 UNIT/0.01 ML (CHARGE PER UNIT) SC SCH ×5 (00:19→23:08)
[2020-09-19] MEDS: RT-ALBUTEROL/IPRATROPIUM 3 ML (DUONEB) VIAL INH SCH ×6 (02:13→21:48)
[2020-09-19] MEDS: HYDROcodone/APAP 5 MG/325 MG (LORTAB) TAB PEG SCH ×4 (03:40→20:01)
[2020-09-19 04:00] LABS: ABG BASE EXCESS 2.3 MMOL/L (-2.5-2.5); ABG OXYGEN SATURATION 95 % (94-100); ABG PCO2 34 MMHG (35-45); ABG PH 7.49 (7.37-7.43); ABG PO2 68 MMHG (79-93); ABG TCO2 26.7 MMOL/L (21.0-31.0)
[2020-09-19 04:02] LABS: BASOPHILS % (AUTO) 0 % (0-10); EOSINOPHILS # (AUTO) 0.7 10^3/uL (0.0-0.3); EOSINOPHILS % (AUTO) 9 % (0-10); HEMATOCRIT 26 % (40-54); HEMOGLOBIN 8.3 g/dL (13.3-17.7); LYMPHOCYTES # (AUTO) 1.9 10^3/uL (1.0-4.0); LYMPHOCYTES % (AUTO) 26 % (12-44); MEAN CORPUSCULAR HEMOGLOBIN 30 pg (25-34); MEAN CORPUSCULAR HGB CONC 31 g/dL (32-36); MEAN CORPUSCULAR VOLUME 95 fL (80-99); MEAN PLATELET VOLUME 9.3 fL (9.0-12.2); MONOCYTES # (AUTO) 0.5 10^3/uL (0.0-1.0); MONOCYTES % (AUTO) 7 % (0-12); NEUTROPHILS # (AUTO) 4.4 10^3/uL (1.8-7.8); NEUTROPHILS % (AUTO) 58 % (42-75); PLATELET COUNT 288 10^3/uL (130-400); WHITE BLOOD COUNT 7.6 10^3/uL (4.3-11.0)
[2020-09-19 04:05] LABS: ALLENS TEST NO; PATIENT TEMP 36.6; VENTILATOR YES
[2020-09-19 04:19] LABS: CALCIUM 8.3 MG/DL (8.5-10.1); CREATININE SERUM 2.28 MG/DL (0.60-1.30); MAGNESIUM 1.6 MG/DL (1.6-2.4); PHOSPHORUS 3.3 MG/DL (2.3-4.7); POTASSIUM 4.2 MMOL/L (3.6-5.0)
[2020-09-19] MEDS: POTASSIUM CL 10MEQ/50ML IVPB 50 ML IV SCH (05:38)
[2020-09-19] MEDS: MAGNESIUM 1 GM/100 ML IVPB 100 ML IV SCH (05:38)
[2020-09-19] MEDS: KCL 20 MEQ TAB (K-DUR) PO SCH (05:38)
--- NOTE | 2020-09-19 07:26 | Diagnostic Imaging Report ---
EXAMINATION: Chest 1 view HISTORY: Respiratory distress COMPARISON: Chest radiograph 09/18/2020 FINDINGS: Stable enlargement of the cardiac silhouette. Right-sided central line is unchanged. Stable low lung volumes with patchy interstitial and airspace opacities greatest within the lung bases. The tracheostomy is unchanged. There may be small bilateral pleural effusions. No pneumothorax. The osseous structures are intact. IMPRESSION: 1. Stable low lung volumes with patchy interstitial and airspace opacities. Stable likely small bilateral pleural effusions. Dictated by: Dictated on workstation # [id number]
[2020-09-19] MEDS: MEROPENEM 2,000 MG in NS (IVPB) 100 ML IV SCH ×2 (08:51→20:02)
[2020-09-19] MEDS: THIAMINE 100 MG (VITAMIN B-1) TAB PEG SCH ×2 (08:52→20:01)
[2020-09-19] MEDS: FOLIC ACID 1 MG TAB PEG SCH (08:52)
[2020-09-19] MEDS: LACTOBACILLUS ACIDOPHILUS (PROBIOTIC) CAPSULE PEG SCH ×2 (08:52→20:01)
[2020-09-19] MEDS: CYANOCOBALAMIN 1,000 MCG (VITAMIN B-12) TABLET PEG SCH (08:53)
[2020-09-19] MEDS: ENOXAPARIN 40 MG/0.4 ML (LOVENOX) SYR SQ SCH (08:53)
[2020-09-19] MEDS: meTOprolol TARTRATE 50 MG (LOPRESSOR) TAB PEG SCH ×2 (08:53→20:01)
[2020-09-19] MEDS: FAMOTIDINE 20 MG (PEPCID) TABLET PEG SCH (08:53)
[2020-09-19] MEDS: amLODIPine 10 MG (NORVASC) TAB PEG SCH (08:53)
[2020-09-19] MEDS ORDERED: MINOCYCLINE 100 MG PEG NR (09:00)
--- NOTE | 2020-09-19 11:08 | Progress Note ---
Subjective Subjective/Events-last exam Afebrile, possibly seems more comfortable with the increase in pain medication yesterday. Objective Exam Last Set of Vital Signs Vital Signs Date Time Temp Pulse Resp B/P (MAP) Pulse Ox O2 Delivery O2 Flow Rate FiO2 09/19/20 10:00 105 20 146/107 (120) 93 Mechanical Ventilator 25.00 09/19/20 09:52 25 09/18/20 20:00 36.3 Capillary Refill : Less Than 3 Seconds I&O Intake and Output 09/19/20 00:00 Intake Total 2755 ml Output Total 7075 ml Balance -4320 ml Intake Oral 0 ml IV Total 355 ml Tube Feeding 1050 ml Other 1350 ml Output Urine Total 6225 ml Stool Total 850 ml # Bowel Movements 1 General: Other (opens eyes intermittently but not in response to stimuli) Lungs: Other (ronchi) Abdomen: Normal Bowel Sounds, Soft Extremities: Other (2+ edema) Results/Procedures Lab Laboratory Tests 09/18/20 18:45: Glucometer 94 09/19/20 00:16: Glucometer 92 09/19/20 03:35: White Blood Count 7.6, Red Blood Count 2.79L, Hemoglobin 8.3L, Hematocrit 26L, Mean Corpuscular Volume 95, Mean Corpuscular Hemoglobin 30, Mean Corpuscular Hemoglobin Concent 31L, Red Cell Distribution Width 15.1H, Platelet Count 288, Mean Platelet Volume 9.3, Immature Granulocyte % (Auto) 0, Neutrophils (%) (Auto) 58, Lymphocytes (%) (Auto) 26, Monocytes (%) (Auto) 7, Eosinophils (%) (Auto) 9, Basophils (%) (Auto) 0, Neutrophils # (Auto) 4.4, Lymphocytes # (Auto) 1.9, Monocytes # (Auto) 0.5, Eosinophils # (Auto) 0.7H, Basophils # (Auto) 0.0, Immature Granulocyte # (Auto) 0.0, Sodium Level 146H, Potassium Level 4.2, Chl oride Level 112H, Carbon Dioxide Level 26, Anion Gap 8, Blood Urea Nitrogen 21H, Creatinine 2.28H, Estimat Glomerular Filtration Rate 36, BUN/Creatinine Ratio 9, Glucose Level 99, Calcium Level 8.3L, Phosphorus Level 3.3, Magnesium Level 1.6, Triglycerides Level 57 09/19/20 03:50: Blood Gas Puncture Site L RADIAL, Blood Gas Patient Temperature 36.6, Arterial Blood pH 7.49H, Arterial Blood Partial Pressure CO2 34L, Arterial Blood Partial Pressure O2 68L, Arterial Blood HCO3 26, Arterial Blood Total CO2 26.7, Arterial Blood Oxygen Saturation 95, Arterial Blood Base Excess 2.3, Ruddy Test NO, Blood Gas Ventilator Setting YES, Blood Gas Inspired Oxygen NA Microbiology 09/13/20 Gram Stain - Final, Complete 09/13/20 Sputum Culture - Final, Complete Acinetobacter baumannii/c. com Usual upper respiratory fredis 09/12/20 Blood Culture - Final, Complete No growth 09/12/20 Urine Culture - Final, Complete YEAST Assessment/Plan Assessment/Plan (1) Sepsis Status: Acute Assessment & Plan: Secondary to cellulitis/osteomyelitis/UTI. Urine culture with klebsiella and yeast- on fluconazole and zosyn, sputum culture with acinetobacter. On linezolid. 09/17 acinetobater is resistant, antibiotics changed to doxycycline and meropenem 09/19 minocycline ordered in and started this am Qualifiers: Qualified Codes: A41.9 - Sepsis, unspecified organism (2) Osteomyelitis of coccyx Status: Acute Assessment & Plan: Severe with wound overlying and friable bone. Not treatable with surgery. On linezolid and zosyn. 09/17 changed to doxycycline and meropenem as noted above 09/19- continue meropenem (3) Hyponatremia Status: Resolved (4) Paralytic syndrome, post-stroke Status: Chronic Assessment & Plan: No meaningful use of any extremities since stroke in Jun. (5) Acute kidney injury Status: Acute Assessment & Plan: Trending better, but still significant (6) Hypernatremia Status: Acute Assessment & Plan: Free water per G tube ordered per Dr. Ivan. 09/17 slight improvement, may need increased free water, will monitor tomorrow's lab 09/18 worsened again, will increase free water to 250 ml q4 09/19 better, continue current free water and monitor (7) Yeast UTI Status: Acute Assessment & Plan: On fluconazole. (8) Respiratory failure Status: Acute Assessment & Plan: Acute on chronic, has tracheostomy at baseline, but now requiring ventilation, on 30% FiO2 today. Appreciate Pulmonology recommendations. 09/17 changed to pressure support and anticipating changing to blow by oxygen soon. 09/18 remains stable on pressure support only 09/19 discussed with [facility] ICU physician and will try d/c ventilator support and go to supplemental oxygen today Qualifiers: Qualified Codes: J96.21 - Acute and chronic respiratory failure with hypoxia (9) Seizure as late effect of cerebrovascular accident (CVA) Status: Acute Assessment & Plan: Keppra started, improved. (10) Tracheostomy in place Status: Chronic (11) Gastrostomy tube in place Status: Chronic (12) DVT prophylaxis Status: Acute Assessment & Plan: SCDs, Hemoglobin trending down, 7.6 today. No pharmacologic prophylaxis. 09/18 hemoglobin stabilized, start enoxaparin (13) Goals of care, counseling/discussion Status: Acute Assessment & Plan: With marked underlying morbidity and severe wound that cannot be treated with surgery, prognosis for healing is poor. Will try to set up family meeting to discuss further. 09/17 family meeting this morning, discussed all the above issues. They express understanding about his overall senior care poor prognosis and do believe at some point changing goals of care to comfort care will be the best for him, and they will discuss further as a family. For now, will continue with current treatm ents. 09/18 updated sister via telephone, she stated they are continuing to discuss and believe they will have some further decisions soon, continuing current management for now. 09/19 updated sister via telephone, no changes in plan today. PROMISE BEGUM MD Sep 19, 2020 11:08
[2020-09-19 11:16] LABS: ABG BASE EXCESS 3.2 MMOL/L (-2.5-2.5); ABG OXYGEN SATURATION 96 % (94-100); ABG PCO2 36 MMHG (35-45); ABG PH 7.48 (7.37-7.43); ABG PO2 73 MMHG (79-93); ABG TCO2 27.7 MMOL/L (21.0-31.0)
[2020-09-19 11:18] LABS: ALLENS TEST Y; INSPIRED O2 25%; PATIENT TEMP 37; VENTILATOR YES
[2020-09-19] MEDS: LACTATED RINGERS 1,000 ML IV SCH (12:50)
[2020-09-19] MEDS: FLUCONAZOLE 100 MG/50 ML 50 ML IV SCH (19:51)
[2020-09-19] MEDS: MINOCYCLINE 100 MG PEG SCH (20:01)
[2020-09-20] VITALS (25 sets, daily range): BP systolic 119–144; BP diastolic 76–101
[2020-09-20] MEDS: RT-ALBUTEROL/IPRATROPIUM 3 ML (DUONEB) VIAL INH SCH ×6 (01:45→20:50)
[2020-09-20 01:53] LABS: BASOPHILS % (AUTO) 0 % (0-10); EOSINOPHILS # (AUTO) 0.8 10^3/uL (0.0-0.3); EOSINOPHILS % (AUTO) 11 % (0-10); HEMATOCRIT 26 % (40-54); HEMOGLOBIN 8.2 g/dL (13.3-17.7); LYMPHOCYTES % (AUTO) 26 % (12-44); MEAN CORPUSCULAR HEMOGLOBIN 30 pg (25-34); MEAN CORPUSCULAR HGB CONC 31 g/dL (32-36); MEAN CORPUSCULAR VOLUME 95 fL (80-99); MEAN PLATELET VOLUME 9.1 fL (9.0-12.2); MONOCYTES # (AUTO) 0.6 10^3/uL (0.0-1.0); MONOCYTES % (AUTO) 7 % (0-12); NEUTROPHILS # (AUTO) 4.3 10^3/uL (1.8-7.8); NEUTROPHILS % (AUTO) 56 % (42-75); PLATELET COUNT 278 10^3/uL (130-400); WHITE BLOOD COUNT 7.7 10^3/uL (4.3-11.0)
[2020-09-20 02:13] LABS: CALCIUM 8.3 MG/DL (8.5-10.1); CREATININE SERUM 2.1 MG/DL (0.60-1.30); MAGNESIUM 3.6 MG/DL (1.6-2.4); PHOSPHORUS 3.7 MG/DL (2.3-4.7); POTASSIUM 4.1 MMOL/L (3.6-5.0)
[2020-09-20] MEDS: POTASSIUM CL 10MEQ/50ML IVPB 50 ML IV SCH (02:14)
[2020-09-20] MEDS: KCL 20 MEQ TAB (K-DUR) PO SCH (02:14)
[2020-09-20] MEDS: HYDROcodone/APAP 5 MG/325 MG (LORTAB) TAB PEG SCH ×4 (02:17→21:44)
[2020-09-20] MEDS: MAGNESIUM 1 GM/100 ML IVPB 100 ML IV SCH (02:49)
[2020-09-20] MEDS: inSUlin ASPART (NovoLOG) 1 UNIT/0.01 ML (CHARGE PER UNIT) SC SCH ×3 (06:20→18:56)
--- NOTE | 2020-09-20 07:37 | Diagnostic Imaging Report ---
Reason for examination: Respiratory distress. Semiupright AP portable chest was obtained and compared to yesterday. Low lung volumes are again noted with a stable tracheostomy and right subclavian central line. Bibasilar atelectasis versus infiltrate slightly improved on the right base. No effusions, heart failure or pneumothorax. IMPRESSION: 1. Low lung volumes with bibasilar atelectasis which is mildly improved in the right base today. Dictated by: Dictated on workstation # [id number]
[2020-09-20] MEDS: amLODIPine 10 MG (NORVASC) TAB PEG SCH (08:41)
[2020-09-20] MEDS: LACTOBACILLUS ACIDOPHILUS (PROBIOTIC) CAPSULE PEG SCH ×2 (08:41→21:44)
[2020-09-20] MEDS: meTOprolol TARTRATE 50 MG (LOPRESSOR) TAB PEG SCH ×2 (08:41→21:36)
[2020-09-20] MEDS: FOLIC ACID 1 MG TAB PEG SCH (08:41)
[2020-09-20] MEDS: THIAMINE 100 MG (VITAMIN B-1) TAB PEG SCH ×2 (08:41→21:44)
[2020-09-20] MEDS: FAMOTIDINE 20 MG (PEPCID) TABLET PEG SCH (08:41)
[2020-09-20] MEDS: CYANOCOBALAMIN 1,000 MCG (VITAMIN B-12) TABLET PEG SCH (08:41)
[2020-09-20] MEDS: MEROPENEM 2,000 MG in NS (IVPB) 100 ML IV SCH (08:41)
[2020-09-20] MEDS: LACTATED RINGERS 1,000 ML IV SCH (08:42)
[2020-09-20] MEDS: MINOCYCLINE 100 MG PEG SCH ×2 (08:42→21:44)
--- NOTE | 2020-09-20 09:00 | Progress Note ---
Subjective Subjective/Events-last exam Afebrile, no acute events. Now on vapotherm via trach collar. Objective Exam Last Set of Vital Signs Vital Signs Date Time Temp Pulse Resp B/P (MAP) Pulse Ox O2 Delivery O2 Flow Rate FiO2 09/20/20 08:00 101 28 122/76 (91) 93 Trach Collar 20.00 35.00 09/20/20 07:27 35 09/20/20 07:26 37.0 Capillary Refill : Less Than 3 Seconds I&O Intake and Output 09/20/20 00:00 Intake Total 2550 ml Output Total 6650 ml Balance -4100 ml Intake Oral 0 ml Tube Feeding 1050 ml Other 1500 ml Output Urine Total 6450 ml Stool Total 200 ml General: Other (opened eyes to touch) Lungs: Clear to Auscultation Heart: Regular Rate Abdomen: Normal Bowel Sounds, Soft Extremities: Other (1+ edema, hands and feet) Results/Procedures Lab Laboratory Tests 09/19/20 11:00: Blood Gas Puncture Site Left Rad, Blood Gas Patient Temperature 37, Arterial Blood pH 7.48H, Arterial Blood Partial Pressure CO2 36, Arterial Blood Partial Pressure O2 73L, Arterial Blood HCO3 27, Arterial Blood Total CO2 27.7, Arterial Blood Oxygen Saturation 96, Arterial Blood Base Excess 3.2H, Ruddy Test Y, Blood Gas Ventilator Setting YES, Blood Gas Inspired Oxygen 25% 09/19/20 11:53: Glucometer 96 09/19/20 18:47: Glucometer 90 09/19/20 23:01: Glucometer 103 09/20/20 01:40: White Blood Count 7.7, Red Blood Count 2.77L, Hemoglobin 8.2L, Hematocrit 26L, Mean Corpuscular Volume 95, Mean Corpuscular Hemoglobin 30, Mean Corpuscular Hemoglobin Concent 31L, Red Cell Distribution Width 15.3H, Platelet Count 278, Mean Platelet Volume 9.1, Immature Granulocyte % (Auto) 0, Neutrophils (%) (Auto) 56, Lymphocytes (%) (Auto) 26, Monocytes (%) (Auto) 7, Eosinophils (%) (Auto) 11H, Basophils (%) (Auto) 0, Neutrophils # (Auto) 4.3, Lymphocytes # (Auto) 2.0, Monocytes # (Auto) 0.6, Eosinophils # (Auto) 0.8H, Basophils # (Auto) 0.0, Immature Granulocyte # (Auto) 0.0, Sodium Level 148H, Potassium Level 4.1, Chloride Level 111H, Carbon Dioxide Level 26, Anion Gap 11, Blood Urea Nitrogen 23H, Creatinine 2.10H, Estimat Glomerular Filtration Rate 40, BUN/Creatinine Ratio 11, Glucose Level 101, Calcium Level 8.3L, Phosphorus Level 3.7, Magnesium Level 3.6H Microbiology 09/13/20 Gram Stain - Final, Complete 09/13/20 Sputum Culture - Final, Complete Acinetobacter baumannii/c. com Usual upper respiratory fredis 09/12/20 Blood Culture - Final, Complete No growth 09/12/20 Urine Culture - Final, Complete YEAST Assessment/Plan Assessment/Plan (1) Sepsis Status: Acute Assessment & Plan: Secondary to cellulitis/osteomyelitis/UTI. Urine culture with klebsiella and yeast- on fluconazole and zosyn, sputum culture with acinetobacter. On linezolid. 09/17 acinetobater is resistant, antibiotics changed to doxycycline and meropenem 09/19 minocycline ordered in and started this am Qualifiers: Qualified Codes: A41.9 - Sepsis, unspecified organism (2) Osteomyelitis of coccyx Status: Acute Assessment & Plan: Severe with wound overlying and friable bone. Not treatable with surgery. On linezolid and zosyn. 09/17 changed to doxycycline and meropenem as noted above 09/19- continue meropenem 09/20- d/c meropenem and continue minocycline (3) Hyponatremia Status: Resolved (4) Paralytic syndrome, post-stroke Status: Chronic Assessment & Plan: No meaningful use of any extremities since stroke in Jun. (5) Acute kidney injury Status: Acute Assessment & Plan: Trending better, but still significant (6) Hypernatremia Status: Acute Assessment & Plan: Free water per G tube ordered per Dr. Ivan. 09/17 slight improvement, may need increased free water, will monitor tomorrow's lab 09/18 worsened again, will increase free water to 250 ml q4 09/19 better, continue current free water and monitor 09/20 elevated again, increase free water to 300 ml q4 (7) Yeast UTI Status: Acute Assessment & Plan: Completed course of fluconazole. (8) Respiratory failure Status: Acute Assessment & Plan: Acute on chronic, has tracheostomy at baseline, but now requiring ventilation, on 30% FiO2 today. Appreciate Pulmonology recommendations. 09/17 changed to pressure support and anticipating changing to blow by oxygen soon. 09/18 remains stable on pressure support only 09/19 discussed with [facility] ICU physician and will try d/c ventilator support and go to supplemental oxygen today 09/20 now on vapotherm at 20 liters with FiO2 35% via trach collar. Qualifiers: Qualified Codes: J96.21 - Acute and chronic respiratory failure with hypoxia (9) Seizure as late effect of cerebrovascular accident (CVA) Status: Acute Assessment & Plan: Keppra started, improved. (10) Tracheostomy in place Status: Chronic (11) Gastrostomy tube in place Status: Chronic (12) DVT prophylaxis Status: Acute Assessment & Plan: SCDs, Hemoglobin trending down, 7.6 today. No pharmacologic prophylaxis. 09/18 hemoglobin stabilized, start enoxaparin (13) Goals of care, counseling/discussion Status: Acute Assessment & Plan: With marked underlying morbidity and severe wound that cannot be treated with surgery, prognosis for healing is poor. Will try to set up family meeting to discuss further. 09/17 family meeting this morning, discussed all the above issues. They express understanding about his overall senior care poor prognosis and do believe at some point changing goals of care to comfort care will be the best for him, and they will discuss further as a family. For now, will continue with current treatments. 09/18 updated sister via telephone, she stated they are continuing to discuss and believe they will have some further decisions soon, continuing current manag ement for now. 09/19 updated sister via telephone, no changes in plan today. 09/20 discussed status with sister- at this point if he is able to wean to simple oxygen, there will not be any care that has to be inpatient, so they will be thinking about where and what goals (ie continued antibiotics, etc vs a comfort focus) they will pursue assuming he continues to remain stable. PROMISE BEGUM MD Sep 20, 2020 09:00
[2020-09-20] MEDS: ENOXAPARIN 40 MG/0.4 ML (LOVENOX) SYR SQ SCH (09:55)
[2020-09-20] MEDS: morphine INJ 10 MG/ML 1ML (SYR OR VIAL) IVP PRN (10:34)
[2020-09-21] VITALS (29 sets, daily range): BP systolic 109–136; BP diastolic 74–97
[2020-09-21] MEDS: RT-ALBUTEROL/IPRATROPIUM 3 ML (DUONEB) VIAL INH SCH ×6 (01:21→22:43)
[2020-09-21] MEDS: HYDROcodone/APAP 5 MG/325 MG (LORTAB) TAB PEG SCH ×4 (03:00→21:08)
[2020-09-21 04:12] LABS: BASOPHILS % (AUTO) 1 % (0-10); EOSINOPHILS % (AUTO) 12 % (0-10); HEMATOCRIT 26 % (40-54); HEMOGLOBIN 8.2 g/dL (13.3-17.7); LYMPHOCYTES # (AUTO) 2.1 10^3/uL (1.0-4.0); LYMPHOCYTES % (AUTO) 26 % (12-44); MEAN CORPUSCULAR HEMOGLOBIN 30 pg (25-34); MEAN CORPUSCULAR HGB CONC 32 g/dL (32-36); MEAN CORPUSCULAR VOLUME 94 fL (80-99); MEAN PLATELET VOLUME 9.4 fL (9.0-12.2); MONOCYTES # (AUTO) 0.6 10^3/uL (0.0-1.0); MONOCYTES % (AUTO) 8 % (0-12); NEUTROPHILS # (AUTO) 4.4 10^3/uL (1.8-7.8); NEUTROPHILS % (AUTO) 55 % (42-75); PLATELET COUNT 305 10^3/uL (130-400); WHITE BLOOD COUNT 8.2 10^3/uL (4.3-11.0)
[2020-09-21 04:30] LABS: CALCIUM 8.4 MG/DL (8.5-10.1); CREATININE SERUM 1.9 MG/DL (0.60-1.30); MAGNESIUM 1.6 MG/DL (1.6-2.4); PHOSPHORUS 4.3 MG/DL (2.3-4.7); POTASSIUM 4.1 MMOL/L (3.6-5.0)
[2020-09-21] MEDS: inSUlin ASPART (NovoLOG) 1 UNIT/0.01 ML (CHARGE PER UNIT) SC SCH ×4 (05:04→16:46)
[2020-09-21] MEDS: POTASSIUM CL 10MEQ/50ML IVPB 50 ML IV SCH (05:59)
[2020-09-21] MEDS: KCL 20 MEQ TAB (K-DUR) PO SCH (06:11)
[2020-09-21] MEDS: MAGNESIUM 1 GM/100 ML IVPB 100 ML IV SCH ×2 (06:11→06:27)
[2020-09-21] MEDS: meTOprolol TARTRATE 50 MG (LOPRESSOR) TAB PEG SCH ×2 (07:43→21:08)
[2020-09-21] MEDS: ENOXAPARIN 40 MG/0.4 ML (LOVENOX) SYR SQ SCH (07:43)
[2020-09-21] MEDS: LACTOBACILLUS ACIDOPHILUS (PROBIOTIC) CAPSULE PEG SCH ×2 (07:43→21:08)
[2020-09-21] MEDS: FAMOTIDINE 20 MG (PEPCID) TABLET PEG SCH (07:43)
[2020-09-21] MEDS: THIAMINE 100 MG (VITAMIN B-1) TAB PEG SCH ×2 (07:44→21:00)
[2020-09-21] MEDS: FOLIC ACID 1 MG TAB PEG SCH (07:44)
[2020-09-21] MEDS: CYANOCOBALAMIN 1,000 MCG (VITAMIN B-12) TABLET PEG SCH (07:44)
[2020-09-21] MEDS: amLODIPine 10 MG (NORVASC) TAB PEG SCH (07:45)
[2020-09-21] MEDS: SCOPOLAMINE 1.5 MG (TRANSDERM-SCOP) PATCH TD SCH (07:45)
[2020-09-21] MEDS: MINOCYCLINE 100 MG PEG SCH ×2 (07:47→21:00)
[2020-09-21] MEDS: LACTATED RINGERS 1,000 ML IV SCH (09:07)
--- NOTE | 2020-09-21 09:25 | Diagnostic Imaging Report ---
Indication: Dyspnea. Comparison: 09/20/2020. Discussion: Single portable upright view of the chest was obtained. Tracheostomy appliance and right-sided central venous catheter are stable. The patient's hand obscures the left lung base. There appears to be some improved aeration of the lung bases with decreasing atelectasis or pneumonia. No pleural fluid or pneumothorax. No osseous abnormality. Impression: 1. Improved aeration of the lung bases. Dictated by: Dictated on workstation # [id number]
--- NOTE | 2020-09-21 11:21 | Progress Note - Hospitalist ---
Subjective HPI/CC On Admission Date Seen by Provider: September 21, 2020 Time Seen by Provider: 08:45 This 55-year-old gentleman [facility] the [facility] a telehealth visit with a wound care provider. He has a deep sacral wound with concern for possible osteomyelitis. 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 He is nonverbal. He does respond some to stimuli but does not meaningfully communicate. He has a tracheostomy and PEG tube. He also has necrotic decubitus ulcers on his heels. He had a stay at [place] [facility]. The wound care provider felt he needed assessment in the emergency room with possible admission for IV antibiotics and surgery. Upon my arrival family were not present and the patient noted to be in a persistent vegetative state does not orient to voice or follow commands. Does not appear to be in acute distress. Subjective/Events-last exam RoquePatient unresponsive which is been his baseline ever since the massive stroke reportedly in June appears to be in no acute distress. Objective Exam Vital Signs Vital Signs Date Time Temp Pulse Resp B/P (MAP) Pulse Ox O2 Delivery O2 Flow Rate FiO2 09/21/20 10:00 85 18 117/78 (91) 99 Mechanical Ventilator 50.00 09/21/20 09:48 50 09/21/20 09:05 35.8 Capillary Refill : Less Than 3 Seconds General Appearance: No Apparent Distress Respiratory: No Accessory Muscle Use, No Respiratory Distress, Other (Slightly coarse breath sounds bilaterally without wheezing rales or rhonchi.) Results/Procedures Lab Laboratory Tests 09/21/20 04:06 Patient resulted labs reviewed. Assessment/Plan Assessment and Plan Assess & Plan/Chief Complaint 1. Osteomyelitis with secondary sepsis Not severe patient is extremely poor can didate for surgery and would expect wound recurrence even if they were able to close the defect with plastic surgery after the extensive sacral debridement that would be necessary. This was communicated to the patient's family by the emergency room physician and the surgeon last night however they still requested admission with IV antibiotics which we will continue and they are still insistent on full CODE STATUS. I have not yet had the opportunity to discuss Mr. Lewis's unfortunate circumstances for which antibiotic cure alone is highly unlikely. Sepsis has resolved and the patient has likely received maximum hospital benefit would consider discharge on Augmentin for indefinite use unless previous wound cultures have suggested the possibility of a better option. 2. Persistent vegetative state following a massive CVA in June of this year. 3. Respiratory failure improving on trach collar no evidence of respiratory distress. POLA NAIDU MD September 21, 2020 11:21
[2020-09-22] VITALS (27 sets, daily range): BP systolic 111–136; BP diastolic 74–97
[2020-09-22] MEDS: RT-ALBUTEROL/IPRATROPIUM 3 ML (DUONEB) VIAL INH SCH ×6 (02:21→21:54)
[2020-09-22 04:45] LABS: BASOPHILS % (AUTO) 0 % (0-10); EOSINOPHILS % (AUTO) 12 % (0-10); HEMATOCRIT 27 % (40-54); HEMOGLOBIN 8.6 g/dL (13.3-17.7); LYMPHOCYTES % (AUTO) 23 % (12-44); MEAN CORPUSCULAR HEMOGLOBIN 30 pg (25-34); MEAN CORPUSCULAR HGB CONC 32 g/dL (32-36); MEAN CORPUSCULAR VOLUME 92 fL (80-99); MEAN PLATELET VOLUME 9.1 fL (9.0-12.2); MONOCYTES # (AUTO) 0.6 10^3/uL (0.0-1.0); MONOCYTES % (AUTO) 7 % (0-12); NEUTROPHILS # (AUTO) 5.2 10^3/uL (1.8-7.8); NEUTROPHILS % (AUTO) 58 % (42-75); PLATELET COUNT 317 10^3/uL (130-400)
[2020-09-22 05:05] LABS: CALCIUM 8.5 MG/DL (8.5-10.1); CREATININE SERUM 1.57 MG/DL (0.60-1.30); PHOSPHORUS 4.3 MG/DL (2.3-4.7); POTASSIUM 3.7 MMOL/L (3.6-5.0)
[2020-09-22] MEDS: inSUlin ASPART (NovoLOG) 1 UNIT/0.01 ML (CHARGE PER UNIT) SC SCH ×4 (05:39→16:58)
[2020-09-22] MEDS: KCL 20 MEQ TAB (K-DUR) PO SCH (06:13)
[2020-09-22] MEDS: MAGNESIUM 1 GM/100 ML IVPB 100 ML IV SCH (06:13)
[2020-09-22] MEDS: HYDROcodone/APAP 5 MG/325 MG (LORTAB) TAB PEG SCH ×4 (06:13→20:32)
[2020-09-22] MEDS: POTASSIUM CL 10MEQ/50ML IVPB 50 ML IV SCH (06:13)
[2020-09-22] MEDS: FOLIC ACID 1 MG TAB PEG SCH (08:06)
[2020-09-22] MEDS: meTOprolol TARTRATE 50 MG (LOPRESSOR) TAB PEG SCH ×2 (08:06→20:32)
[2020-09-22] MEDS: CYANOCOBALAMIN 1,000 MCG (VITAMIN B-12) TABLET PEG SCH (08:06)
[2020-09-22] MEDS: LACTOBACILLUS ACIDOPHILUS (PROBIOTIC) CAPSULE PEG SCH ×2 (08:06→20:32)
[2020-09-22] MEDS: ENOXAPARIN 40 MG/0.4 ML (LOVENOX) SYR SQ SCH (08:07)
[2020-09-22] MEDS: amLODIPine 10 MG (NORVASC) TAB PEG SCH (08:07)
[2020-09-22] MEDS: THIAMINE 100 MG (VITAMIN B-1) TAB PEG SCH ×2 (08:07→20:30)
[2020-09-22] MEDS: FAMOTIDINE 20 MG (PEPCID) TABLET PEG SCH (08:07)
[2020-09-22] MEDS: MINOCYCLINE 100 MG PEG SCH ×2 (08:08→20:32)
--- NOTE | 2020-09-22 08:11 | Diagnostic Imaging Report ---
Indication: Dyspnea. Comparison: 09/21/2020. Discussion: Single portable upright view of the chest was obtained. Exam is limited due to patient positioning and poor inspiratory effort. There is new opacity within the left upper lobe though this could represent artifact from overlying soft tissues. Infiltrate is not excluded. Tracheostomy appliance and right-sided central line are stable. No pleural fluid or pneumothorax is visualized. Impression: 1. Limited exam due to positioning. There may be a new infiltrate within the left upper lobe though this is somewhat obscured due to other overlying soft tissues. Recommend follow-up two views of the chest with good inspiratory effort when able. Dictated by: Dictated on workstation # [id number]
[2020-09-22] MEDS: LACTATED RINGERS 1,000 ML IV SCH (09:46)
[2020-09-22] MEDS: aCETylcysteine 20% (MUCOMYST) 30ML SOLN VIAL INH SCH ×2 (09:57→21:54)
--- NOTE | 2020-09-22 12:43 | Progress Note - Hospitalist ---
Subjective HPI/CC On Admission Date Seen by Provider: September 22, 2020 Time Seen by Provider: 07:00 This 55-year-old gentleman presents to the emergency room via EMS from the [facility] after a telehealth visit with a wound care provider. He has a deep sacral wound with concern for possible osteomyelitis. 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 He is nonverbal. He does respond some to stimuli but does not meaningfully communicate. He has a tracheostomy and PEG tube. He also has necrotic decubitus ulcers on his heels. He had a stay at [place] before being admitted to the halfway. The wound care provider felt he needed assessment in the emergency room with possible admission for IV antibiotics and surgery. Upon my arrival family were not present and the patient noted to be in a persistent vegetative state does not orient to voice or follow commands. Does not appear to be in acute distress. Subjective/Events-last exam Unresponsive appears to be in no acute distress. Objective Exam Vital Signs Vital Signs Date Time Temp Pulse Resp B/P (MAP) Pulse Ox O2 Delivery O2 Flow Rate FiO2 09/22/20 12:00 94 30 111/81 (91) 96 Vapotherm 15.00 30.00 09/22/20 09:59 25 09/22/20 08:06 36.4 Capillary Refill : Less Than 3 Seconds General Appearance: No Apparent Distress, Chronically ill Respiratory: Other (Coarse breath sounds unchanged no focal consolidative findings to auscultation.) Cardiovascular: Regular Rate, Rhythm, No Murmur Results/Procedures Lab Laboratory Tests 09/22/20 04:37 Patient resulted labs reviewed. Assessment/Plan Assessment and Plan Assess & Plan/Chief Complaint 1. Osteomyelitis with secondary sepsis Not severe patient is Not a candidate for surgery cure on antibiotics unlikely continue indefinitely.. 2. Persistent vegetative state following a massive CVA in June of this year. 3. Respiratory failure improving on trach collar no evidence of respiratory distress. Critical Care Critically Ill Patient POLA NAIDU MD September 22, 2020 12:43
[2020-09-23] VITALS (25 sets, daily range): BP systolic 108–143; BP diastolic 24–103
[2020-09-23] MEDS: inSUlin ASPART (NovoLOG) 1 UNIT/0.01 ML (CHARGE PER UNIT) SC SCH ×4 (00:04→18:45)
[2020-09-23] MEDS: RT-ALBUTEROL/IPRATROPIUM 3 ML (DUONEB) VIAL INH SCH ×6 (01:35→21:45)
[2020-09-23 03:42] LABS: BASOPHILS # (AUTO) 0.1 10^3/uL (0.0-0.1); BASOPHILS % (AUTO) 1 % (0-10); EOSINOPHILS % (AUTO) 10 % (0-10); HEMATOCRIT 26 % (40-54); HEMOGLOBIN 8.5 g/dL (13.3-17.7); LYMPHOCYTES # (AUTO) 2.3 10^3/uL (1.0-4.0); LYMPHOCYTES % (AUTO) 23 % (12-44); MEAN CORPUSCULAR HEMOGLOBIN 31 pg (25-34); MEAN CORPUSCULAR HGB CONC 33 g/dL (32-36); MEAN CORPUSCULAR VOLUME 93 fL (80-99); MEAN PLATELET VOLUME 9.2 fL (9.0-12.2); MONOCYTES # (AUTO) 0.7 10^3/uL (0.0-1.0); MONOCYTES % (AUTO) 8 % (0-12); NEUTROPHILS # (AUTO) 5.6 10^3/uL (1.8-7.8); NEUTROPHILS % (AUTO) 58 % (42-75); PLATELET COUNT 328 10^3/uL (130-400); WHITE BLOOD COUNT 9.7 10^3/uL (4.3-11.0)
[2020-09-23 03:57] LABS: CALCIUM 8.4 MG/DL (8.5-10.1); CREATININE SERUM 1.49 MG/DL (0.60-1.30); MAGNESIUM 1.7 MG/DL (1.6-2.4); PHOSPHORUS 4.2 MG/DL (2.3-4.7); POTASSIUM 3.7 MMOL/L (3.6-5.0)
[2020-09-23] MEDS: HYDROcodone/APAP 5 MG/325 MG (LORTAB) TAB PEG SCH ×4 (03:58→22:00)
--- NOTE | 2020-09-23 04:11 | Pulmonary Progress Note ---
Subjective Time Seen by a Provider: 04:06 Subjective/Events-last exam Pt is currently on Spont mode PS 5 and PEEP of 5. Sepsis Event Evaluation Height, Weight, BMI Height: '" Weight: lbs. oz. kg; 33.00 BMI Method: Exam Exam Vital Signs Date Time Temp Pulse Resp B/P (MAP) Pulse Ox O2 Delivery O2 Flow Rate FiO2 09/23/20 01:35 94 28 100 30 09/22/20 23:59 94 Trach Collar 10.00 25 09/22/20 23:00 90 22 136/94 (108) 100 Vapotherm 15.00 30.00 09/22/20 22:00 87 21 127/86 (100) 100 Vapotherm 15.00 30.00 09/22/20 21:55 86 23 100 30 09/22/20 21:00 94 21 132/87 (102) 94 Vapotherm 15.00 30.00 09/22/20 20:00 94 Trach Collar 10.00 25 09/22/20 20:00 98 22 130/90 (103) 97 Vapotherm 15.00 30.00 09/22/20 19:00 94 09/22/20 19:00 98 20 128/87 (101) 95 Vapotherm 09/22/20 18:00 101 22 115/80 (92) 95 Vapotherm 15.00 30.00 09/22/20 17:42 95 Vapotherm 10.00 25 09/22/20 17:00 98 30 120/79 (93) 95 Vapotherm 15.00 30.00 09/22/20 16:00 94 Trach Collar 15.00 25 09/22/20 16:00 98 27 113/76 (88) 96 Vapotherm 15.00 30.00 09/22/20 15:00 98 25 111/74 (86) 95 Vapotherm 15.00 30.00 09/22/20 14:28 37.3 09/22/20 14:19 97 Vapotherm 10.00 25 09/22/20 14:00 103 32 125/89 (101) 94 Vapotherm 15.00 30.00 09/22/20 13:00 101 33 134/97 (109) 95 Vapotherm 15.00 30.00 09/22/20 12:42 94 09/22/20 12:00 94 Trach Collar 15.00 25 09/22/20 12:00 94 30 111/81 (91) 96 Vapotherm 15.00 30.00 09/22/20 11:00 92 23 116/80 (92) 95 Vapotherm 15.00 30.00 09/22/20 10:00 93 21 120/81 (94) 97 Vapotherm 15.00 30.00 09/22/20 09:59 97 Vapotherm 10.00 25 09/22/20 09:52 97 Vapotherm 10.00 25 09/22/20 09:00 88 22 128/93 (105) 100 Vapotherm 15.00 30.00 09/22/20 08:06 36.4 Vapotherm 15.00 30.00 09/22/20 08:00 116 132/91 (105) 100 Mechanical Ventilator 21.00 09/22/20 08:00 94 Trach Collar 15.00 25 09/22/20 07:00 100 09/22/20 07:00 101 19 132/91 (105) 100 Mechanical Ventilator 21.00 09/22/20 06:04 102 27 96 30 09/22/20 06:00 102 28 134/94 (107) 94 Mechanical Ventilator 21.00 09/22/20 05:00 101 23 124/82 (96) 95 Mechanical Ventilator 21.00 I & O 09/23/20 07:00 Intake Total 2435 ml Output Total 2550 ml Balance -115 ml Height & Weight Height: '" Weight: lbs. oz. kg; 33.00 BMI Method: General Appearance: No Apparent Distress, Chronically ill HEENT: Other (Mucous membranes moist. Purulent drainage from the right eye with a filmy appearance to the eye surface and slight injection of erythema.) Neck: Normal Inspection Respiratory: Other (Coarse breath sounds unchanged no focal consolidative findings to auscultation.) Cardiovascular: Regular Rate, Rhythm, No Murmur Capillary Refill: Less Than 3 Seconds Gastrointestinal: normal bowel sounds, non tender, soft Extremity: Normal Inspection, No Pedal Edema Neurologic/Psychiatric: Aphasia, Motor Weakness, Sensory Deficit, Other (quadrapelegic ) Skin: Warm/Dry, Other (Necrotic decubitus ulcers on both heels. Very deep sacral wound.) Lymphatic: No Adenopathy Results Lab Laboratory Tests 09/22/20 04:37 09/23/20 03:35 Assessment/Plan Assessment/Plan Chronic respiratory failure with chronic tracheostomy -Pt is still currently on Ventilator -Pt is on Spont mode with PS 5 and peep of 5 -Will place pt on Trach collar and repeat ABG 30min after change. Then back to vent with spont mode HS and PRN. -Pt is off sedation -Admitted 09/06 -Labs pending Anemia - Continue to monitor - occult stool negative Actinobacter colonization Metabolic lactic acidosis - improving -IVF -Monitor Osteomyelitis - 2/2 grade 4 sacral decubitus ulcer Continue IV zosyn surgery following ATN Zyvox Labs pending -May need to transfer for nephrology b/l decubitus calcaneal ulcers Wound care NIDDM chronic UTI 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 Tube feeding. TREY FIELDS DO September 23, 2020 04:11
[2020-09-23] MEDS: MAGNESIUM 1 GM/100 ML IVPB 100 ML IV SCH ×3 (04:15→06:22)
[2020-09-23] MEDS: POTASSIUM CL 10MEQ/50ML IVPB 50 ML IV SCH (04:15)
[2020-09-23] MEDS: KCL 20 MEQ TAB (K-DUR) PO SCH (04:15)
[2020-09-23] MEDS: aCETylcysteine 20% (MUCOMYST) 30ML SOLN VIAL INH SCH ×2 (06:31→18:28)
--- NOTE | 2020-09-23 07:13 | Diagnostic Imaging Report ---
EXAMINATION: Chest 1 view HISTORY: Respiratory distress. COMPARISON: 09/22/2020. FINDINGS: Stable configuration of the tracheostomy and right central line. Stable low lung volumes with slight increase in perihilar and basilar opacities bilaterally. No large pleural effusion or pneumothorax. Stable cardiac silhouette. No acute osseous abnormalities. IMPRESSION: 1. Slightly increased perihilar and basilar opacities bilaterally, which may represent increasing atelectasis or infection. 2. Stable support devices. Dictated by: Dictated on workstation # [id number]
[2020-09-23] MEDS: MINOCYCLINE 100 MG PEG SCH ×2 (09:25→21:58)
[2020-09-23] MEDS: amLODIPine 10 MG (NORVASC) TAB PEG SCH (09:26)
[2020-09-23] MEDS: THIAMINE 100 MG (VITAMIN B-1) TAB PEG SCH ×2 (09:26→21:59)
[2020-09-23] MEDS: LACTOBACILLUS ACIDOPHILUS (PROBIOTIC) CAPSULE PEG SCH ×2 (09:26→21:59)
[2020-09-23] MEDS: meTOprolol TARTRATE 50 MG (LOPRESSOR) TAB PEG SCH ×2 (09:26→22:00)
[2020-09-23] MEDS: ENOXAPARIN 40 MG/0.4 ML (LOVENOX) SYR SQ SCH (09:26)
[2020-09-23] MEDS: FAMOTIDINE 20 MG (PEPCID) TABLET PEG SCH (09:26)
[2020-09-23] MEDS: CYANOCOBALAMIN 1,000 MCG (VITAMIN B-12) TABLET PEG SCH (09:26)
[2020-09-23] MEDS: FOLIC ACID 1 MG TAB PEG SCH (09:26)
[2020-09-23] MEDS: LACTATED RINGERS 1,000 ML IV SCH (09:27)
--- NOTE | 2020-09-23 10:51 | Progress Note - Hospitalist ---
Subjective HPI/CC On Admission Date Seen by Provider: September 23, 2020 Time Seen by Provider: 10:30 This 55-year-old gentleman presents to the emergency room via EMS from the half-way after a telehealth visit with a wound care provider. He has a deep sacral wound with concern for possible osteomyelitis. 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 He is nonverbal. He does respond some to stimuli but does not meaningfully communicate. He has a tracheostomy and PEG tube. He also has necrotic decubitus ulcers on his heels. He had a stay at [place] before being admitted to the half-way. The wound care provider felt he needed assessment in the emergency room with possible admission for IV antibiotics and surgery. Upon my arrival family were not present and the patient noted to be in a persistent vegetative state does not orient to voice or follow commands. Does not appear to be in acute distress. Subjective/Events-last exam Pt has had no change Upper respiratory wheezes with somewhat of a rattle will be managed with Levsin Updated mother, brother and sister and brother became quite heated and accusing all of us for withholding information because he had actually improved from a week and a half ago when his condition was dire that he has received intensive care management since that time and he has stabilized, but there is no cure for the decubitus ulcer on his sacrum that is stage four and osteomyelitis. He remains on Minocycline and although he is not on the vent he does have a trach and a peg tube and comatose from the stroke that caused the paraplegia. Overall family trying to decide where he will go since they dont want him to go to [facility]. Brother very volatile with his communication. I did speak with Ethics Chair Liv and she will gather the committee to discuss the case since he remains a full code and is comatose with a trach and a peg tube and pain and suffering will continue and he really needs to be in comfort care. Objective Exam Vital Signs Vital Signs Date Time Temp Pulse Resp B/P (MAP) Pulse Ox O2 Delivery O2 Flow Rate FiO2 09/24/20 05:00 93 20 119/88 (98) 100 Mechanical Ventilator 30.00 09/24/20 01:50 30 09/23/20 20:12 36.2 Capillary Refill : Less Than 3 Seconds General Appearance: No Apparent Distress, WD/WN, Chronically ill Respiratory: Rales, Wheezing Cardiovascular: Regular Rate, Rhythm Neurologic/Psychiatric: Other (comatose) Results/Procedures Lab Laboratory Tests 09/24/20 02:05 Patient resulted labs reviewed. Assessment/Plan Assessment and Plan Assess & Plan/Chief Complaint Assessment: VDRF Catastrophic CVA 07/14 Contractures Decubitus ulcer stage IV with osteomyelitis Prognosis poor Updated family in face to face meeting yesterday but no changes requested per family Futility assessed 09/15/20: Vent Abx Needs ethics committee evaluation 09/23/20: Updated family today Very difficult family conversation with Kate HAQUE Accusations by brother of patient of withholding information from him due to stability compared to 1.5 weeks ago [place]? Ethics consult Critical Care Critically Ill Patient Diagnosis/Problems Diagnosis/Problems (1) Sepsis Status: Acute Qualifiers: Sepsis type: sepsis due to unspecified organism Sepsis acute organ dysfunction status: without acute organ dysfunction Qualified Codes: A41.9 - Sepsis, unspecified organism (2) Decubitus ulcer, heel Status: Acute Qualifiers: Pressure injury stage: unspecified pressure injury stage Laterality: unspecified laterality Qualified Codes: L89.609 - Pressure ulcer of unspecified heel, unspecified stage (3) Hyponatremia Status: Resolved Resolution Date/Time: 09/16/20 @ 13:12 (4) Paralytic syndrome, post-stroke Status: Chronic MARI FRANKLIN DO September 23, 2020 10:51
[2020-09-23 14:47] LABS: ABG BASE EXCESS 1.8 MMOL/L (-2.5-2.5); ABG OXYGEN SATURATION 92 % (94-100); ABG PCO2 32 MMHG (35-45); ABG PO2 60 MMHG (79-93)
[2020-09-23 14:48] LABS: ALLENS TEST YES-POS; INSPIRED O2 25%; PATIENT TEMP 97.7; VENTILATOR NO
[2020-09-23] MEDS: HYOSCYAMINE 0.125 MG (LEVSIN) TAB SL PRN (15:14)
[2020-09-24] VITALS (25 sets, daily range): BP systolic 103–144; BP diastolic 63–105
[2020-09-24] MEDS: RT-ALBUTEROL/IPRATROPIUM 3 ML (DUONEB) VIAL INH SCH ×6 (01:50→22:17)
[2020-09-24] MEDS: HYDROcodone/APAP 5 MG/325 MG (LORTAB) TAB PEG SCH ×4 (01:58→20:34)
[2020-09-24 02:12] LABS: BASOPHILS # (AUTO) 0.1 10^3/uL (0.0-0.1); BASOPHILS % (AUTO) 1 % (0-10); EOSINOPHILS # (AUTO) 1.1 10^3/uL (0.0-0.3); EOSINOPHILS % (AUTO) 13 % (0-10); HEMATOCRIT 26 % (40-54); HEMOGLOBIN 8.5 g/dL (13.3-17.7); LYMPHOCYTES # (AUTO) 2.1 10^3/uL (1.0-4.0); LYMPHOCYTES % (AUTO) 26 % (12-44); MEAN CORPUSCULAR HEMOGLOBIN 30 pg (25-34); MEAN CORPUSCULAR HGB CONC 33 g/dL (32-36); MEAN CORPUSCULAR VOLUME 92 fL (80-99); MEAN PLATELET VOLUME 9.2 fL (9.0-12.2); MONOCYTES # (AUTO) 0.6 10^3/uL (0.0-1.0); MONOCYTES % (AUTO) 7 % (0-12); NEUTROPHILS # (AUTO) 4.5 10^3/uL (1.8-7.8); NEUTROPHILS % (AUTO) 53 % (42-75); PLATELET COUNT 322 10^3/uL (130-400); WHITE BLOOD COUNT 8.4 10^3/uL (4.3-11.0)
[2020-09-24 03:47] LABS: BUN/CREATININE RATIO 12; CALCIUM 8.3 MG/DL (8.5-10.1); CARBON DIOXIDE 24 MMOL/L (21-32); CHLORIDE 105 MMOL/L (98-107); CREATININE SERUM 1.17 MG/DL (0.60-1.30); GFR ESTIMATED > 60; GLUCOSE 94 MG/DL (70-105); MAGNESIUM 1.9 MG/DL (1.6-2.4); PHOSPHORUS 4.8 MG/DL (2.3-4.7); POTASSIUM 4.1 MMOL/L (3.6-5.0); SODIUM 138 MMOL/L (135-145)
[2020-09-24 03:48] LABS: BASOPHILS % (MANUAL) 1 %; EOSINOPHILS % (MANUAL) 15 %; LYMPHOCYTES % (MANUAL) 20 %; MONOCYTES % (MANUAL) 5 %; NEUTROPHILS % (MANUAL) 59 %
[2020-09-24 03:49] LABS: RBC MORPH NORMAL
[2020-09-24] MEDS: inSUlin ASPART (NovoLOG) 1 UNIT/0.01 ML (CHARGE PER UNIT) SC SCH ×4 (04:55→18:44)
--- NOTE | 2020-09-24 05:16 | Pulmonary Progress Note ---
Subjective Time Seen by a Provider: 05:13 Sepsis Event Evaluation Height, Weight, BMI Height: '" Weight: lbs. oz. kg; 33.00 BMI Method: Exam Exam Vital Signs Date Time Temp Pulse Resp B/P (MAP) Pulse Ox O2 Delivery O2 Flow Rate FiO2 09/24/20 05:00 93 20 119/88 (98) 100 Mechanical Ventilator 30.00 09/24/20 04:00 95 18 133/95 (108) 98 Mechanical Ventilator 30.00 09/24/20 03:00 86 18 128/91 (103) 94 Mechanical Ventilator 30.00 09/24/20 02:00 87 22 143/96 (112) 92 Mechanical Ventilator 30.00 09/24/20 01:50 86 21 94 30 09/24/20 01:00 85 09/24/20 01:00 84 18 144/97 (113) 94 Mechanical Ventilator 30.00 09/24/20 00:00 82 16 136/97 (110) 95 Mechanical Ventilator 30.00 09/23/20 23:00 90 25 135/94 (108) 93 Mechanical Ventilator 30.00 09/23/20 22:00 101 22 143/97 (112) 89 Mechanical Ventilator 30.00 09/23/20 21:45 Mechanical Ventilator 30.00 09/23/20 21:39 97 17 100 30 09/23/20 21:00 99 17 138/94 (109) 94 Vapotherm 10.00 25.00 09/23/20 20:12 36.2 09/23/20 20:00 97 21 138/98 (111) 99 Vapotherm 10.00 25.00 09/23/20 20:00 92 Mechanical Ventilator 30 09/23/20 19:00 97 09/23/20 19:00 97 22 138/96 (110) 95 Vapotherm 10.00 25.00 09/23/20 18:28 90 Vapotherm 10.00 30 09/23/20 18:00 93 25 139/103 (115) 91 Vapotherm 10.00 25.00 09/23/20 17:00 91 17 120/83 (95) 92 Vapotherm 10.00 25.00 09/23/20 16:00 92 Trach Collar 10.00 25 09/23/20 16:00 91 18 123/86 (98) 92 Vapotherm 10.00 25.00 09/23/20 15:00 89 21 127/79 (95) 92 Vapotherm 10.00 25.00 09/23/20 14:30 95 Vapotherm 10.00 25 09/23/20 14:00 86 22 121/82 (95) 94 Vapotherm 10.00 25.00 09/23/20 13:00 85 18 134/89 (104) 92 Vapotherm 10.00 25.00 09/23/20 13:00 85 09/23/20 12:25 92 Trach Collar 10.00 25 09/23/20 12:00 82 20 134/88 (103) 91 Vapotherm 10.00 25.00 09/23/20 11:05 96 Vapotherm 10.00 09/23/20 11:00 79 23 136/91 (106) 93 Vapotherm 10.00 25.00 09/23/20 10:00 81 12 108/77 (87) 93 Vapotherm 10.00 25.00 09/23/20 09:00 106 132/94 (107) 96 Vapotherm 10.00 25.00 09/23/20 08:11 100 Trach Collar 10.00 25 09/23/20 08:05 36.0 Vapotherm 10.00 25.00 09/23/20 08:00 93 33 130/97 (108) 100 Vapotherm 15.00 30.00 09/23/20 07:23 86 09/23/20 07:00 93 17 136/91 (106) 96 Vapotherm 15.00 30.00 09/23/20 06:32 96 Vapotherm 10.00 25 09/23/20 06:00 93 18 132/92 (105) 98 Vapotherm 15.00 30.00 I & O 09/24/20 07:00 Intake Total 2905 ml Output Total 2350 ml Balance 555 ml Height & Weight Height: '" Weight: lbs. oz. kg; 33.00 BMI Method: General Appearance: Chronically ill, Moderate Distress HEENT: Other (Mucous membranes moist. Purulent drainage from the right eye with a filmy appearance to the eye surface and slight injection of erythema.) Neck: Normal Inspection Respiratory: Crackles, Decreased Breath Sounds, Respiratory Distress Cardiovascular: Normal Peripheral Pulses, Tachycardia Capillary Refill: Less Than 3 Seconds Gastrointestinal: normal bowel sounds, non tender, soft Extremity: Normal Inspection, No Pedal Edema Neurologic/Psychiatric: Motor Weakness, Sensory Deficit Skin: Warm/Dry, Other (Necrotic decubitus ulcers on both heels. Very deep sacral wound.) Lymphatic: No Adenopathy Results Lab Laboratory Tests 09/23/20 03:35 09/24/20 02:05 Assessment/Plan Assessment/Plan Chronic respiratory failure with chronic tracheostomy -Pt is still currently on Ventilator -Pt is on Spont mode with PS 5 and peep of 5 -Will place pt on Trach collar and repeat ABG 30min after change. Then back to vent with spont mode HS and PRN. -Deflate trach cuff while off ventilator. 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 Tube feeding. Plan is for [facility] transfer today. TREY FIELDS DO September 24, 2020 05:15
[2020-09-24] MEDS: aCETylcysteine 20% (MUCOMYST) 30ML SOLN VIAL INH SCH ×2 (06:20→19:01)
[2020-09-24] MEDS: KCL 20 MEQ TAB (K-DUR) PO SCH (07:06)
[2020-09-24] MEDS: POTASSIUM CL 10MEQ/50ML IVPB 50 ML IV SCH (07:06)
[2020-09-24] MEDS: MAGNESIUM 1 GM/100 ML IVPB 100 ML IV SCH (07:06)
--- NOTE | 2020-09-24 08:01 | Diagnostic Imaging Report ---
CHEST 1 VIEW, AP/PA ONLY Indication: Respiratory distress Comparison: 09/23/2020 Findings: Stable right subclavian central venous catheter. Tracheostomy tube is stable. Low lung volumes with patchy basilar subsegmental atelectasis. No new pulmonary opacities on portable radiography. No pleural effusion or pneumothorax. Stable cardiac silhouette. Impression: 1. No adverse development. Dictated by: Dictated on workstation # [id number]
--- NOTE | 2020-09-24 08:43 | Progress Note - Hospitalist ---
Subjective HPI/CC On Admission Date Seen by Provider: September 24, 2020 Time Seen by Provider: 09:00 This 55-year-old gentleman presents to the emergency room via EMS from the [facility] after a telehealth visit with a wound care provider. He has a deep sacral wound with concern for possible osteomyelitis. 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 He is nonverbal. He does respond some to stimuli but does not meaningfully communicate. He has a tracheostomy and PEG tube. He also has necrotic decubitus ulcers on his heels. He had a stay at [place] before being admitted to the [facility]. The wound care provider felt he needed assessment in the emergency room with possible admission for IV antibiotics and surgery. Upon my arrival family were not present and the patient noted to be in a persistent vegetative state does not orient to voice or follow commands. Does not appear to be in acute distress. Subjective/Events-last exam Awaiting placement by [facility] declined the case Ethics committee is continuing to work on the process Nurses have issues with futile care Prognosis extremely poor Labs reviewed Conferred with [facility] and social work Objective Exam Vital Signs Vital Signs Date Time Temp Pulse Resp B/P (MAP) Pulse Ox O2 Delivery O2 Flow Rate FiO2 09/25/20 05:40 36.9 Vapotherm 15.00 30.00 09/25/20 05:00 92 17 94 09/25/20 04:23 30 Capillary Refill : Less Than 3 Seconds General Appearance: No Apparent Distress, Other (comatose, contracted) Respiratory: Decreased Breath Sounds Cardiovascular: Regular Rate, Rhythm Results/Procedures Lab Laboratory Tests 09/25/20 01:50 Patient resulted labs reviewed. Assessment/Plan Assessment and Plan Assess & Plan/Chief Complaint Assessment: VDRF Catastrophic CVA 07/14 Contractures Decubitus ulcer stage IV with osteomyelitis Prognosis poor Updated family in face to face meeting yesterday but no changes requested per family Futility assessed 09/15/20: Vent Abx Needs ethics committee evaluation 09/23/20: Updated family today Very difficult family conversation with Kate HAQUE Accusations by brother of patient of withholding information from him due to stability compared to 1.5 weeks ago [facility]? Ethics consult 09/24/20: [place] tomorrow? Ethics consult Critical Care Critically Ill Patient Diagnosis/Problems Diagnosis/Problems (1) Sepsis Status: Acute Qualifiers: Sepsis type: sepsis due to unspecified organism Sepsis acute organ dysfunction status: without acute organ dysfunction Qualified Codes: A41.9 - Sepsis, unspecified organism (2) Decubitus ulcer, heel Status: Acute Qualifiers: Pressure injury stage: unspecified pressure injury stage Laterality: unspecified laterality Qualified Codes: L89.609 - Pressure ulcer of unspecified heel, unspecified stage (3) Hyponatremia Status: Resolved Resolution Date/Time: 09/16/20 @ 13:12 (4) Paralytic syndrome, post-stroke Status: Chronic MARI FRANKLIN DO September 24, 2020 08:43
[2020-09-24] MEDS: LACTATED RINGERS 1,000 ML IV SCH (09:05)
[2020-09-24] MEDS: ENOXAPARIN 40 MG/0.4 ML (LOVENOX) SYR SQ SCH (09:33)
[2020-09-24] MEDS: THIAMINE 100 MG (VITAMIN B-1) TAB PEG SCH ×2 (09:34→20:34)
[2020-09-24] MEDS: FOLIC ACID 1 MG TAB PEG SCH (09:34)
[2020-09-24] MEDS: amLODIPine 10 MG (NORVASC) TAB PEG SCH (09:34)
[2020-09-24] MEDS: FAMOTIDINE 20 MG (PEPCID) TABLET PEG SCH (09:34)
[2020-09-24] MEDS: CYANOCOBALAMIN 1,000 MCG (VITAMIN B-12) TABLET PEG SCH (09:34)
[2020-09-24] MEDS: meTOprolol TARTRATE 50 MG (LOPRESSOR) TAB PEG SCH ×2 (09:34→20:33)
[2020-09-24] MEDS: LACTOBACILLUS ACIDOPHILUS (PROBIOTIC) CAPSULE PEG SCH ×2 (09:34→20:33)
[2020-09-24] MEDS: morphine INJ 10 MG/ML 1ML (SYR OR VIAL) IVP PRN ×3 (09:35→20:34)
[2020-09-24] MEDS: MINOCYCLINE 100 MG PEG SCH ×2 (09:36→20:34)
[2020-09-24] MEDS: SCOPOLAMINE 1.5 MG (TRANSDERM-SCOP) PATCH TD SCH (10:13)
[2020-09-24] MEDS ORDERED: LEVETIRACETAM PEG (10:17)
[2020-09-24] MEDS ORDERED: ENOX40DI8 SQ (10:17)
[2020-09-24] MEDS ORDERED: MINO100T10 PEG (10:17)
[2020-09-24] MEDS ORDERED: HYOS0.1296 SL (10:17)
[2020-09-24] MEDS ORDERED: ACET200V4 INH (10:17)
[2020-09-24] MEDS ORDERED: SCOP1PAT11 TD (10:17)
--- NOTE | 2020-09-24 10:17 | Discharge Summary ---
Discharge Summary Hospital Course Problems/Dx: (1) Sepsis Status: Acute Qualifiers: Qualified Codes: A41.9 - Sepsis, unspecified organism (2) Decubitus ulcer, heel Status: Acute Qualifiers: Qualified Codes: L89.609 - Pressure ulcer of unspecified heel, unspecified stage (3) Hyponatremia Status: Resolved (4) Paralytic syndrome, post-stroke Status: Chronic Hospital Course Date of Admission: Sep 06, 2020 at 18:43 Admission Diagnosis : Family Physician/Provider: Timothy Pate MD Date of Discharge: 09/24/20 Discharge Diagnosis: [ ] Hospital Course: [ ] Labs and Pending Lab Test: Laboratory Tests 09/23/20 11:17: Glucometer 98 09/23/20 14:41: Blood Gas Puncture Site LT RAD, Blood Gas Patient Temperature 97.7, Arterial Blood pH 7.50H, Arterial Blood Partial Pressure CO2 32L, Arterial Blood Partial Pressure O2 60L, Arterial Blood HCO3 25, Arterial Blood Total CO2 26.0, Arterial Blood Oxygen Saturation 92L, Arterial Blood Base Excess 1.8, Ruddy Test YES-POS, Blood Gas Ventilator Setting NO, Blood Gas Inspired Oxygen 25% 09/23/20 18:24: Glucometer 99 09/24/20 02:05: Glucometer 94, White Blood Count 8.4, Red Blood Count 2.82L, Hemoglobin 8.5L, Hematocrit 26L, Mean Corpuscular Volume 92, Mean Corpuscular Hemoglobin 30, Mean Corpuscular Hemoglobin Concent 33, Red Cell Distribution Width 14.5, Platelet Count 322, Mean Platelet Volume 9.2, Immature Granulocyte % (Auto) 1, Neutrophils (%) (Auto) 53, Lymphocytes (%) (Auto) 26, Monocytes (%) (Auto) 7, Eosinophils (%) (Auto) 13H, Basophils (%) (Auto) 1, Neutrophils # (Auto) 4.5, Lymphocytes # (Auto) 2.1, Monocytes # (Auto) 0.6, Eosinophils # (Auto) 1.1H, Basophils # (Auto) 0.1, Immature Granulocyte # (Auto) 0.0, Neutrophils % (Manual) 59, Lymphocytes % (Manual) 20, Monocytes % (Manual) 5, Eosinophils % (Manual) 15, Basophils % (Manual) 1, Blood Morphology Comment NORMAL, Sodium Level 138, Potassium Level 4.1, Chloride Level 105, Carbon Dioxide Level 24, Anion Gap 9, Blood Urea Nitrogen 14, Creatinine 1.17, Estimat Glomerular Filtration Rate > 60, BUN/Creatinine Ratio 12, Glucose Level 94, Calcium Level 8.3L, Phosphorus Level 4.8H, Magnesium Level 1.9 09/24/20 06:43: Glucometer 95 Microbiology 09/13/20 Gram Stain - Final, Complete 09/13/20 Sputum Culture - Final, Complete Acinetobacter baumannii/c. com Usual upper respiratory fredis 09/12/20 Blood Culture - Final, Complete No growth 09/12/20 Urine Culture - Final, Complete YEAST Home Meds Active Reported Vitamin B-12 (Cyanocobalamin (Vitamin B-12)) 1,000 Mcg Tablet 1,000 Mcg PEG DAILY B-1 (Thiamine HCl) 100 Mg Tablet 200 Mg PEG BID TAKES 2 (100MG) TABS Niacin (Niacinamide) 500 Mg Tablet 1,500 Mg PEG DAILY TAKES 3 (500MG) TABS Humalog Kwikpen (Insulin Lispro) 100 Unit/1 Ml Insuln.pen Unit SQ QIDACHS 70-140=0 UNITS CALLS PHYSICIAN IF BS LESS THEN 70 141-180=2 UNITS 181-220=4 UNITS 221-260=6 UNITS 261-300=8 UNITS 301-340=10 UNITS 341-280=12 UNITS 281-400=14 UNIT- CALL PHYSICAN IS BS GREATER THAN 400 [Demeclocycline] 300 Tab 300 Mg PEG BID T-Txcbqc-g-Cysteine (Acetylcysteine) 600 Mg Capsule 1,200 Mg PEG BID Acetaminophen 325 Mg Tablet 650 Mg PEG TID Lopressor (Metoprolol Tartrate) 50 Mg Tablet 50 Mg PEG BID HOLD FOR SBP LESS THAN 100 Acidophilus (Lactobacillus Acidophilus) 1 Each Capsule 1 Each PEG BID Isosource 1.5 Jeff Tube Feed Lq (Lactose-Reduced Food/Fiber) 1,000 Ml Liquid 60 Ml PEG BID 60ML/HR TWO TIMES A DAY START AT 0600. STOP FEEDING AT 2200 Iprat-Albut 0.5-3(2.5) mg/3 ml (Ipratropium/Albuterol Sulfate) 3 Ml Ampul.neb 3 Ml IH Q6H Hydrocodone-Acetamin 5-325 mg (Hydrocodone/Acetaminophen) 1 Each Tablet 2 Tab PEG DAILY GIVE 30MIN PRIOR TO DRESSING PAIN Vitamin D3 (Cholecalciferol (Vitamin D3)) 1,250 Mcg Capsule 1,250 Mcg PEG FRI Folic Acid 1 Mg Tablet 4 Mg PEG DAILY TAKES 1 (4MG) TABS Fish Oil Concentrate ([place]-3 Fatty Acids) 1,000 Mg Capsule 3,000 Mg PEG DAILY TAKES 3 (1000MG) CAPS Acid Occupational Health Rn (FAMOTIDINE) (Famotidine) 20 Mg Tablet 20 Mg PEG BID Remedy Skin Repair (Dimethicone) 118 Ml Cream.ml. 1 Applic TP BID APPLY TO BILATERAL GROIN Coenzyme Q10 (Ubidecarenone) 200 Mg Capsule 200 Mg PEG DAILY Caffeine 200 Mg Tablet 200 Mg PEG BID Beneprotein (Whey Protein Isolate) 1 Each Powd.pack 1 Each PEG Q4H Banatrol Plus Powder Packet (Banana Flakes/Tos) 1 Each Powd.pack 1 Each PEG TID Amlodipine Besylate 10 Mg Tablet 10 Mg PEG DAILY HOLD IF SBP LESS THAN 100 Discharge Physical Examination Vital Signs Vital Signs Date Time Temp Pulse Resp B/P (MAP) Pulse Ox O2 Delivery O2 Flow Rate FiO2 09/24/20 10:00 110 27 137/79 (98) 96 Vapotherm 10.00 30.00 09/24/20 07:45 36.3 09/24/20 06:26 30 Allergies: Coded Allergies: No Known Drug Allergies (Unverified , 09/06/20) Discharge Summary Date of Admission Sep 06, 2020 at 18:43 Date of Discharge Discharge Date: September 24, 2020 Admission Diagnosis 1. Osteomyelitis with secondary sepsis Not severe patient is extremely poor candidate for surgery and would expect wound recurrence even if they were able to close the defect with plastic surgery after the extensive sacral debridement that would be necessary. This was communicated to the patient's family by the emergency room physician and the surgeon last night however they still requested admission with IV antibiotics which we will continue and they are still insistent on full CODE STATUS. I have not yet had the opportunity to discuss the unfortunate circumstances for which antibiotic cure alone is highly unlikely. 2. Persistent vegetative state following a massive CVA in June of this year. Discharge Diagnosis Assessment: VDRF Catastrophic CVA 07/14 Contractures Decubitus ulcer stage IV with osteomyelitis Prognosis poor Updated family in face to face meeting yesterday but no changes requested per family Futility assessed 09/15/20: [facility] ethics committee evaluation 09/23/20: Updated family today Very difficult family conversation with Kate HAQUE Accusations by brother of patient of withholding information from him due to stability compared to 1.5 weeks ago [place]? Ethics consult (1) Sepsis Status: Acute Qualifiers: Qualified Codes: A41.9 - Sepsis, unspecified organism (2) Decubitus ulcer, heel Status: Acute Qualifiers: Qualified Codes: L89.609 - Pressure ulcer of unspecified heel, unspecified stage (3) Hyponatremia Status: Resolved (4) Paralytic syndrome, post-stroke Status: Chronic MARI FRANKLIN DO September 24, 2020 10:17
[2020-09-24] MEDS: HYOSCYAMINE 0.125 MG (LEVSIN) TAB SL PRN (20:33)
[2020-09-25] VITALS (8 sets, daily range): BP systolic 100–125; BP diastolic 59–81
[2020-09-25] MEDS: inSUlin ASPART (NovoLOG) 1 UNIT/0.01 ML (CHARGE PER UNIT) SC SCH ×2 (00:42→05:44)
[2020-09-25] MEDS: HYDROcodone/APAP 5 MG/325 MG (LORTAB) TAB PEG SCH ×2 (01:58→08:38)
[2020-09-25 02:13] LABS: BASOPHILS # (AUTO) 0.1 10^3/uL (0.0-0.1); BASOPHILS % (AUTO) 1 % (0-10); EOSINOPHILS # (AUTO) 1.1 10^3/uL (0.0-0.3); EOSINOPHILS % (AUTO) 10 % (0-10); HEMATOCRIT 26 % (40-54); HEMOGLOBIN 8.4 g/dL (13.3-17.7); LYMPHOCYTES # (AUTO) 2.4 10^3/uL (1.0-4.0); LYMPHOCYTES % (AUTO) 22 % (12-44); MEAN CORPUSCULAR HEMOGLOBIN 30 pg (25-34); MEAN CORPUSCULAR HGB CONC 32 g/dL (32-36); MEAN CORPUSCULAR VOLUME 93 fL (80-99); MEAN PLATELET VOLUME 9.8 fL (9.0-12.2); MONOCYTES # (AUTO) 0.9 10^3/uL (0.0-1.0); MONOCYTES % (AUTO) 8 % (0-12); NEUTROPHILS # (AUTO) 6.5 10^3/uL (1.8-7.8); NEUTROPHILS % (AUTO) 59 % (42-75); PLATELET COUNT 350 10^3/uL (130-400)
[2020-09-25 02:30] LABS: CHLORIDE 105 MMOL/L (98-107); SODIUM 141 MMOL/L (135-145)
[2020-09-25 02:31] LABS: CALCIUM 8.4 MG/DL (8.5-10.1)
[2020-09-25 02:32] LABS: GLUCOSE 89 MG/DL (70-105)
[2020-09-25] MEDS: RT-ALBUTEROL/IPRATROPIUM 3 ML (DUONEB) VIAL INH SCH ×3 (02:32→10:34)
[2020-09-25 02:33] LABS: CARBON DIOXIDE 25 MMOL/L (21-32)
[2020-09-25 02:35] LABS: CREATININE SERUM 1.12 MG/DL (0.60-1.30); GFR ESTIMATED > 60; PHOSPHORUS 3.7 MG/DL (2.3-4.7)
[2020-09-25 02:36] LABS: BUN/CREATININE RATIO 13
[2020-09-25 02:38] LABS: MAGNESIUM 1.7 MG/DL (1.6-2.4)
[2020-09-25] MEDS: POTASSIUM CL 10MEQ/50ML IVPB 50 ML IV SCH (03:55)
[2020-09-25] MEDS: KCL 20 MEQ TAB (K-DUR) PO SCH (03:55)
[2020-09-25] MEDS: MAGNESIUM 1 GM/100 ML IVPB 100 ML IV SCH ×2 (03:56→05:36)
--- NOTE | 2020-09-25 05:09 | Pulmonary Progress Note ---
Subjective Time Seen by a Provider: 05:01 Subjective/Events-last exam Pt has been without ventilator for > 24hrs Sepsis Event Evaluation Height, Weight, BMI Height: '" Weight: lbs. oz. kg; 33.00 BMI Method: Exam Exam Vital Signs Date Time Temp Pulse Resp B/P (MAP) Pulse Ox O2 Delivery O2 Flow Rate FiO2 09/25/20 04:23 94 Trach Collar 30 09/25/20 04:00 92 18 115/80 (92) 92 Vapotherm 15.00 30.00 09/25/20 03:00 95 19 100/59 (73) 99 Vapotherm 15.00 30.00 09/25/20 02:36 99 Vapotherm 15.00 30 09/25/20 02:00 87 112/72 (85) 95 Vapotherm 15.00 30.00 09/25/20 01:00 87 09/25/20 01:00 88 21 125/81 (96) 100 Vapotherm 15.00 30.00 09/25/20 00:00 87 14 119/81 (94) 100 Vapotherm 15.00 30.00 09/24/20 23:47 37.0 Vapotherm 15.00 30.00 09/24/20 23:45 100 Trach Collar 22 09/24/20 23:00 87 19 127/80 (96) 100 Vapotherm 15.00 30.00 09/24/20 22:17 100 Vapotherm 15.00 30 09/24/20 22:00 90 23 118/83 (95) 98 Vapotherm 15.00 30.00 09/24/20 21:00 105 109/73 (85) 98 Vapotherm 15.00 30.00 09/24/20 20:30 96 Trach Collar 36 09/24/20 20:00 104 27 105/67 (80) 94 Vapotherm 15.00 30.00 09/24/20 19:04 93 Vapotherm 15.00 30 09/24/20 19:01 93 Vapotherm 15.00 30 09/24/20 19:00 37.1 Vapotherm 15.00 30.00 09/24/20 19:00 108 09/24/20 19:00 106 30 103/63 (76) 94 Vapotherm 15.00 30.00 09/24/20 18:00 111 15 127/94 (105) 94 Vapotherm 10.00 30.00 09/24/20 17:00 107 32 115/80 (92) 96 Vapotherm 10.00 30.00 09/24/20 16:00 111 31 118/83 (95) 95 Vapotherm 10.00 30.00 09/24/20 16:00 92 Trach Collar 30 09/24/20 15:29 37.0 09/24/20 15:00 107 26 122/84 (97) 98 Vapotherm 10.00 30.00 09/24/20 14:42 97 Vapotherm 15.00 30 09/24/20 14:00 100 24 126/91 (103) 99 Vapotherm 10.00 30.00 09/24/20 13:00 94 23 112/74 (87) 93 Vapotherm 10.00 30.00 09/24/20 12:51 95 09/24/20 12:00 95 21 112/79 (90) 94 Vapotherm 10.00 30.00 09/24/20 12:00 92 Trach Collar 30 09/24/20 12:00 36.4 09/24/20 11:00 99 22 128/80 (96) 98 Vapotherm 10.00 30.00 09/24/20 10:57 98 Vapotherm 15.00 30 09/24/20 10:00 110 27 137/79 (98) 96 Vapotherm 10.00 30.00 09/24/20 09:00 114 33 142/103 (116) 92 Vapotherm 10.00 30.00 09/24/20 08:00 92 Trach Collar 30 09/24/20 08:00 101 19 140/99 (113) 93 Vapotherm 10.00 30.00 09/24/20 07:45 36.3 09/24/20 07:00 96 22 130/105 (113) 92 Vapotherm 10.00 30.00 09/24/20 06:42 96 09/24/20 06:33 09/24/20 06:26 95 Vapotherm 15.00 30 09/24/20 06:24 93 Vapotherm 15.00 30 09/24/20 06:00 92 18 144/93 (110) 97 Vapotherm 10.00 30.00 I & O 09/25/20 07:00 Intake Total 2325 ml Output Total 2225 ml Balance 100 ml Height & Weight Height: '" Weight: lbs. oz. kg; 33.00 BMI Method: General Appearance: No Apparent Distress, WD/WN, Chronically ill HEENT: Other (Mucous membranes moist. Purulent drainage from the right eye with a filmy appearance to the eye surface and slight injection of erythema.) Neck: Normal Inspection Respiratory: Rales, Wheezing Cardiovascular: Regular Rate, Rhythm Capillary Refill: Less Than 3 Seconds Gastrointestinal: normal bowel sounds, non tender, soft Extremity: Normal Inspection, No Pedal Edema Neurologic/Psychiatric: Other (comatose) Skin: Warm/Dry, Other (Necrotic decubitus ulcers on both heels. Very deep sacral wound.) Lymphatic: No Adenopathy Results Lab Laboratory Tests 09/24/20 02:05 09/25/20 01:50 Assessment/Plan Assessment/Plan Chronic respiratory failure with chronic tracheostomy -Pt is doing well without ventilator -- D/C Ventilator -Consideration for discharge back to [facility] -D/C daily labs -Check BNP this AM may need Lasix -Pt is off sedation -Admitted 09/06 Anemia - Continue to monitor - occult stool negative Actinobacter colonization Metabolic lactic acidosis - improving -IVF -Monitor Osteomyelitis - 2/2 grade 4 sacral decubitus ulcer Continue IV zosyn surgery following Improving renal failure b/l decubitus calcaneal ulcers Wound care NIDDM chronic UTI 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 Tube feeding. TREY FIELDS DO September 25, 2020 05:09
[2020-09-25] MEDS: aCETylcysteine 20% (MUCOMYST) 30ML SOLN VIAL INH SCH ×2 (07:16→10:34)
--- NOTE | 2020-09-25 07:29 | Diagnostic Imaging Report ---
INDICATION: Respiratory distress. COMPARISON: 09/24/2020. FINDINGS: The tracheostomy tube and right PICC line remain present in good position. There has been development of mild diffuse infiltrate throughout the right lung. There is bibasilar atelectasis. The left upper lung is clear. The heart is not enlarged. IMPRESSION: Developing infiltrate within the right lung. Bilateral basilar atelectasis. Dictated by: Dictated on workstation # [id number]
[2020-09-25] MEDS: morphine INJ 10 MG/ML 1ML (SYR OR VIAL) IVP PRN (07:48)
[2020-09-25] MEDS: FOLIC ACID 1 MG TAB PEG SCH (08:38)
[2020-09-25] MEDS: THIAMINE 100 MG (VITAMIN B-1) TAB PEG SCH (08:39)
[2020-09-25] MEDS: MINOCYCLINE 100 MG PEG SCH (08:39)
[2020-09-25] MEDS: FAMOTIDINE 20 MG (PEPCID) TABLET PEG SCH (08:39)
[2020-09-25] MEDS: LACTOBACILLUS ACIDOPHILUS (PROBIOTIC) CAPSULE PEG SCH (08:39)
[2020-09-25] MEDS: CYANOCOBALAMIN 1,000 MCG (VITAMIN B-12) TABLET PEG SCH (08:39)
[2020-09-25] MEDS: ENOXAPARIN 40 MG/0.4 ML (LOVENOX) SYR SQ SCH (08:39)
[2020-09-25] MEDS: amLODIPine 10 MG (NORVASC) TAB PEG SCH (08:39)
[2020-09-25] MEDS: meTOprolol TARTRATE 50 MG (LOPRESSOR) TAB PEG SCH (09:27)
--- NOTE | 2020-09-25 11:29 | Progress Note - Hospitalist ---
Subjective HPI/CC On Admission Date Seen by Provider: September 25, 2020 This 55-year-old gentleman presents to the emergency room via [facility] after a telehealth visit with a wound care provider. He has a deep sacral wound with concern for possible osteomyelitis. 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 He is nonverbal. He does respond some to stimuli but does not meaningfully communicate. He has a tracheostomy and PEG tube. He also has necrotic decubitus ulcers on his heels. He had a stay at [place] before being admitted to the [facility]. The wound care provider felt he needed assessment in the emergency room with possible admission for IV antibiotics and surgery. Upon my arrival family were not present and the patient noted to be in a persistent vegetative state does not orient to voice or follow commands. Does not appear to be in acute distress. Objective Exam Vital Signs Vital Signs Date Time Temp Pulse Resp B/P (MAP) Pulse Ox O2 Delivery O2 Flow Rate FiO2 09/25/20 10:35 95 Vapotherm 15.00 35 09/25/20 08:09 37.1 09/25/20 08:00 91 29 109/74 (86) Capillary Refill : Less Than 3 Seconds Results/Procedures Lab Laboratory Tests 09/25/20 01:50 Patient resulted labs reviewed. Assessment/Plan Assessment and Plan Assess & Plan/Chief Complaint Assessment: VDRF Catastrophic CVA 07/14 Contractures Decubitus ulcer stage IV with osteomyelitis Prognosis poor Updated family in face to face meeting yesterday but no changes requested per family Futility assessed 09/15/20: Vent Abx Needs ethics committee evaluation 09/23/20: Updated family today Very difficult family conversation with Kate HAQUE Accusations by brother of patient of withholding information from him due to stability compared to 1.5 weeks ago [place]? Ethics consult 09/24/20: [place] tomorrow? Ethics consult Critical Care Critically Ill Patient Diagnosis/Problems Diagnosis/Problems (1) Sepsis Status: Acute Qualifiers: Sepsis type: sepsis due to unspecified organism Sepsis acute organ dysfunction status: without acute organ dysfunction Qualified Codes: A41.9 - Sepsis, unspecified organism (2) Decubitus ulcer, heel Status: Acute Qualifiers: Pressure injury stage: unspecified pressure injury stage Laterality: unspecified laterality Qualified Codes: L89.609 - Pressure ulcer of unspecified heel, unspecified stage (3) Hyponatremia Status: Resolved Resolution Date/Time: 09/16/20 @ 13:12 (4) Paralytic syndrome, post-stroke Status: Chronic MARI FRANKLIN DO September 25, 2020 11:29
--- NOTE | 2020-09-25 11:31 | Discharge Summary ---
Discharge Summary Hospital Course Was the Problem List Reviewed?: Yes Problems/Dx: (1) Sepsis Status: Acute Qualifiers: Qualified Codes: A41.9 - Sepsis, unspecified organism (2) Decubitus ulcer, heel Status: Acute Qualifiers: Qualified Codes: L89.609 - Pressure ulcer of unspecified heel, unspecified stage (3) Hyponatremia Status: Resolved (4) Paralytic syndrome, post-stroke Status: Chronic Hospital Course Date of Admission: Sep 06, 2020 at 18:43 Admission Diagnosis : Family Physician/Provider: Timothy Pate MD Date of Discharge: 09/25/20 Discharge Diagnosis: Decubitus ulcer sacrum, paraplegia since catastrophic CVA 06/2020, contractures, PEG, Trach, s/p resp distress placed on vent Hospital Course: Hospital course: This is a 55yo male who had a long extended hospital course for 20 days most of it in the ICU after a catastrophic CVA in June with subsequent paraplegia with severe contractures and severe decubitus ulcer that remains with a trach and peg and ultimately went into respiratory distress placed on ventilator and broad-spectrum antibiotics who after lengthy stay was ultimately sent to [place] for longer term care even though ethics consult was performed for full code status with futility and recovery effort but he was discharged in stable condition and will be monitored closely, and I did speak to Dr. Epperson in a physician to physician call. Labs and Pending Lab Test: Laboratory Tests 09/24/20 11:34: Glucometer 99 09/24/20 17:48: Glucometer 120H 09/24/20 23:45: Glucometer 87 09/25/20 01:50: White Blood Count 11.0, Red Blood Count 2.81L, Hemoglobin 8.4L, Hematocrit 26L, Mean Corpuscular Volume 93, Mean Corpuscular Hemoglobin 30, Mean Corpuscular Hemoglobin Concent 32, Red Cell Distribution Width 14.5, Platelet Count 350, Mean Platelet Volume 9.8, Immature Granulocyte % (Auto) 1, Neutrophils (%) (Auto) 59, Lymphocytes (%) (Auto) 22, Monocytes (%) (Auto) 8, Eosinophils (%) (Auto) 10, Basophils (%) (Auto) 1, Neutrophils # (Auto) 6.5, Lymphocytes # (Auto) 2.4, Monocytes # (Auto) 0.9, Eosinophils # (Auto) 1.1H, Basophils # (Auto) 0.1, Immature Granulocyte # (Auto) 0.1, Sodium Level 141, Potassium Level 4.0, Chloride Level 105, Carbon Dioxide Level 25, Anion Gap 11, Blood Urea Nitrogen 14, Creatinine 1.12, Estimat Glomerular Filtration Rate > 60, BUN/Creatinine Ratio 13, Glucose Level 89, Calcium Level 8.4L, Phosphorus Level 3.7, Magnesium Level 1.7, B-Type Natriuretic Peptide 37.3 Microbiology 09/13/20 Gram Stain - Final, Complete 09/13/20 Sputum Culture - Final, Complete Acinetobacter baumannii/c. com Usual upper respiratory fredis 09/12/20 Blood Culture - Final, Complete No growth 09/12/20 Urine Culture - Final, Complete YEAST Home Meds Active Transderm-Scop (Scopolamine) 1 Each Patch.td72 1.5 Mg TD Q72H 30 Days Acetylcysteine 200 Mg/1 Ml Vial 2 Ml INH BID 30 Days [LevETIRAcetam ORAL SOLUTION] 500 Soln 500 Mg PEG BID 30 Days Enoxaparin Sodium 40 Mg/0.4 Ml Syringe 40 Mg SQ Q24H 30 Days Oscimin (Hyoscyamine Sulfate) 0.125 Mg Tablet 0.125 Mg SL Q4H PRN 30 Days Minocycline HCl 100 Mg Tablet 100 Mg PEG BID 30 Days Reported Vitamin B-12 (Cyanocobalamin (Vitamin B-12)) 1,000 Mcg Tablet 1,000 Mcg PEG DAILY B-1 (Thiamine HCl) 100 Mg Tablet 200 Mg PEG BID TAKES 2 (100MG) TABS Niacin (Niacinamide) 500 Mg Tablet 1,500 Mg PEG DAILY TAKES 3 (500MG) TABS Humalog Kwikpen (Insulin Lispro) 100 Unit/1 Ml Insuln.pen Unit SQ QIDACHS 70-140=0 UNITS CALLS PHYSICIAN IF BS LESS THEN 70 141-180=2 UNITS 181-220=4 UNITS 221-260=6 UNITS 261-300=8 UNITS 301-340=10 UNITS 341-280=12 UNITS 281-400=14 UNIT- CALL PHYSICAN IS BS GREATER THAN 400 [Demeclocycline] 300 Tab 300 Mg PEG BID I-Yimrul-c-Cysteine (Acetylcysteine) 600 Mg Capsule 1,200 Mg PEG BID Acetaminophen 325 Mg Tablet 650 Mg PEG TID Lopressor (Metoprolol Tartrate) 50 Mg Tablet 50 Mg PEG BID HOLD FOR SBP LESS THAN 100 Acidophilus (Lactobacillus Acidophilus) 1 Each Capsule 1 Each PEG BID Isosource 1.5 Jeff Tube Feed Lq (Lactose-Reduced Food/Fiber) 1,000 Ml Liquid 60 Ml PEG BID 60ML/HR TWO TIMES A DAY START AT 0600. STOP FEEDING AT 2200 Iprat-Albut 0.5-3(2.5) mg/3 ml (Ipratropium/Albuterol Sulfate) 3 Ml Ampul.neb 3 Ml IH Q6H Hydrocodone-Acetamin 5-325 mg (Hydrocodone/Acetaminophen) 1 Each Tablet 2 Tab PEG DAILY GIVE 30MIN PRIOR TO DRESSING PAIN Vitamin D3 (Cholecalciferol (Vitamin D3)) 1,250 Mcg Capsule 1,250 Mcg PEG FRI Folic Acid 1 Mg Tablet 4 Mg PEG DAILY TAKES 1 (4MG) TABS Fish Oil Concentrate (Oxbow-3 Fatty Acids) 1,000 Mg Capsule 3,000 Mg PEG DAILY TAKES 3 (1000MG) CAPS Acid Plastic Tile Setter (FAMOTIDINE) (Famotidine) 20 Mg Tablet 20 Mg PEG BID Remedy Skin Repair (Dimethicone) 118 Ml Cream.ml. 1 Applic TP BID APPLY TO BILATERAL GROIN Coenzyme Q10 (Ubidecarenone) 200 Mg Capsule 200 Mg PEG DAILY Caffeine 200 Mg Tablet 200 Mg PEG BID Beneprotein (Whey Protein Isolate) 1 Each Powd.pack 1 Each PEG Q4H Banatrol Plus Powder Packet (Banana Flakes/Tos) 1 Each Powd.pack 1 Each PEG TID Amlodipine Besylate 10 Mg Tablet 10 Mg PEG DAILY HOLD IF SBP LESS THAN 100 Assessment/Pt Instructions [place] Discharge Planning: <30 minutes discharge planning Discharge Instructions Discharge Diet: Other Diet (peg tube) Activity as Tolerated: Yes Discharge Physical Examination Vital Signs Vital Signs Date Time Temp Pulse Resp B/P (MAP) Pulse Ox O2 Delivery O2 Flow Rate FiO2 09/25/20 10:35 95 Vapotherm 15.00 35 09/25/20 08:09 37.1 09/25/20 08:00 91 29 109/74 (86) General Appearance: No Apparent Distress, WD/WN, Chronically ill Allergies: Coded Allergies: No Known Drug Allergies (Unverified , 09/06/20) Discharge Summary Date of Admission Sep 06, 2020 at 18:43 Date of Discharge Discharge Date: September 24, 2020 Admission Diagnosis 1. Osteomyelitis with secondary sepsis Not severe patient is extremely poor candidate for surgery and would expect wound recurrence even if they were able to close the defect with plastic surgery after the extensive sacral debridement that would be necessary. This was communicated to the patient's family by the emergency room physician and the surgeon last night however they still requested admission with IV antibiotics which we will continue and they are still insistent on full CODE STATUS. I have not yet had the opportunity to discuss the unfortunate circumstances for which antibiotic cure alone is highly u nlikely. 2. Persistent vegetative state following a massive CVA in June of this year. Discharge Diagnosis Assessment: VDRF Catastrophic CVA 07/14 Contractures Decubitus ulcer stage IV with osteomyelitis Prognosis poor Updated family in face to face meeting yesterday but no changes requested per family Futility assessed 09/15/20: Vent Abx Needs ethics committee evaluation 09/23/20: Updated family today Very difficult family conversation with Kate SW Accusations by brother of patient of withholding information from him due to stability compared to 1.5 weeks ago [place]? Ethics consult 09/24/20: [place] tomorrow? Ethics consult (1) Sepsis Status: Acute Qualifiers: Qualified Codes: A41.9 - Sepsis, unspecified organism (2) Decubitus ulcer, heel Status: Acute Qualifiers: Qualified Codes: L89.609 - Pressure ulcer of unspecified heel, unspecified stage (3) Hyponatremia Status: Resolved (4) Paralytic syndrome, post-stroke Status: Chronic AMRI FRANKLIN DO September 25, 2020 11:31
== END 2020-09-25 12:45 | DRG 870 ==
LOC: ER 14:36 → CSD 18:43 → 4TH 09-11 15:35 → ICU 09-12 11:18
PROVIDERS: ADMIT Internal Medicine; ATTEND Internal Medicine
PROC: 5A1955Z Respiratory Ventilation, Greater than 96 Consecutive Hours (ICD-10-PCS; principal; 2020-09-13)
DX: A41.9 Sepsis, unspecified organism (principal); L89.154 Pressure ulcer of sacral region, stage 4; R65.21 Severe sepsis with septic shock; G82.50 Quadriplegia, unspecified; J96.20 Acute and chronic respiratory failure, unspecified whether with hypoxia or hypercapnia; N17.0 Acute kidney failure with tubular necrosis; M86.9 Osteomyelitis, unspecified; B37.49 Other urogenital candidiasis; N39.0 Urinary tract infection, site not specified; E87.1 Hypo-osmolality and hyponatremia; E87.2 Acidosis; L89.629 Pressure ulcer of left heel, unspecified stage; L89.619 Pressure ulcer of right heel, unspecified stage; E11.69 Type 2 diabetes mellitus with other specified complication; Z79.4 Long term (current) use of insulin; B96.1 Klebsiella pneumoniae [K. pneumoniae] as the cause of diseases classified elsewhere; I69.365 Other paralytic syndrome following cerebral infarction, bilateral; I69.391 Dysphagia following cerebral infarction; I69.320 Aphasia following cerebral infarction; R13.10 Dysphagia, unspecified; Z93.0 Tracheostomy status; Z93.1 Gastrostomy status; I11.9 Hypertensive heart disease without heart failure; H10.9 Unspecified conjunctivitis; R21 Rash and other nonspecific skin eruption; G40.909 Epilepsy, unspecified, not intractable, without status epilepticus; J44.9 Chronic obstructive pulmonary disease, unspecified; E66.9 Obesity, unspecified; Z68.33 Body mass index [BMI] 33.0-33.9, adult; T36.8X5A Adverse effect of other systemic antibiotics, initial encounter
CPT/HCPCS: 36410; 36415; 36600; 71045; 72192; 76937; 80048; 80053; 80202; 81000; 82274; 82805; 82947; 82962; 83605; 83735; 83880; 84100; 84478; 85007; 85025; 85027; 85610; 85730; 86141; 87040; 87070; 87077; 87088; 87186; 87205; 93005; 94002; 94003; 94640; 94760; 94799